=== PATIENT | female | born 1960 | race Caucasian/White ===

== ENCOUNTER 2018-05-17 07:56 | Emergency (ER) | payer BC, OTHER ==
[2018-05-17] MEDS ORDERED: Sodium Chloride 0.9% 10 ML Syringe FLUSH PRN (08:15)
[2018-05-17] MEDS ORDERED: Labetalol 100 MG/20 ML MDV IVPUSH ONE (08:16)
--- NOTE | 2018-05-17 08:21 | EDM.PDOC ---
ED HPI GENERAL MEDICAL PROBLEM - General Chief Complaint: Cardiovascular Problem Stated Complaint: LEFT ARM PAIN Time Seen by Provider: 05/17/18 08:03 Source of Information: Reports: Patient History Limitations: Reports: No Limitations - History of Present Illness INITIAL COMMENTS - FREE TEXT/NARRATIVE: The patient presents with elevated blood pressure and left arm pain. She woke up this morning and she was taking her blood pressure and it was very high over 200 systolic. She took her blood pressure many times and she says her left arm hurts now. She describes it more like tingling. She denies a headache, vision changes, fever, chills, cough, chest pain, shortness of breath, abdominal pain, nausea or vomiting. She has no numbness or weakness. She says her provider Nidia Alaniz took her off her atenolol and hydrochlorothiazide meds. Onset: Gradual Duration: Hour(s): Location: Reports: Upper Extremity, Left Quality: Reports: Other (Tingling) Severity: Mild Improves with: Reports: None Worsens with: Reports: None Associated Symptoms: Reports: No Other Symptoms Left Arm Pain Score (Numeric/FACES): 4 - Related Data Allergies Allergy/AdvReac Type Severity Reaction Status Date / Time adhesive tape Allergy Rash Verified 05/17/18 08:06 simvastatin [From Zocor] Allergy Muscle Verified 05/17/18 08:06 Aches Home Meds: Home Meds Cyanocobalamin/Folic AC/Vit B6 [Folbee] 1 tab PO DAILY 11/01/16 [History] Insulin Glarg,Human.Rec.Analog [Lantus] 33 units INJECT BEDTIME 11/01/16 [ History] Novalog Flexpen 0 units INJECT DAILY 11/01/16 [History] metFORMIN [Glucophage XR] 1,000 mg PO BID 11/01/16 [History] Cholecalciferol (Vitamin D3) [Vitamin D3] 6,000 unit PO DAILY 05/17/18 [History] Lutein/Minerals/Vit A,C & E [Ocuvite] 1 tab PO DAILY 05/17/18 [History] Medium Chain Triglycerides [Mct Oil] 1 ml PO DAILY 05/17/18 [History] Non-Formulary Medication [NF Drug] 1 ml PO DAILY 05/17/18 [History] Non-Formulary Medication [NF Drug] 1 tab PO DAILY 05/17/18 [History] Non-Formulary Medication [NF Drug] 1 tab PO TID 05/17/18 [History] Non-Formulary Medication [NF Drug] 2 ml PO DAILY 05/17/18 [History] Past Medical History HEENT History: Reports: Cataract, Impaired Vision Cardiovascular History: Reports: High Cholesterol, Hypertension Gastrointestinal History: Reports: Chronic Diarrhea, GERD Genitourinary History: Reports: Other (See Below) Other Genitourinary History: states kidneys are failing Endocrine/Metabolic History: Reports: Diabetes, Type II - Past Surgical History GI Surgical History: Reports: Cholecystectomy Social & Family History - Tobacco Use Smoking Status *Q: Former Smoker Used Tobacco, but Quit: Yes Month/Year Tobacco Last Used: 20 years Second Hand Smoke Exposure: No - Caffeine Use Caffeine Use: Reports: Coffee - Recreational Drug Use Recreational Drug Use: No - Living Situation & Occupation Living situation: Reports: Occupation: Employed ED ROS GENERAL - Review of Systems Review Of Systems: See Below Constitutional: Reports: No Symptoms HEENT: Reports: No Symptoms Respiratory: Reports: No Symptoms Cardiovascular: Reports: No Symptoms Endocrine: Reports: No Symptoms GI/Abdominal: Reports: No Symptoms : Reports: No Symptoms Musculoskeletal: Reports: Other (Left arm tingling) Neurological: Reports: No Symptoms ED EXAM, GENERAL - Physical Exam Exam: See Below Exam Limited By: No Limitations General Appearance: Alert, No Apparent Distress Ears: Normal External Exam Nose: Normal Inspection Head: Atraumatic, Normocephalic Neck: Normal Inspection Respiratory/Chest: No Respiratory Distress, Lungs Clear, Normal Breath Sounds Cardiovascular: Regular Rate, Rhythm, No Edema, No Murmur GI/Abdominal: Soft, Non-Tender, No Organomegaly, No Mass Back Exam: Normal Inspection Extremities: Normal Inspection Neurological: Alert, Oriented, No Motor/Sensory Deficits EKG INTERPRETATION EKG Date: 05/17/18 Time: 08:19 Rhythm: Other (Sinus tachycardia) Rate (Beats/Min): 103 [place]: Normal P-Wave: Present QRS: Normal ST-T: Normal QT: Normal Course - Vital Signs Last Recorded V/S: Last Vital Signs Temp 97 F 05/17/18 07:59 Pulse 85 05/17/18 09:21 Resp 18 05/17/18 07:59 BP 176/66 H 05/17/18 09:21 Pulse Ox 98 05/17/18 07:59 - Orders/Labs/Meds Orders: Active Orders 24 hr Category Date Time Status Cardiac Monitoring [RC] . DIRECTED Care 05/17/18 08:15 Active EKG Documentation Completion [RC] STAT Care 05/17/18 08:15 Active Peripheral IV Care [RC] . DIRECTED Care 05/17/18 08:16 Active CBC W/O DIFF,HEMOGRAM [HEME] MOTH@0700 Lab 05/18/18 07:00 Ordered CBC W/O DIFF,HEMOGRAM [HEME] MOTH@0700 Lab 05/21/18 07:00 Ordered CBC W/O DIFF,HEMOGRAM [HEME] MOTH@0700 Lab 05/25/18 07:00 Ordered CBC W/O DIFF,HEMOGRAM [HEME] MOTH@0700 Lab 05/28/18 07:00 Ordered CBC W/O DIFF,HEMOGRAM [HEME] MOTH@0700 Lab 06/01/18 07:00 Ordered CBC W/O DIFF,HEMOGRAM [HEME] MOTH@0700 Lab 06/04/18 07:00 Ordered Heparin Sodium/D5W [Heparin 25,000 Units in D5W 500 ML] Med 05/17/18 09:30 Active 25,000 units in 500 ml IV TITRATE Nitroglycerin/D5W [Nitroglycerin 25 MG/D5W 250 ML] Med 05/17/18 09:30 Active 25 mg in 250 ml IV TITRATE Sodium Chloride 0.9% [Saline Flush] Med 05/17/18 08:15 Active 10 ml FLUSH ASDIRECTED PRN Peripheral IV Insertion Adult [OM.PC] Stat Oth 05/17/18 08:15 Ordered Medication Orders Heparin Sodium/Dextrose (Heparin 25,000 Units In D5w 500 Ml) 25,000 units in 500 mls @ 20.257 mls/hr IV TITRATE CUATE; Protocol Nitroglycerin/Dextrose (Nitroglycerin 25 Mg/D5w 250 Ml) 25 mg in 250 mls @ 3 mls/hr IV TITRATE CUATE; Protocol Sodium Chloride (Saline Flush) 10 ml FLUSH ASDIRECTED PRN PRN Reason: Keep Vein Open Last Admin: 05/17/18 08:28 Dose: 10 ml Labs: Laboratory Tests 05/17/18 05/17/18 Range/Units 08:25 08:25 WBC 9.57 (3.98-10.04) K/mm3 RBC 4.58 (3.98-5.22) M/mm3 Hgb 10.8 L (11.2-15.7) gm/L Hct 35.9 (34.1-44.9) % MCV 78.4 L (79.4-94.8) fl MCH 23.6 L (25.6-32.2) pg MCHC 30.1 L (32.2-35.5) g/dl RDW Std Deviation 47.7 H (36.4-46.3) fL Plt Count 417 H (182-369) K/mm3 MPV 9.9 (9.4-12.3) fl Neut % (Auto) 74.7 H (34.0-71.1) % Lymph % (Auto) 16.6 L (19.3-51.7) % [place] % (Auto) 6.8 (4.7-12.5) % Eos % (Auto) 1.5 (0.7-5.8) Baso % (Auto) 0.2 (0.1-1.2) % Neut # (Auto) 7.15 H (1.56-6.13) K/mm3 Lymph # (Auto) 1.59 (1.18-3.74) K/mm3 [place] # (Auto) 0.65 H (0.24-0.36) K/mm3 Eos # (Auto) 0.14 (0.04-0.36) K/mm3 Baso # (Auto) 0.02 (0.01-0.08) K/mm3 Sodium 142 (136-145) mEq/L Potassium 3.3 L (3.5-5.1) mEq/L Chloride 105 (98-107) mEq/L Carbon Dioxide 24 (21-32) mEq/L Anion Gap 16.3 H (5-15) BUN 15 (7-18) mg/dL Creatinine 1.1 H (0.55-1.02) mg/dL Est Cr Clr Drug Dosing 39.07 mL/min Estimated GFR (MDRD) 51 (>60) mL/min BUN/Creatinine Ratio 13.6 L (14-18) Glucose 232 H (74-106) mg/dL Calcium 8.6 (8.5-10.1) mg/dL Total Bilirubin 0.3 (0.2-1.0) mg/dL AST 40 H (15-37) U/L ALT 23 (14-59) U/L Alkaline Phosphatase 133 H (46-116) U/L Troponin I 3.749 H* (0.00-0.056) ng/mL Total Protein 7.4 (6.4-8.2) g/dl Albumin 3.2 L (3.4-5.0) g/dl Globulin 4.2 gm/dL Albumin/Globulin Ratio 0.8 L (1-2) Meds: Medications Generic Name Dose Route Start Last Admin Trade Name Freq PRN Reason Stop Dose Admin Heparin Sodium/Dextrose 25,000 units in 500 mls @ 20.257 mls/hr 05/17/18 09: 30 Heparin 25,000 Units In D5w 500 Ml IV TITRATE CUATE Protocol 11 UNITS/KG/HR Nitroglycerin/Dextrose 25 mg in 250 mls @ 3 mls/hr 05/17/18 09:30 Nitroglycerin 25 Mg/D5w 250 Ml IV TITRATE CUATE Protocol Sodium Chloride 10 ml 05/17/18 08:15 05/17/18 08:28 Saline Flush FLUSH 10 ml ASDIRECTED PRN Administration Keep Vein Open Discontinued Medications Generic Name Dose Route Start Last Admin Trade Name Freq PRN Reason Stop Dose Admin Aspirin 324 mg 05/17/18 09:24 05/17/18 09:32 Aspirin PO 05/17/18 09:25 324 mg ONETIME ONE Administration Heparin Sodium (Porcine) 5,000 units 05/17/18 09:25 Heparin Sodium IVPUSH 05/17/18 09:26 ONETIME ONE Labetalol HCl 20 mg 05/17/18 08:16 05/17/18 08:27 Normodyne IVPUSH 05/17/18 08:17 20 mg ONETIME ONE Administration Protocol - Re-Assessments/Exams Free Text/Narrative Re-Assessment/Exam: 05/17/18 08:24 I ordered an IV saline lock, EKG, labs and labetalol 20mg IV. Her EKG shows a sinus tachycardia with no acute changes. The patient told my nurse later that she is on a bunch of homeopathic meds from a provider in [place]. 05/17/18 09:34 Her Hgb was a little low at 10.8. Her platelets were elevated at 417. Her K was low at 3.3. Her anion gap is elevated at 16.3. Her creatinine is elevated at 1.1. Her glucose is elevated at 232. Her AST was elevated at 40. Her Alk Phos was elevated at 133. Her Troponin was very elevated at 3.749. She has no more tingling or pain in her left arm. She is having a nonSTEMI. I ordered aspirin 324mg PO, heparin bolus of 5,000units IV, heparin drip at 1000units per hour, and nitro 3mls/hr. She tells me now that she did have some right arm pain on Friday when she was working. It went away and she did not think anything of it. She did not have chest pain or shortness of breath. This morning she had some left arm pain/tingling. She had no shortness of breath or chest pain. She has never had an NV or trouble with her heart before. 05/17/18 09:47 I called [facility] in [place] and talked with the worm packer Dr Garrett and she wanted metoprolol 25mg PO and lipitor. We do not have lipitor so I ordered simvistatin 40mg. I also talked with the hospitalist Dr Hernandez and he accepted the patient. Departure - Departure Time of Disposition: 09:50 Disposition: DC/Tfer to Acute Hospital 02 Reason for Transfer *Q: Primary PCI Indicated Condition: Serious Clinical Impression: Non-STEMI (non-ST elevated myocardial infarction), Hypertensive emergency Referrals: PCP,None [Primary Care Provider] - Forms: ED Department Discharge - My Orders Last 24 Hours: My Active Orders 05/17/18 08:15 Cardiac Monitoring [RC] . DIRECTED EKG Documentation Completion [RC] STAT Sodium Chloride 0.9% [Saline Flush] 10 ml FLUSH ASDIRECTED PRN Peripheral IV Insertion Adult [OM.PC] Stat 05/17/18 08:16 Peripheral IV Care [RC] . DIRECTED 05/17/18 09:30 Heparin Sodium/D5W [Heparin 25,000 Units in D5W 500 ML] 25,000 units in 500 ml IV TITRATE Nitroglycerin/D5W [Nitroglycerin 25 MG/D5W 250 ML] 25 mg in 250 ml IV TITRATE 05/18/18 07:00 CBC W/O DIFF,HEMOGRAM [HEME] MOTH@0700 05/21/18 07:00 CBC W/O DIFF,HEMOGRAM [HEME] MOTH@69905/25/18 07:00 CBC W/O DIFF,HEMOGRAM [HEME] MOTH@69905/28/18 07:00 CBC W/O DIFF,HEMOGRAM [HEME] MOTH@69906/01/18 07:00 CBC W/O DIFF,HEMOGRAM [HEME] MOTH@69906/04/18 07:00 CBC W/O DIFF,HEMOGRAM [HEME] MOTH@699 - Assessment/Plan Last 24 Hours: My Active Orders 05/17/18 08:15 Cardiac Monitoring [RC] . DIRECTED EKG Documentation Completion [RC] STAT Sodium Chloride 0.9% [Saline Flush] 10 ml FLUSH ASDIRECTED PRN Peripheral IV Insertion Adult [OM.PC] Stat 05/17/18 08:16 Peripheral IV Care [RC] . DIRECTED 05/17/18 09:30 Heparin Sodium/D5W [Heparin 25,000 Units in D5W 500 ML] 25,000 units in 500 ml IV TITRATE Nitroglycerin/D5W [Nitroglycerin 25 MG/D5W 250 ML] 25 mg in 250 ml IV TITRATE 05/18/18 07:00 CBC W/O DIFF,HEMOGRAM [HEME] MOTH@69905/21/18 07:00 CBC W/O DIFF,HEMOGRAM [HEME] MOTH@69905/25/18 07:00 CBC W/O DIFF,HEMOGRAM [HEME] MOTH@69905/28/18 07:00 CBC W/O DIFF,HEMOGRAM [HEME] MOTH@69906/01/18 07:00 CBC W/O DIFF,HEMOGRAM [HEME] MOTH@69906/04/18 07:00 CBC W/O DIFF,HEMOGRAM [HEME] MOTH@699
[2018-05-17] MEDS ORDERED: Aspirin 81 MG Tab.Chew PO ONE (09:24)
[2018-05-17] MEDS ORDERED: Heparin Sodium 5,000 Units/ML Vial IVPUSH ONE (09:25)
[2018-05-17] MEDS ORDERED: Nitroglycerin/D5W 25 MG/250 ML BOTTLE IV SCH (09:30)
[2018-05-17] MEDS ORDERED: Heparin Sodium/D5W 25,000 UNITS/500 ML BAG IV SCH (09:30)
[2018-05-17] MEDS ORDERED: Nitroglycerin/D5W 25 MG/250 ML BOTTLE IV ONE (09:39)
[2018-05-17] MEDS ORDERED: Metoprolol Tartrate 25 MG Tab PO ONE (09:42)
[2018-05-17] MEDS ORDERED: Simvastatin 40 MG Tab PO ONE (09:46)
[2018-05-17 10:34] VITALS: BP 177/66
--- NOTE | 2018-05-18 08:35 | CR ---
Chest: Portable view of the chest was obtained. Comparison: No prior chest x-ray. Heart size is accentuated from portable technique. Upper mediastinum is within normal limits. Lungs are clear without acute parenchymal change. Bony structures are grossly intact. Impression: 1. Nothing acute is seen on portable chest x-ray. Diagnostic code #1
== END 2018-05-17 10:25 ==
LOC: JD.ED 07:56
DX: I21.4 Non-ST elevation (NSTEMI) myocardial infarction (principal); I16.0 Hypertensive urgency; E11.9 Type 2 diabetes mellitus without complications; I10 Essential (primary) hypertension; E78.00 Pure hypercholesterolemia, unspecified; Z79.4 Long term (current) use of insulin; Z79.899 Other long term (current) drug therapy; Z91.09 Other allergy status, other than to drugs and biological substances; Z88.8 Allergy status to other drugs, medicaments and biological substances
CPT/HCPCS: 36415; 71045; 80053; 84484; 85025; 93005; 96365; 96368; 96375; 96376; 99285; A9270; J1644; J3490; J7050

== ENCOUNTER 2018-12-10 16:34 | Emergency (ER) | payer BC, MEDICAID ==
[2018-12-10 16:46] VITALS: BP 153/70
[2018-12-10] MEDS ORDERED: Acetaminophen 325 MG Tab PO ONE (16:46)
--- NOTE | 2018-12-10 17:19 | CT ---
Head CT Technique: Multiple axial sections were obtained to the brain. Intravenous contrast was not utilized. Comparison: Prior head CT study of 07/24/18. Findings: Ventricles along with basal cisterns and sulci over the convexities are mildly prominent. Old infarct is noted within the right frontal region. Mild diminished density is noted within portions of the periventricular white matter compatible with small vessel ischemic demyelination change. Old lacunar infarct is noted within the left basal ganglia. No other abnormal parenchymal densities are seen. No evidence of intracranial hemorrhage. No midline shift or mass effect is seen. Bone window settings were reviewed which shows soft tissue swelling within the left frontal scalp. No acute calvarial abnormality is seen. Visualized sinuses are clear. Impression: 1. Senescent change as noted above. 2. No acute intracranial abnormality is seen. Soft tissue swelling is seen within the left frontal scalp. No acute calvarial fracture is seen. Diagnostic code #2
--- NOTE | 2018-12-10 18:21 | EDM.PDOC ---
ED HPI GENERAL MEDICAL PROBLEM - General Chief Complaint: Head Injury Stated Complaint: [facility] Time Seen by Provider: 12/10/18 16:40 Source of Information: Reports: Patient, RN Notes Reviewed - History of Present Illness INITIAL COMMENTS - FREE TEXT/NARRATIVE: 58-year-old female tripped injuring her right knee and also hitting her forehead and nose on pavement. She was in the process of getting into a vehicle , states her pain got caught up in her feet. There was no LOC. She has very minimal headache. However she is on eliquis blood thinner. She did scrape up her nose pretty good. However there is no bleeding from either nares. No nausea or vomiting. Her right knee is what hurts the most at this time. No chest pain or difficulty breathing. Face/Facial Pain Score (Numeric/FACES): 0 Right Knee Pain Score (Numeric/FACES): 5 - Related Data Allergies Allergy/AdvReac Type Severity Reaction Status Date / Time adhesive tape Allergy Rash Verified 12/10/18 19:51 simvastatin [From Zocor] AdvReac Muscle Verified 12/10/18 19:51 Aches Aaxfugg-Vil-Dtp Reductase AdvReac Muscle Verified 12/10/18 19:51 Inhibitor Aches Home Meds: Home Meds metFORMIN [Glucophage XR] 1,000 mg PO BID 11/01/16 [History] Lutein/Minerals/Vit A,C & E [Ocuvite] 1 tab PO DAILY 05/17/18 [History] ALPRAZolam [Xanax] 1 tab PO TID PRN 07/21/18 [History] Apixaban [Eliquis] 5 mg PO BID 07/21/18 [History] Carvedilol 25 mg PO BID 07/21/18 [History] Clopidogrel [Plavix] 75 mg PO DAILY 07/21/18 [History] Furosemide [Lasix] 20 mg PO DAILY 07/21/18 [History] Insulin Aspart [NovoLOG] 4 - 15 unit SUBCUT QID 07/21/18 [History] Insulin Glarg,Human.Rec.Analog [Lantus] 35 units SUBCUT BID 07/21/18 [History] Nitroglycerin [Nitrostat] 0.4 mg PO ASDIRECTED PRN 07/21/18 [History] Polyethylene Glycol [Polyox Wsr-301] 1 pack PO DAILY 07/21/18 [History] Pravastatin [Pravachol] 20 mg PO DAILY 07/21/18 [History] amLODIPine Besylate [Amlodipine Besylate] 5 mg PO DAILY 07/21/18 [History] Lisinopril [Prinivil] 10 mg PO DAILY #30 tablet 07/24/18 [Rx] Acetaminophen/HYDROcodone [Alma 325-5 MG] 1 tab PO Q6H PRN #10 tablet 12/10/18 [Rx] Cyanocobalamin/Folic AC/Vit B6 [Folbee] 1 tab PO DAILY 12/10/18 [History] Past Medical History HEENT History: Reports: Cataract, Impaired Vision Cardiovascular History: Reports: High Cholesterol, Hypertension Gastrointestinal History: Reports: Chronic Diarrhea, GERD Genitourinary History: Reports: Other (See Below) Other Genitourinary History: states kidneys are failing Neurological History: Reports: CVA Endocrine/Metabolic History: Reports: Diabetes, Type II - Infectious Disease History Infectious Disease History: Reports: Chicken Pox, Measles, Mumps - Past Surgical History GI Surgical History: Reports: Cholecystectomy Social & Family History - Family History Family Medical History: Noncontributory - Tobacco Use Smoking Status *Q: Never Smoker Second Hand Smoke Exposure: No - Caffeine Use Caffeine Use: Reports: Coffee - Recreational Drug Use Recreational Drug Use: No - Living Situation & Occupation Living situation: Reports: Occupation: Employed ED ROS GENERAL - Review of Systems Review Of Systems: See Below Constitutional: Denies: Diaphoresis HEENT: Reports: Nose Pain. Denies: Ear Discharge, Ear Pain, Nosebleed Respiratory: Denies: Shortness of Breath, Wheezing Cardiovascular: Denies: Chest Pain GI/Abdominal: Denies: Abdominal Pain, Nausea, Vomiting Musculoskeletal: Reports: Joint Pain (Right knee), Joint Swelling (Right knee) Neurological: Reports: Dizziness (Mild mild), Headache. Denies: Numbness, Tingling ED EXAM, HEAD INJURY - Physical Exam Exam: See Below General Appearance: Alert, Mild Distress Head: Facial Abrasions (There is some significant abrasion injury of the nose but no major swelling tenderness or deformity of the nose and no active bleeding ), Facial Swelling (There is swelling of the upper forehead). No: Green's Sign , Raccoon Eyes Eyes: Bilateral Eye: PERRL Ears: Normal External Exam, Normal Canal Throat/Mouth: Normal Inspection, Normal Oropharynx Neck: Non-Tender, Full Range of Motion Respiratory: No Respiratory Distress, Lungs Clear Cardiovascular: Regular Rate, Rhythm Extremities: Normal Inspection, Normal Range of Motion, Joint Swelling (There is mild swelling of the right knee and moderate tenderness anteriorly and laterally, pain with motion, joint is stable,mild superficial abrasion anteriorly) Neurologic: No Motor/Sensory Deficits Skin: Warm/Dry Course - Vital Signs Last Recorded V/S: Last Vital Signs Temp 97.3 F 12/10/18 16:37 Pulse 71 12/10/18 16:37 Resp 18 12/10/18 16:37 BP 153/70 H 12/10/18 16:37 Pulse Ox 99 12/10/18 16:37 - Orders/Labs/Meds Meds: Medications Discontinued Medications Generic Name Dose Route Start Last Admin Trade Name Corrina PRN Reason Stop Dose Admin Acetaminophen 975 mg 12/10/18 16:46 12/10/18 16:55 Tylenol PO 12/10/18 16:47 975 mg NOW ONE Administration Ketorolac Tromethamine 30 mg 12/10/18 18:28 12/10/18 18:39 Toradol IM 12/10/18 18:29 30 mg ONETIME ONE Administration - Re-Assessments/Exams Free Text/Narrative Re-Assessment/Exam: 12/11/18 08:42. Radiology report this morning that indicates there is a nondisplaced lateral tibial plateau fracture, possible medial tibial plateau. See radiology report for details. I did not appreciate those findings at time of her visit yesterday. Now when I go back and look I do see the lateral hairline nondisplaced fracture. I have called, talked to patient, she is going to return for knee immobilizer and crutches. She had a walker at home but is having a lot of discomfort with any type of weightbearing. She will need to follow up with one of our Orthopedists next week. 12/11/18 14:30. Patient did return to the ED for knee immobilizer and consideration was given for having her use crutches at home. However her mobility is not adequate to allow for that. We have asked Faith our nursing home social worker to come visit with her and she has arranged for [facility] to [facility]. She does have insurance that will cover and she has obtained authorization. I have written preliminary fdc admission orders. I will discuss this with Dr. Winters her regular physician so he is made aware of her injury and being admitted to the fdc. Have written preliminary admit orders for the fdc and also have recomended she see one of our Orthpedists early next week. We do not have any Ortho service station helper today. Departure - Departure Time of Disposition: 18:19 Disposition: DC[facility] to [facility] Condition: Fair Clinical Impression: Fall Qualifiers: Encounter type: initial encounter Qualified Code(s): W19.XXXA - Unspecified fall, initial encounter Forehead contusion Qualifiers: Encounter type: initial encounter Qualified Code(s): S00.83XA - Contusion of other part of head, initial encounter Nose abrasion Qualifiers: Encounter type: initial encounter Qualified Code(s): S00.31XA - Abrasion of nose, initial encounter Tibial plateau fracture, right Qualifiers: Encounter type: initial encounter Fracture type: closed Qualified Code(s): S82.141A - Displaced bicondylar fracture of right tibia, initial encounter for closed fracture - Discharge Information Prescriptions: Acetaminophen/HYDROcodone [Alma 325-5 MG] 1 tab PO Q6H PRN #10 tablet PRN Reason: Pain Instructions: Facial or Scalp Contusion, [id number], Contusion, [id number] Referrals: Lily Dickey MD [Primary Care Provider] - Forms: ED Department Discharge Additional Instructions: Kiet wrap right knee, knee immobilize, crutches, nonweightbearing as much as possible. ice packs and elevation as needed for swelling, Tylenol for mild to moderate pain or hydrocodone if needed for more severe pain, do not take Tylenol and hydrocodone at the same time. You will need to see an Orthopedist next week. See Dr Matos, Bone and [facility] at our [facility] clinic here in [place], [phone]za at [facility], [phone]. Call for appointment. Return to ED as needed if symptoms worsening in any way.
[2018-12-10] MEDS ORDERED: Ketorolac 30 MG/ML SDV IM ONE (18:28)
--- NOTE | 2018-12-11 07:16 | CR ---
Right knee: Four views of the right knee were obtained. Comparison: No previous knee study. Fracture is identified within the lateral tibial plateau. Possible fracture within the medial tibial plateau is also noted. No significant displacement is seen on this study. Fat fluid level is seen within the suprapatellar pouch secondary to the fracture. No additional abnormality is seen. Impression: 1. Lateral tibial plateau fracture and possible medial tibial plateau fracture. No significant displacement is seen. 2. Fat/fluid level within the suprapatellar pouch. Diagnostic code #3
== END 2018-12-10 19:24 ==
LOC: JD.ED 16:34
DX: S82.141A Displaced bicondylar fracture of right tibia, initial encounter for closed fracture (principal); S00.83XA Contusion of other part of head, initial encounter; S00.31XA Abrasion of nose, initial encounter; W01.10XA Fall on same level from slipping, tripping and stumbling with subsequent striking against unspecified object, initial encounter; Z88.8 Allergy status to other drugs, medicaments and biological substances; Z79.899 Other long term (current) drug therapy; E78.00 Pure hypercholesterolemia, unspecified; I10 Essential (primary) hypertension; E11.9 Type 2 diabetes mellitus without complications; Z86.73 Personal history of transient ischemic attack (TIA), and cerebral infarction without residual deficits
CPT/HCPCS: 70450; 73564; 96372; 99283; A9270; J1885

== ENCOUNTER 2019-05-13 06:50 | Day surgery (SDC) | payer MEDICAID ==
[2019-05-13] MEDS ORDERED: Lidocaine 1% PF 2 ML SDV INJECT SCH (07:00)
[2019-05-13] MEDS ORDERED: Pilocarpine 4% Ophth Soln 15 ML Bot EYELF SCH (07:00)
[2019-05-13] MEDS ORDERED: Cefuroxime 10 MG/ML SYRINGE EYELF SCH (07:00)
[2019-05-13] MEDS: Polymyxin B/Trimethoprim 10 ML Bottle EYELF SCH ×3 (07:10→08:38)
[2019-05-13] MEDS: Brimonidine 0.2% Ophth Soln 15 ML Bottle EYELF SCH ×3 (07:15→08:38)
[2019-05-13] MEDS: Phenylephrine 2.5% Ophth Soln 2 ML Bot EYELF SCH ×5 (07:20→08:20)
[2019-05-13] MEDS: Tropicamide 1% Ophth Soln 15 ML Bottle EYELF SCH ×4 (07:25→08:09)
--- NOTE | 2019-05-13 07:25 | PCM.PREANE ---
Preanesthetic Assessment - Anesthesia/Transfusion/Family Hx Anesthesia History: Prior Anesthesia Without Reaction Family History of Anesthesia Reaction: No Transfusion History: Prior Transfusion Without Reaction Intubation History: Unknown - Review of Systems General: No Symptoms Pulmonary: No Symptoms Cardiovascular: No Symptoms Gastrointestinal: No Symptoms Neurological: No Symptoms Other: Reports: Diabetes (BS 53 @ 0712 pt given few sips of juice, asymptomatic) - Physical Assessment NPO Status Date: 05/13/19 NPO Status Time: 07:12 ASA Class: 2 Mental Status: Alert & Oriented x3 Airway Class: Mallampati = 2 Dentition: Reports: Normal Dentition Thyro-Mental Finger Breadths: 3 Mouth Opening Finger Breadths: 3 ROM/Head Extension: Full Lungs: Clear to Auscultation, Normal Respiratory Effort Cardiovascular: Regular Rate, Regular Rhythm - Lab Values: Laboratory Last Values POC Glucose 53 mg/dL (80-115) L 05/13/19 07:12 - Allergies Allergies/Adverse Reactions: Allergies Allergy/AdvReac Type Severity Reaction Status Date / Time adhesive tape Allergy Rash Verified 05/12/19 14:17 simvastatin [From Zocor] AdvReac Muscle Verified 05/12/19 14:17 Aches Gseqfwy-[id number]-[id number] Reductase AdvReac Muscle Verified 05/12/19 14:17 Inhibitor Aches - Acknowledgements Anesthesia Type Planned: MAC Pt an Appropriate Candidate for the Planned Anesthesia: Yes Alternatives and Risks of Anesthesia Discussed w Pt/Guardian: Yes Pt/Guardian Understands and Agrees with Anesthesia Plan: Yes PreAnesthesia Questionnaire HEENT History: Reports: Cataract, Impaired Vision Cardiovascular History: Reports: High Cholesterol, Hypertension, Other (See Below) (ASCVD) Respiratory History: Reports: None Gastrointestinal History: Reports: Chronic Diarrhea, GERD Genitourinary History: Reports: Other (See Below) (renal disease stage 3) Other Genitourinary History: states kidneys are failing Musculoskeletal History: Reports: Arthritis, Other (See Below) (pt states has a stiff neck today, full ROM noted) Neurological History: Reports: CVA (2018, no residual noted) Endocrine/Metabolic History: Reports: Diabetes, Type I, Diabetes, Type II - Infectious Disease History Infectious Disease History: Reports: Chicken Pox, Measles, Mumps - Past Surgical History HEENT Surgical History: Reports: Cataract Surgery GI Surgical History: Reports: Bariatric Procedure, Cholecystectomy, Other (See Below) Dermatological Surgical History: Reports: Plastic Surgical Reconstruction/ Repair (pt states surgeries to remove skin after gastric bypass, arms, abdomen, knees) - SUBSTANCE USE Smoking Status *Q: Former Smoker - HOME MEDS Home Medications: Home Meds metFORMIN [Glucophage XR] 1,000 mg PO BID 11/01/16 [History] Lutein/Minerals/Vit A,C & E [Ocuvite] 1 tab PO DAILY 05/17/18 [History] ALPRAZolam [Xanax] 1 tab PO TID PRN 07/21/18 [History] Apixaban [Eliquis] 5 mg PO BID 07/21/18 [History] Carvedilol 25 mg PO BID 07/21/18 [History] Clopidogrel [Plavix] 75 mg PO DAILY 07/21/18 [History] Furosemide [Lasix] 20 mg PO DAILY 07/21/18 [History] Insulin Aspart [NovoLOG] 4 - 15 unit SUBCUT QID 07/21/18 [History] Insulin Glarg,Human.Rec.Analog [Lantus] 35 units SUBCUT BID 07/21/18 [History] Nitroglycerin [Nitrostat] 0.4 mg PO ASDIRECTED PRN 07/21/18 [History] Polyethylene Glycol [Polyox Wsr-301] 1 pack PO DAILY 07/21/18 [History] Pravastatin [Pravachol] 20 mg PO DAILY 07/21/18 [History] amLODIPine Besylate [Amlodipine Besylate] 5 mg PO DAILY 07/21/18 [History] Lisinopril [Prinivil] 10 mg PO DAILY #30 tablet 07/24/18 [Rx] Acetaminophen/HYDROcodone [[place] 325-5 MG] 1 tab PO Q6H PRN #10 tablet 12/10/18 [Rx] Cyanocobalamin/Folic AC/Vit B6 [Folbee] 1 tab PO DAILY 12/10/18 [History] - CURRENT (IN HOUSE) MEDS Current Meds: Current Medications Brimonidine Tartrate (Brimonidine Tartrate 0.2% Ophth Soln) 0 ml EYELF ASDIRECTED CUATE Stop: 05/13/19 18:00 Last Admin: 05/13/19 07:15 Dose: 1 drop Cefuroxime Sodium (Zinacef) 0 mg EYELF ASDIRECTED CAUTE Stop: 05/13/19 18:00 Lidocaine HCl (Xylocaine-Mpf 1%) 0 ml INJECT ASDIRECTED CUATE Stop: 05/13/19 18:00 Phenylephrine HCl (Giovany-Synephrine 2.5% Ophth Soln) 0 ml EYELF ASDIRECTED CUATE Stop: 05/13/19 18:00 Pilocarpine HCl (Pilocar 4% Ophth Soln) 0 ml EYELF ASDIRECTED CUATE Stop: 05/13/19 18:00 Polymyxin/Trimethoprim Sulfate (Polytrim Ophth Soln) 0 ml EYELF ASDIRECTED CUATE Stop: 05/13/19 18:00 Last Admin: 05/13/19 07:10 Dose: 1 drop Tetracaine HCl (Tetracaine 0.5% Steri-Unit Jennifer) 0 ml EYELF ASDIRECTED CUATE Stop: 05/13/19 18:00 Tropicamide (Mydriacyl 1% Ophth Soln) 0 ml EYELF ASDIRECTED CUATE Stop: 05/13/19 18:00
[2019-05-13] MEDS: Tetracaine HCl/PF 0.5% 4 ML Bottle EYELF SCH ×4 (08:12→08:27)
--- NOTE | 2019-05-13 08:42 | PCM48HPAN ---
Post Anesthesia Note - EVALUATION WITHIN 48HRS OF ANESTHETIC Vital Signs in Normal Range: Yes Patient Participated in Evaluation: Yes Respiratory Function Stable: Yes Airway Patent: Yes Cardiovascular Function Stable: Yes Hydration Status Stable: Yes Pain Control Satisfactory: Yes Nausea and Vomiting Control Satisfactory: Yes Mental Status Recovered: Yes Vital Signs: Last Vital Signs Temp 36.5 C 05/13/19 07:00 Pulse 66 05/13/19 07:00 Resp 16 05/13/19 07:00 BP 181/65 H 05/13/19 07:00 Pulse Ox 100 05/13/19 07:00
[2019-05-13 09:01] VITALS: BP 159/64
== END 2019-05-13 08:54 | disposition home or self-care (01) ==
LOC: JD.SDS 06:50
PROVIDERS: ATTEND Ophthalmology
DX: E11.36 Type 2 diabetes mellitus with diabetic cataract (principal); H25.812 Combined forms of age-related cataract, left eye; H21.81 Floppy iris syndrome; H21.42 Pupillary membranes, left eye; I12.9 Hypertensive chronic kidney disease with stage 1 through stage 4 chronic kidney disease, or unspecified chronic kidney disease; E11.22 Type 2 diabetes mellitus with diabetic chronic kidney disease; N18.3 Chronic kidney disease, stage 3 (moderate); E78.00 Pure hypercholesterolemia, unspecified; Z88.8 Allergy status to other drugs, medicaments and biological substances; Z91.048 Other nonmedicinal substance allergy status; Z98.41 Cataract extraction status, right eye; Z96.1 Presence of intraocular lens; Z87.891 Personal history of nicotine dependence; Z83.518 Family history of other specified eye disorder; Z79.01 Long term (current) use of anticoagulants; Z79.02 Long term (current) use of antithrombotics/antiplatelets; Z79.4 Long term (current) use of insulin; Z79.899 Other long term (current) drug therapy
CPT/HCPCS: 66982; 82962; J0697; J2001; C1780

== ENCOUNTER 2020-05-02 17:08 | Inpatient (IN) | payer MEDICAID ==
--- NOTE | 2020-05-02 17:15 | EDM.PDOC ---
ED HPI GENERAL MEDICAL PROBLEM - General Chief Complaint: Neuro Symptoms/Deficits Stated Complaint: [facility] Time Seen by Provider: 05/02/20 17:14 Source of Information: Reports: Patient, EMS, [facility] Records History Limitations: Reports: No Limitations - History of Present Illness INITIAL COMMENTS - FREE TEXT/NARRATIVE: 60-year-old female presents to the ED per [facility] from local long term--[facility]. Apparently she was getting ready for supper and at about 1624 hrs. started to have garbled speech which was hard for other people to understand. Patient recognizes that her speech is not coming out correctly. She has dysarthric speech and some troubles finding the right words to say i.e. expressive aphasia. She denies a headache or nausea or vomiting. She denies any visual acuity changes. She could walk okay. She denies any recent falls or closed head injuries. Stroke alert was called and she was brought immediately to the hospital for evaluation. 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 She has had a previous cerebrovascular accident and has known coronary artery disease. She is not known to be in atrial fibrillation. She is an insulin-dependent diabetic. Blood sugar at the bedside was 146. Onset: Today, Sudden Onset Date: 05/02/20 Onset Time: 16:24 Duration: Minutes:, Constant Location: Reports: Other (Dysarthric speech with some expressive aphasia. She is still understandable and symptoms are quite mild at this time.) Quality: Reports: Other (Change in speech with dysarthria and mild expressive aphasia.) Severity: Mild Improves with: Reports: None Worsens with: Reports: None Context: Reports: Other. Denies: Activity, Exercise, Lifting, Sick Contact, Trauma Associated Symptoms: Reports: No Other Symptoms (Spontaneous occurrence about 1624 hrs. today.). Denies: Confusion, Chest Pain, Cough, cough w sputum, Diaphoresis, Fever/Chills, Headaches, Loss of Appetite, Malaise, Nausea/Vomiting, Rash, Shortness of Breath, Syncope Treatments [place]HALT LAYER: Reports: Other (see below) (None.) - Related Data Allergies Allergy/AdvReac Type Severity Reaction Status Date / Time adhesive tape Allergy Rash Verified 05/02/20 17:21 simvastatin [From Zocor] AdvReac Muscle Verified 08/11/20 17:21 Aches Qrkfzas-Usx-Itd Reductase AdvReac Muscle Verified 05/02/20 17:21 Inhibitor Aches Home Meds: Home Meds Apixaban [Eliquis] 5 mg PO BID 07/21/18 [History] Nitroglycerin [Nitrostat] 0.4 mg PO ASDIRECTED PRN 07/21/18 [History] Pravastatin [Pravachol] 20 mg PO QPM 07/21/18 [History] amLODIPine Besylate [Amlodipine Besylate] 5 mg PO DAILY 07/21/18 [History] carvediloL [Carvedilol] 25 mg PO BID 07/21/18 [History] Acetaminophen [Tylenol] 650 mg PO BID 05/02/20 [History] Escitalopram Oxalate [Lexapro] 20 mg PO DAILY 05/02/20 [History] Insulin Aspart [NovoLOG] 6 unit SUBCUT TID 05/02/20 [History] Insulin Glargine,Hum.Rec.Anlog [Lantus Solostar] 4 units SUBCUT QPM 05/02/20 [History] Insulin Glargine,Hum.Rec.Anlog [Lantus Solostar] 10 unit SUBCUT QAM 05/02/20 [History] Solifenacin Succinate 10 mg PO QPM 05/02/20 [History] lisinopriL [Prinivil] 20 mg PO DAILY 05/02/20 [History] traMADol [Ultram] 50 mg PO TID 05/02/20 [History] Past Medical History HEENT History: Reports: Cataract, Impaired Vision Cardiovascular History: Reports: High Cholesterol, Hypertension, Other (See Below) (ASCVD) Respiratory History: Reports: None Gastrointestinal History: Reports: Chronic Diarrhea, GERD Genitourinary History: Reports: Other (See Below) (renal disease stage 3) Other Genitourinary History: states kidneys are failing Musculoskeletal History: Reports: Arthritis, Other (See Below) (pt states has a stiff neck today, full ROM noted) Neurological History: Reports: CVA (2018, no residual noted identified to have a complete occlusion of her left carotid artery. She has had surgery in this area as well.) Endocrine/Metabolic History: Reports: Diabetes, Type I, Diabetes, Type II - Infectious Disease History Infectious Disease History: Reports: Chicken Pox, Measles, Mumps - Past Surgical History HEENT Surgical History: Reports: Cataract Surgery GI Surgical History: Reports: Bariatric Procedure, Cholecystectomy, Other (See Below) Dermatological Surgical History: Reports: Plastic Surgical Reconstruction/Repair (pt states surgeries to remove skin after gastric bypass, arms, abdomen, knees) Social & Family History - Family History Family Medical History: Noncontributory - Tobacco Use Smoking Status *Q: Never Smoker - Caffeine Use Caffeine Use: Reports: None - Recreational Drug Use Recreational Drug Use: No - Living Situation & Occupation Living situation: Reports: Single, Extended Care Facility (Currently residing at [facility]) ED ROS GENERAL - Review of Systems Review Of Systems: See Below Constitutional: Denies: Fever, Chills, Malaise, Weakness, Fatigue, Decreased Appetite, Weight Loss HEENT: Reports: Glasses. Denies: Vision Change Respiratory: Reports: No Symptoms Cardiovascular: Reports: Blood Pressure Problem. Denies: Chest Pain, Claudication, Dyspnea on Exertion, Edema, Lightheadedness, Orthopnea, Palpitations Endocrine: Reports: Fatigue GI/Abdominal: Reports: Constipation, Melena (On firm questioning the patient reports that for the last 2 days she is appreciated dark black stools.) : Reports: Frequency, Incontinence (Both urge and stress components.) Musculoskeletal: Reports: Joint Pain Skin: Reports: No Symptoms (Knees hips low back shoulders and neck at times.) Neurological: Reports: Trouble Speaking (Trouble speaking developed today with dysarthric and somewhat garbled speech making it hard for care workers to under stand her. Symptoms started acutely at approximately 1624 hrs. today while she was getting ready for). Denies: Confusion, Dizziness, Headache, Numbness, Seizure, Syncope, Tingling Psychiatric: Reports: No Symptoms Hematologic/Lymphatic: Reports: No Symptoms Immunologic: Reports: No Symptoms ED EXAM, NEURO - Physical Exam Exam: See Below Exam Limited By: No Limitations General Appearance: Alert, WD/WN, No Apparent Distress, Other (Speech is dysarthric but is still understandable. She speaks slowly to make sure that she can get the words out. She has a few troubles with finding the right word to say i.e. mild expressive aphasia. Vital signs show temperature of 36.6 with a heart rate of 78 and sinus respiratory to 16. O2 sats were 94% on room air BP was 149/45. Patient is quite pallid in color.) Eye Exam: Bilateral Eye: Normal Inspection (No scleral icterus but bilateral blepharal pallor.), PERRL (No gaze palsy elicited.), Other (Both blepharal margins are very pallid.) Throat/Mouth: Normal Inspection, Normal Lips, Normal Teeth, Normal Gums, Normal Oropharynx, Other (Uvula is in the midline.) Head Exam: Atraumatic, Normocephalic, Other (There are no outward signs of head or facial trauma.) Neck: Supple, Non-Tender, Full Range of Motion, Other (She has a well-healed left carotid endarterectomy incision. There is a loud bruit in this area.). No: Lymphadenopathy (L), Lymphadenopathy (R) Respiratory/Chest: No Respiratory Distress, Lungs Clear, Normal Breath Sounds, No Accessory Muscle Use, Chest Non-Tender, Decreased Breath Sounds (Rest sounds are mildly diminished to both lung bases posteriorly.) Cardiovascular: Regular Rate, Rhythm, No Edema, No Gallop, No Murmur, No Rub, Other. No: Normal Peripheral Pulses GI/Abdominal: Normal Bowel Sounds (She has a well-healed midline sternotomy incision compared with previous open heart surgery.), Soft, Non-Tender, No Organomegaly, No Mass, Pelvis Stable Rectal (Female) Exam: Heme + Stool, Other (She denies ovidio melena stool dark t arry at the anus and perianal tissues. It was strongly guaiac positive.) Neurological: Alert, Normal Mood/Affect, Normal Dorsiflexion, CN II-XII Intact, Normal Plantar Flexion, Normal Reflexes, No Motor/Sensory Deficits, Oriented x 3, Other (Only neurological deficit is that of dysarthric speech.). No: Normal Gait, Abnormal Finger to Nose, Abnormal Sensation, Babinski DTR: 0: Achilles (R), Achilles (L), 1+: Bicep (R), Bicep (L), Patella (R), Patella (L) Extremities: Normal Inspection, Normal Range of Motion, Non-Tender, No Pedal Edema Psychiatric: Normal Affect, Normal Mood, Other (Not anxious or upset about her current symptoms.) Skin Exam: Warm, Dry, Intact, Normal Color, No Rash EKG INTERPRETATION EKG Date: 05/02/20 Time: 17:15 Rhythm: NSR Rate (Beats/Min): 76 [place]: Normal P-Wave: Present QRS: Other (Decreased voltage precordial leads. There is a Q wave in V1 and yair r Q wave in V2 suggestive of an old anteroseptal myocardial infarction.) ST-T: Normal QT: Normal EKG Interpretation Comments: Abnormal ECG Course - Vital Signs Last Recorded V/S: Last Vital Signs Temp 36.6 C 05/02/20 17:15 Pulse 78 05/02/20 17:15 Resp 16 05/02/20 17:15 BP 149/45 H 05/02/20 17:15 Pulse Ox - Orders/Labs/Meds Orders: Active Orders 24 hr Category Date Time Status EKG 12 Lead [EKG Documentation Completion] [RC] ROUTINE Care 05/02/20 17:14 Active CORONAVIRUS COVID-19 PCR PHL Stat Lab 05/02/20 18:42 Ordered PACKED CELLS [RED BLOOD CELLS LP] [BBK] Stat Lab 05/02/20 18:32 Ordered TYPE AND SCREEN [BBK] Stat Lab 05/02/20 18:32 Ordered Sodium Chloride 0.9% [Normal Saline] 1,000 ml Med 05/02/20 17:30 Active IV ASDIRECTED Transfuse PRBC [Transfuse Red Blood Cells] [COMM] Oth 05/02/20 18:36 Ordered Routine Medication Orders Sodium Chloride (Normal Saline) 1,000 mls @ 100 mls/hr IV ASDIRECTED CUATE Last Admin: 05/02/20 17:36 Dose: 100 mls/hr Documented by: BOLA Labs: Laboratory Tests 05/02/20 05/02/20 05/02/20 Range/Units 17:20 17:25 17:25 WBC 8.96 (3.98-10.04) K/mm3 RBC 2.63 L (3.98-5.22) M/mm3 Hgb 6.9 L* D (11.2-15.7) gm/dl Hct 23.6 L (34.1-44.9) % MCV 89.7 D (79.4-94.8) fl MCH 26.2 (25.6-32.2) pg MCHC 29.2 L (32.2-35.5) g/dl RDW Std Deviation 49.1 H (36.4-46.3) fL Plt Count 347 D (182-369) K/mm3 MPV 10.1 (9.4-12.3) fl Neut % (Auto) 71.1 (34.0-71.1) % Lymph % (Auto) 15.7 L (19.3-51.7) % [place] % (Auto) 10.8 (4.7-12.5) % Eos % (Auto) 2.0 (0.7-5.8) Baso % (Auto) 0.3 (0.1-1.2) % Neut # (Auto) 6.36 H (1.56-6.13) K/mm3 Lymph # (Auto) 1.41 (1.18-3.74) K/mm3 [place] # (Auto) 0.97 H (0.24-0.36) K/mm3 Eos # (Auto) 0.18 (0.04-0.36) K/mm3 Baso # (Auto) 0.03 (0.01-0.08) K/mm3 Manual Slide Review Abnormal smear PT (9.7-12.0) SECONDS INR APTT (22-31) SECONDS Sodium 138 (136-145) mEq/L Potassium 5.0 (3.5-5.1) mEq/L Chloride 104 (98-107) mEq/L Carbon Dioxide 23 (21-32) mEq/L Anion Gap 16.0 H (5-15) BUN 50 H (7-18) mg/dL Creatinine 1.7 H (0.55-1.02) mg/dL Est Cr Clr Drug Dosing 24.65 mL/min Estimated GFR (MDRD) 30 (>60) mL/min BUN/Creatinine Ratio 29.4 H (14-18) Glucose 153 H (80-115) mg/dL POC Glucose 146 H (80-115) mg/dL Calcium 8.8 (8.5-10.1) mg/dL Magnesium 2.4 (1.8-2.4) mg/dl Total Bilirubin 0.2 (0.2-1.0) mg/dL AST 20 (15-37) U/L ALT 24 (14-59) U/L Alkaline Phosphatase 80 (46-116) U/L Troponin I < 0.017 (0.00-0.056) ng/mL C-Reactive Protein 0.7 (<1.0) mg/dL NT-Pro-B Natriuret Pep (0-125) pg/mL Total Protein 6.6 (6.4-8.2) g/dl Albumin 3.3 L (3.4-5.0) g/dl Globulin 3.3 gm/dL Albumin/Globulin Ratio 1.0 (1-2) 05/02/20 05/02/20 Range/Units 17:25 17:25 WBC (3.98-10.04) K/mm3 RBC (3.98-5.22) M/mm3 Hgb (11.2-15.7) gm/dl Hct (34.1-44.9) % MCV (79.4-94.8) fl MCH (25.6-32.2) pg MCHC (32.2-35.5) g/dl RDW Std Deviation (36.4-46.3) fL Plt Count (182-369) K/mm3 MPV (9.4-12.3) fl Neut % (Auto) (34.0-71.1) % Lymph % (Auto) (19.3-51.7) % [place] % (Auto) (4.7-12.5) % Eos % (Auto) (0.7-5.8) Baso % (Auto) (0.1-1.2) % Neut # (Auto) (1.56-6.13) K/mm3 Lymph # (Auto) (1.18-3.74) K/mm3 [place] # (Auto) (0.24-0.36) K/mm3 Eos # (Auto) (0.04-0.36) K/mm3 Baso # (Auto) (0.01-0.08) K/mm3 Manual Slide Review PT 11.4 (9.7-12.0) SECONDS INR 1.07 APTT 25 (22-31) SECONDS Sodium (136-145) mEq/L Potassium (3.5-5.1) mEq/L Chloride (98-107) mEq/L Carbon Dioxide (21-32) mEq/L Anion Gap (5-15) BUN (7-18) mg/dL Creatinine (0.55-1.02) mg/dL Est Cr Clr Drug Dosing mL/min Estimated GFR (MDRD) (>60) mL/min BUN/Creatinine Ratio (14-18) Glucose (80-115) mg/dL POC Glucose (80-115) mg/dL Calcium (8.5-10.1) mg/dL Magnesium (1.8-2.4) mg/dl Total Bilirubin (0.2-1.0) mg/dL AST (15-37) U/L ALT (14-59) U/L Alkaline Phosphatase (46-116) U/L Troponin I (0.00-0.056) ng/mL C-Reactive Protein (<1.0) mg/dL NT-Pro-B Natriuret Pep 972 H (0-125) pg/mL Total Protein (6.4-8.2) g/dl Albumin (3.4-5.0) g/dl Globulin gm/dL Albumin/Globulin Ratio (1-2) Meds: Medications Generic Name Dose Route Start Last Admin Trade Name Freq PRN Reason Stop Dose Admin Sodium Chloride 1,000 mls @ 100 mls/hr 05/02/20 17:30 05/02/20 17:36 Normal Saline IV 100 mls/hr ASDIRECTED CUATE Administration - Radiology Interpretation Free Text/Narrative:: 60-year-old female presents to the ED from local long term [facility]. She was apparently getting ready for her supper meal when she developed this are 3 and garbled speech and some degree of expressive a aphasia. This appeared to be her only neurological deficit. Time of 8 of recurrence was rated at 1624 hrs. No recent closed head injuries. Patient is on Eliquis 5 mg twice daily due to occluded left carotid artery. She has had a previous CVA and has known coronary disease. Her speech was still dysarthric when she entered the ED but still understandable and deficit was felt to be fairly mild. Stroke alert was called and she was taken immediately to the CT suite for noncontrast head CT. CT of the brain reveals moderate atrophy with prominence of the sulci. Diffuse small vessel ischemic changes appreciated both basal ganglia. There was no intracranial bleeding or mass-effect. Patient is on Eliquis 5 mg twice daily and therefore is not a candidate for thrombolytic therapy. She is a insulin- dependent diabetic type II. Her last renal function recorded in the chart was in 2018 with a GFR of only 37. CTA may be performed but it is likely that no intervention can be done. Her renal function may preclude the use of angiogram dye. She is quite pallid in color. She has blepharal pallor. I am not sure if she has chronic anemia from renal insufficiency or not. - Re-Assessments/Exams Free Text/Narrative Re-Assessment/Exam: 05/02/20 18:29 White count is 8.96. Differential is 71% neutrophils. Hemoglobin is low at 6.9. Hematocrit is 23.6. MCV is 89.7. Platelet count 347,000. The smear reveals 2+ hypochromasia. 1+ ovalocytes 1+ poikilocytes. Platelets are normal and adequate. White blood cell review reveals no bands seen. PT is 11.4 with an INR of 1.07. PTT is 25. Sodium is 138 with a potassium high normal at 5.0. Chloride 104 with a bicarb of 23. Anion gap is mildly elevated at 16.0. BUN is elevated at 50 with a creatinine of 1.7 suggesting that she is volume depleted. GFR is only 30.. Glucose is 153 and it was 146 at the bedside. Calcium is 8.8 with a magnesium of 2.4. Liver function is normal. Troponin I is less than 0.017. C-reactive protein is 0.7 total protein is 6.6 albumin fraction 3.3 05/02/20 18:37 I was able to speak with her primary care physician Dr. Mayo and indicates that all patients that enter that facility are listed as palliative care but it does not mean that they do not receive usual care such as blood transfusions. He recommended that we give her blood transfusion and then investigate where she may be suffering blood loss from. The fact that her BUN is 50 is strongly suspect to be an upper GI bleed. She will be placed on tonics 40 mg IV fluids. Then will be placed on drip at 10 mg/h for 10 hours. She has been crossmatched for 3 units of packed red blood cells and the plan would be to transfuse each unit over 3 to 4 hours. She may require Lasix in between units. Her BNP is pending. I did speak with Dr. Marquez on-call hospitalist and he agreed to admission to the [facility] surgery floor for observation status. I have discussed the options with the patient and his [facility]. She appears to be compos mentis. It needs to be determined whether or not the patient is a candidate for upper GI endoscopy to discern possible source of upper GI bleed. Also needs to be discerned whether or not she needs to continue with the Eliquis. 05/02/20 19:00 . BNP is elevated at 972. She will therefore require Lasix in between units of packed red cells to prevent exacerbation of congestive heart failure. Departure - Departure Time of Disposition: 19:01 Disposition: Refer to Observation Condition: Fair Clinical Impression: Cerebrovascular accident, Expressive aphasia, Upper gastrointestinal bleeding Anemia Qualifiers: Anemia type: unspecified type Qualified Code(s): D64.9 - Anemia, unspecified - Discharge Information *PRESCRIPTION DRUG MONITORING PROGRAM REVIEWED*: Not Applicable *COPY OF PRESCRIPTION DRUG MONITORING REPORT IN PATIENT AXEL: Not Applicable Instructions: Anemia, Upper Gastrointestinal Bleeding Referrals: Estrada Marinelli MD [Primary Care Provider] - Forms: ED Department Discharge Sepsis Event Note (ED) - Focused Exam Vital Signs: Vital Signs Temp Pulse Resp BP 05/02/20 17:15 36.6 C 78 16 149/45 H - My Orders Last 24 Hours: My Active Orders 05/02/20 17:14 EKG 12 Lead [EKG Documentation Completion] [RC] ROUTINE 05/02/20 17:30 Sodium Chloride 0.9% [Normal Saline] 1,000 ml IV ASDIRECTED 05/02/20 18:32 PACKED CELLS [RED BLOOD CELLS LP] [BBK] Stat TYPE AND SCREEN [BBK] Stat 05/02/20 18:36 Transfuse PRBC [Transfuse Red Blood Cells] [COMM] Routine 05/02/20 18:42 CORONAVIRUS COVID-19 PCR PHL Stat - Assessment/Plan Last 24 Hours: My Active Orders 05/02/20 17:14 EKG 12 Lead [EKG Documentation Completion] [RC] ROUTINE 05/02/20 17:30 Sodium Chloride 0.9% [Normal Saline] 1,000 ml IV ASDIRECTED 05/02/20 18:32 PACKED CELLS [RED BLOOD CELLS LP] [BBK] Stat TYPE AND SCREEN [BBK] Stat 05/02/20 18:36 Transfuse PRBC [Transfuse Red Blood Cells] [COMM] Routine 05/02/20 18:42 CORONAVIRUS COVID-19 PCR PHL Stat
[2020-05-02] MEDS ORDERED: Sodium Chloride 0.9% 1,000 ML IV SCH ×2 (17:30→22:00)
--- NOTE | 2020-05-02 17:46 | CT ---
Head CT Technique: Multiple axial sections through the brain were obtained. Intravenous contrast was not utilized. Comparison: Prior head CT study of 12/10/18. Findings: Ventricles along with basal cisterns and sulci over the convexities are mildly prominent. Old infarct is noted within the right frontal region. Mild diminished density is noted within portions of the periventricular white matter compatible with small vessel ischemic demyelination change. Old lacunar infarcts are noted within the basal ganglia. No evidence of intracranial hemorrhage. Nothing acute is appreciated. Bone window settings were reviewed. Visualized mastoid sinuses and paranasal sinuses show nothing acute. No acute calvarial abnormality is appreciated. Atherosclerotic calcification is seen within the carotid siphon and within the vertebral vessels. Impression: 1. Senescent change as noted above. 2. No significant change from previous study is seen. 3. No acute intracranial abnormality is appreciated. Note: Given the patient's symptoms, consider MRI to further evaluate.
[2020-05-02] MEDS ORDERED: Furosemide 40 MG/4 ML VIAL IVPUSH ONE (19:00)
[2020-05-02] MEDS ORDERED: Pantoprazole 40 MG Vial IVPUSH ONE (19:02)
[2020-05-02] MEDS: Pantoprazole 80 MG in Sodium Chloride 0.9% 100 ML IV SCH (20:01)
[2020-05-02] MEDS ORDERED: 50% Dextrose in Water 50 ML Syringe IVPUSH PRN (21:23)
--- NOTE | 2020-05-02 21:25 | PCM.HP.2 ---
H&P History of Present Illness - General Date of Service: 05/02/20 Admit Problem/Dx: Admission Diagnosis/Problem Admission Diagnosis/Problem CVA, Cerebrovascular accident - History of Present Illness Initial Comments - Free Text/Narative: 60-year-old female who resides at [facility] secondary to a history of stroke presented to the emergency department via EMS after having incoherent speech. Apparently around suppertime at 1624 hrs. she started having "garbled speech" and people had a difficulty understanding her. Per emergency department notes patient recognizes her speech was not coming out correctly. When I asked her she said she was sent to the emergency department because they thought she was having a heart attack. Patient has some dysarthria and expressive aphasia from a previous CVA occurring after her carotid endarterectomy in 2018. She had a stenotic left carotid artery with a carotid endarterectomy. According to records patient denied any visual changes and was able to ambulate. Stroke alert was called in the emergency department and CT of the head showed no new bleed. Bedside blood sugar was 146 and she is a known diabetic on insulin. Patient was found to be severely anemic with a hemoglobin of 6.9 and when questioning her further she states that she has had melanotic stools for the last 2 days, last one being around 1400 hrs. today. Patient is on Eliquis 5 mg twice a day secondary to left carotid artery occlusion. Patient's EKG in the emergency department showed normal sinus rhythm with a ventricular rate of 76 bpm. Q waves in lead V1 and V2 suggesting previous anteroseptal infarct. - Related Data Allergies/Adverse Reactions: Allergies Allergy/AdvReac Type Severity Reaction Status Date / Time adhesive tape Allergy Rash Verified 05/02/20 23:13 simvastatin [From Zocor] AdvReac Muscle Verified 05/02/20 23:13 Aches Konmjev-Hou-Koc Reductase AdvReac Muscle Verified 05/02/20 23:13 Inhibitor Aches Home Medications: Home Meds Apixaban [Eliquis] 5 mg PO BID 07/21/18 [History] Nitroglycerin [Nitrostat] 0.4 mg PO ASDIRECTED PRN 07/21/18 [History] Pravastatin [Pravachol] 20 mg PO QPM 07/21/18 [History] amLODIPine Besylate [Amlodipine Besylate] 5 mg PO DAILY 07/21/18 [History] carvediloL [Carvedilol] 25 mg PO BID 07/21/18 [History] Acetaminophen [Tylenol Arthritis] 650 mg PO QID 05/02/20 [History] Acetaminophen [Tylenol] 650 mg PO BID PRN 05/02/20 [History] Escitalopram Oxalate [Lexapro] 20 mg PO DAILY 05/02/20 [History] Insulin Aspart [NovoLOG] 6 unit SUBCUT TID 05/02/20 [History] Insulin Glargine,Hum.Rec.Anlog [Lantus Solostar] 4 units SUBCUT BEDTIME 05/02/20 [History] Insulin Glargine,Hum.Rec.Anlog [Lantus Solostar] 10 unit SUBCUT QAM 05/02/20 [History] Solifenacin Succinate 10 mg PO QPM 05/02/20 [History] lisinopriL [Prinivil] 20 mg PO DAILY 05/02/20 [History] traMADol [Ultram] 50 mg PO TID 05/02/20 [History] Past Medical History HEENT History: Reports: Cataract, Impaired Vision Cardiovascular History: Reports: High Cholesterol, Hypertension, Other (See Below) (ASCVD) Other Cardiovascular History: Left Carotid Artery is occluded. Respiratory History: Reports: None Gastrointestinal History: Reports: Chronic Diarrhea, GERD Genitourinary History: Reports: Other (See Below) (renal disease stage 3) Other Genitourinary History: states kidneys are failing STATISTICIAN MATHEMATICAL History: Reports: None Musculoskeletal History: Reports: Arthritis, Other (See Below) (pt states has a stiff neck today, full ROM noted) Neurological History: Reports: CVA (2018, no residual noted identified to have a complete occlusion of her left carotid artery. She has had surgery in this are a as well.) Psychiatric History: Reports: Anxiety, Depression, Mood Swings, Other (See Below) Other Psychiatric History: "amnesia, memory deficit." Endocrine/Metabolic History: Reports: Diabetes, Type I, Diabetes, Type II Hematologic History: Reports: Iron Deficiency Immunologic History: Reports: None Oncologic (Cancer) History: Reports: None - Infectious Disease History Infectious Disease History: Reports: Chicken Pox, Measles, Mumps - Past Surgical History HEENT Surgical History: Reports: Cataract Surgery GI Surgical History: Reports: Bariatric Procedure, Cholecystectomy, Other (See Below) Dermatological Surgical History: Reports: Plastic Surgical Reconstruction/Repair (pt states surgeries to remove skin after gastric bypass, arms, abdomen, knees) Social & Family History - Family History Family Medical History: Noncontributory - Tobacco Use Smoking Status *Q: Former Smoker Used Tobacco, but Quit: Yes Month/Year Tobacco Last Used: 1996 - Caffeine Use Caffeine Use: Reports: Coffee - Recreational Drug Use Recreational Drug Use: No - Living Situation & Occupation Living situation: Reports: Single, Extended Care Facility (Currently residing at [facility]) Occupation: Employed H&P Review of Systems - Review of Systems: Review Of Systems: Comprehensive ROS is negative, except as noted in HPI. Exam - Exam Exam: See Below - Vital Signs Vital Signs: Last Vital Signs Temp 98.0 F 05/02/20 20:20 Pulse 76 05/02/20 20:49 Resp 14 05/02/20 20:49 BP 157/54 H 05/02/20 20:49 Pulse Ox 99 05/02/20 20:49 Weight: 80.513 kg - Exam General: Alert, Oriented, 4 HEENT: Conjunctiva Clear, Hearing Intact, Mucosa Moist & [place] Neck: Supple, Trachea Midline, 2 Lungs: Clear to Auscultation, Normal Respiratory Effort Cardiovascular: Regular Rate, Regular Rhythm GI/Abdominal Exam: Normal Bowel Sounds, Soft, Non-Tender, No Organomegaly, No Distention, No Abnormal Bruit, No Mass Back Exam: Normal Inspection, Full Range of Motion, NT Extremities: Normal Inspection, Normal Range of Motion, Non-Tender, No Pedal Edema, Normal Capillary Refill Neuro Extensive - Mental Status: Alert, Normal Mood/Affect Psychiatric: Alert, Normal Affect, Normal Mood - Patient Data Lab Results Last 24 hrs: Laboratory Results - last 24 hr 05/02/20 05/02/20 05/02/20 Range/Units 17:20 17:25 17:25 WBC 8.96 (3.98-10.04) K/mm3 RBC 2.63 L (3.98-5.22) M/mm3 Hgb 6.9 L* D (11.2-15.7) gm/dl Hct 23.6 L (34.1-44.9) % MCV 89.7 D (79.4-94.8) fl MCH 26.2 (25.6-32.2) pg MCHC 29.2 L (32.2-35.5) g/dl RDW Std Deviation 49.1 H (36.4-46.3) fL Plt Count 347 D (182-369) K/mm3 MPV 10.1 (9.4-12.3) fl Neut % (Auto) 71.1 (34.0-71.1) % Lymph % (Auto) 15.7 L (19.3-51.7) % [place] % (Auto) 10.8 (4.7-12.5) % Eos % (Auto) 2.0 (0.7-5.8) Baso % (Auto) 0.3 (0.1-1.2) % Neut # (Auto) 6.36 H (1.56-6.13) K/mm3 Lymph # (Auto) 1.41 (1.18-3.74) K/mm3 [place] # (Auto) 0.97 H (0.24-0.36) K/mm3 Eos # (Auto) 0.18 (0.04-0.36) K/mm3 Baso # (Auto) 0.03 (0.01-0.08) K/mm3 Manual Slide Review Abnormal smear PT (9.7-12.0) SECONDS INR APTT (22-31) SECONDS Sodium 138 (136-145) mEq/L Potassium 5.0 (3.5-5.1) mEq/L Chloride 104 (98-107) mEq/L Carbon Dioxide 23 (21-32) mEq/L Anion Gap 16.0 H (5-15) BUN 50 H (7-18) mg/dL Creatinine 1.7 H (0.55-1.02) mg/dL Est Cr Clr Drug Dosing 24.65 mL/min Estimated GFR (MDRD) 30 (>60) mL/min BUN/Creatinine Ratio 29.4 H (14-18) Glucose 153 H (80-115) mg/dL POC Glucose 146 H (80-115) mg/dL Calcium 8.8 (8.5-10.1) mg/dL Magnesium 2.4 (1.8-2.4) mg/dl Total Bilirubin 0.2 (0.2-1.0) mg/dL AST 20 (15-37) U/L ALT 24 (14-59) U/L Alkaline Phosphatase 80 (46-116) U/L Troponin I < 0.017 (0.00-0.056) ng/mL C-Reactive Protein 0.7 (<1.0) mg/dL NT-Pro-B Natriuret Pep (0-125) pg/mL Total Protein 6.6 (6.4-8.2) g/dl Albumin 3.3 L (3.4-5.0) g/dl Globulin 3.3 gm/dL Albumin/Globulin Ratio 1.0 (1-2) COVID-19 (SARAH) (NEGATIVE) Blood Type Gel Antibody Screen Crossmatch 05/02/20 05/02/20 05/02/20 Range/Units 17:25 17:25 17:25 WBC (3.98-10.04) K/mm3 RBC (3.98-5.22) M/mm3 Hgb (11.2-15.7) gm/dl Hct (34.1-44.9) % MCV (79.4-94.8) fl MCH (25.6-32.2) pg MCHC (32.2-35.5) g/dl RDW Std Deviation (36.4-46.3) fL Plt Count (182-369) K/mm3 MPV (9.4-12.3) fl Neut % (Auto) (34.0-71.1) % Lymph % (Auto) (19.3-51.7) % [place] % (Auto) (4.7-12.5) % Eos % (Auto) (0.7-5.8) Baso % (Auto) (0.1-1.2) % Neut # (Auto) (1.56-6.13) K/mm3 Lymph # (Auto) (1.18-3.74) K/mm3 [place] # (Auto) (0.24-0.36) K/mm3 Eos # (Auto) (0.04-0.36) K/mm3 Baso # (Auto) (0.01-0.08) K/mm3 Manual Slide Review PT 11.4 (9.7-12.0) SECONDS INR 1.07 APTT 25 (22-31) SECONDS Sodium (136-145) mEq/L Potassium (3.5-5.1) mEq/L Chloride (98-107) mEq/L Carbon Dioxide (21-32) mEq/L Anion Gap (5-15) BUN (7-18) mg/dL Creatinine (0.55-1.02) mg/dL Est Cr Clr Drug Dosing mL/min Estimated GFR (MDRD) (>60) mL/min BUN/Creatinine Ratio (14-18) Glucose (80-115) mg/dL POC Glucose (80-115) mg/dL Calcium (8.5-10.1) mg/dL Magnesium (1.8-2.4) mg/dl Total Bilirubin (0.2-1.0) mg/dL AST (15-37) U/L ALT (14-59) U/L Alkaline Phosphatase (46-116) U/L Troponin I (0.00-0.056) ng/mL C-Reactive Protein (<1.0) mg/dL NT-Pro-B Natriuret Pep 972 H (0-125) pg/mL Total Protein (6.4-8.2) g/dl Albumin (3.4-5.0) g/dl Globulin gm/dL Albumin/Globulin Ratio (1-2) COVID-19 (SARAH) (NEGATIVE) Blood Type O POSITIVE Gel Antibody Screen Negative Crossmatch See Detail 05/02/20 Range/Units 18:50 WBC (3.98-10.04) K/mm3 RBC (3.98-5.22) M/mm3 Hgb (11.2-15.7) gm/dl Hct (34.1-44.9) % MCV (79.4-94.8) fl MCH (25.6-32.2) pg MCHC (32.2-35.5) g/dl RDW Std Deviation (36.4-46.3) fL Plt Count (182-369) K/mm3 MPV (9.4-12.3) fl Neut % (Auto) (34.0-71.1) % Lymph % (Auto) (19.3-51.7) % [place] % (Auto) (4.7-12.5) % Eos % (Auto) (0.7-5.8) Baso % (Auto) (0.1-1.2) % Neut # (Auto) (1.56-6.13) K/mm3 Lymph # (Auto) (1.18-3.74) K/mm3 [place] # (Auto) (0.24-0.36) K/mm3 Eos # (Auto) (0.04-0.36) K/mm3 Baso # (Auto) (0.01-0.08) K/mm3 Manual Slide Review PT (9.7-12.0) SECONDS INR APTT (22-31) SECONDS Sodium (136-145) mEq/L Potassium (3.5-5.1) mEq/L Chloride (98-107) mEq/L Carbon Dioxide (21-32) mEq/L Anion Gap (5-15) BUN (7-18) mg/dL Creatinine (0.55-1.02) mg/dL Est Cr Clr Drug Dosing mL/min Estimated GFR (MDRD) (>60) mL/min BUN/Creatinine Ratio (14-18) Glucose (80-115) mg/dL POC Glucose (80-115) mg/dL Calcium (8.5-10.1) mg/dL Magnesium (1.8-2.4) mg/dl Total Bilirubin (0.2-1.0) mg/dL AST (15-37) U/L ALT (14-59) U/L Alkaline Phosphatase (46-116) U/L Troponin I (0.00-0.056) ng/mL C-Reactive Protein (<1.0) mg/dL NT-Pro-B Natriuret Pep (0-125) pg/mL Total Protein (6.4-8.2) g/dl Albumin (3.4-5.0) g/dl Globulin gm/dL Albumin/Globulin Ratio (1-2) COVID-19 (SARAH) Negative (NEGATIVE) Blood Type Gel Antibody Screen Crossmatch Result Diagrams: 05/03/20 05:30 05/03/20 05:30 Sepsis Event Note - Evaluation Sepsis Screening Result: No Definite Risk - Focused Exam Vital Signs: Vital Signs Temp Temp Pulse Pulse Resp BP BP 05/02/20 20:49 76 14 157/54 H 05/02/20 20:20 98.0 F 77 17 147/53 H 05/02/20 20:05 98.0 F 75 17 161/67 H 05/02/20 17:15 97.9 F 78 16 149/45 H Pulse Ox 08/11/20 20:49 99 05/02/20 20:20 05/02/20 20:05 05/02/20 17:15 - Problem List (1) Anemia SNOMED Code(s): 410607066 ICD Code: D64.9 - ANEMIA, UNSPECIFIED Status: Acute Priority: High Current Visit: Yes Qualifiers: Anemia type: unspecified type Qualified Code(s): D64.9 - Anemia, unspecified (2) Cerebrovascular accident SNOMED Code(s): 635782686 ICD Code: I63.9 - CEREBRAL INFARCTION, UNSPECIFIED Status: Acute Current Visit: Yes (3) Upper gastrointestinal bleeding SNOMED Code(s): 59945572 ICD Code: K92.2 - GASTROINTESTINAL HEMORRHAGE, UNSPECIFIED Status: Acute Current Visit: Yes Problem List Initiated/Reviewed/Updated: Yes Orders Last 24hrs: Active Orders 24 hr Category Date Time Status Admission Status [Patient Status] [ADT] Routine ADT 05/02/20 19:04 Active Antiembolic Devices [RC] PER UNIT ROUTINE Care 05/02/20 21:23 Ordered Blood Glucose Check, Bedside [RC] QIDACANDBED Care 05/02/20 21:23 Ordered EKG 12 Lead [EKG Documentation Completion] [RC] ROUTINE Care 05/02/20 17:14 Active Oxygen Therapy [RC] PRN Care 05/02/20 21:20 Ordered Up With Assistance [RC] ASDIRECTED Care 05/02/20 21:19 Ordered VTE/DVT Education [RC] PER UNIT ROUTINE Care 05/02/20 21:20 Ordered Vital Signs [RC] ASDIRECTED Care 05/02/20 21:19 Ordered Clear Liquid Diet [DIET] Diet 05/03/20 Breakfast Ordered CBC WITH AUTO DIFF [HEME] AM Lab 05/03/20 05:11 Ordered COMPREHENSIVE METABOLIC PN,CMP [CHEM] AM Lab 05/03/20 05:11 Ordered Guaiac [OCCULT BLOOD DIAGNOSTIC] [OP] Stat Lab 05/02/20 19:03 Ordered MAGNESIUM [CHEM] AM Lab 05/03/20 05:11 Ordered PACKED CELLS [RED BLOOD CELLS LP] [BBK] Stat Lab 05/02/20 17:25 Results TYPE AND SCREEN [BBK] Stat Lab 05/02/20 17:25 Results Dextrose 50% in Water Med 08/11/20 21:23 Ordered 50 ml IVPUSH ASDIRECTED PRN Insulin Lispro [HumaLOG] Med 05/02/20 22:00 Ordered See Protocol SUBCUT QIDACANDBED Pantoprazole [ProTONIX IV] Med 05/03/20 09:00 Ordered 40 mg IV Q12HR Pantoprazole [ProTONIX IV] 80 mg Med 05/02/20 19:15 Active Sodium Chloride 0.9% [Normal Saline] 100 ml IV Q10H Sodium Chloride 0.9% [Normal Saline] 1,000 ml Med 05/02/20 17:30 Active IV ASDIRECTED Sequential Compression Device [OM.PC] Per Unit Routine Ot 05/02/20 21:20 Ordered Transfuse PRBC [Transfuse Red Blood Cells] [COMM] Ot 05/02/20 18:36 Ordered Routine Resuscitation Status Routine Resus Stat 05/02/20 21:19 Ordered Medication Orders Sodium Chloride (Normal Saline) 1,000 mls @ 100 mls/hr IV ASDIRECTED [facility] Last Admin: 05/02/20 17:36 Dose: 100 mls/hr Documented by: BOLA Pantoprazole Sodium 80 mg/ (Sodium Chloride) 100 mls @ 10 mls/hr IV Q10H [facility] Last Admin: 05/02/20 20:01 Dose: 10 mls/hr Documented by: [place] Pantoprazole Sodium (Protonix Iv) 40 mg IV Q12HR [facility] Assessment/Plan Comment:: Assessment * Likely upper GI bleed * Hemoglobin on presentation of 6.9 * 2 days of melanotic stools * On Eliquis 5 mg twice daily for stroke prevention * CT of the brain showed moderate atrophy with prominence of the sulci. Diffuse small vessel ischemic changes. No intracranial bleeding or mass- effect. * Started on 1 unit packed red blood cell in the emergency department * Possible CVA * Patient has had significant improvement in her dysarthria with starting of packed red blood cells and volume expansion * History of CVA in the past increasing her risk for recurrence. * Dysarthria likely secondary to severe blood loss * Acute on chronic renal insufficiency * Initial creatinine 1.7 * GFR 30 BUN * Elevated at 50, but likely higher secondary to GI bleeding * Insulin-dependent diabetic * Home medications include: Lantus 4 units in the evening and 10 units in the morning, NovoLog 6 units 3 times daily * Unknown hemoglobin A1c * Hypertension * Home meds include carvedilol 25 mg twice daily, amlodipine 5 mg daily, and lisinopril 20 mg daily * Hyperlipidemia * Home meds include Pravachol 20 mg daily * Carotid artery stenosis with history of CEA on left * Patient is on Eliquis 5 mg twice daily Plan * Admit to medical floor on telemetry * Give 2 units packed red blood cells * Continue IV fluids at 50 mL an hour * Stop Eliquis * Clear liquid diet * Recheck CBC, CMP, and magnesium in the morning * Check hemoglobin A1c * Sliding scale insulin and decrease long-acting insulin by just over third * Consider consult of surgery in the morning for possible EGD * Protonix drip * Continue to follow H&H * CODE STATUS: DNR/DNIdiscussed with patient * VTE prophylaxis with SCDs. Patient has active GI bleed, therefore chemoprophylaxis is contraindicated * Length of stay likely 2 to 3 days. - Mortality Measure Prognosis:: Good
[2020-05-02] MEDS ORDERED: Nitroglycerin 0.4 MG Tab.SL SL PRN (22:21)
[2020-05-02] MEDS: Insulin Lispro 100 Units/ML 3 ML Vial SUBCUT SCH (22:26)
[2020-05-02] MEDS ORDERED: Sodium Chloride 0.9% 250 ML ONE (23:25)
[2020-05-03] MEDS: Carvedilol 12.5 MG Tab PO SCH ×2 (06:31→16:57)
[2020-05-03] MEDS: Acetaminophen 325 MG Tab PO PRN ×3 (06:33→20:30)
[2020-05-03] MEDS: Insulin Lispro 100 Units/ML 3 ML Vial SUBCUT SCH ×4 (06:38→22:54)
[2020-05-03] MEDS: Pantoprazole 80 MG in Sodium Chloride 0.9% 100 ML IV SCH ×2 (07:54→16:54)
[2020-05-03] MEDS: Insulin Glarg,Human.Rec.Analog 100 Unit/ML SUBCUT SCH (08:49)
[2020-05-03] MEDS: amLODIPine 10 MG Tab PO SCH (08:50)
[2020-05-03] MEDS: Citalopram 20 MG Tab PO SCH (08:51)
[2020-05-03] MEDS ORDERED: Pantoprazole 40 MG Vial IV SCH (09:00)
[2020-05-03] MEDS ORDERED: ESCITALOPRAM OXALATE 20 MG PO SCH (09:00)
--- NOTE | 2020-05-03 12:01 | PCM.PN ---
- General Info Date of Service: 05/03/20 Admission Dx/Problem (Free Text): Admission Diagnosis/Problem Admission Diagnosis/Problem CVA, Cerebrovascular accident Subjective Update: Patient states she is feeling much better this morning. She has more energy, less fatigue, and she states her cheeks are pink. She received 2 units packed red blood cells overnight. Appetite is good, she is on a clear liquid diet. No further melanotic stools since admission. Functional Status: Reports: Pain Controlled - Review of Systems General: Reports: No Symptoms HEENT: Reports: No Symptoms Pulmonary: Reports: No Symptoms Cardiovascular: Reports: No Symptoms Gastrointestinal: Reports: No Symptoms - Patient Data Vitals - Most Recent: Last Vital Signs Temp 98.1 F 05/03/20 07:19 Pulse 77 05/03/20 07:19 Resp 20 05/03/20 07:19 BP 128/66 05/03/20 08:50 Pulse Ox 100 05/03/20 07:19 Weight - Most Recent: 80.513 kg I&O - Last 24 Hours: Intake & Output 05/02/20 05/03/20 05/03/20 22:59 06:59 14:59 Intake Total 0 1274 320 Balance 0 1274 320 Lab Results Last 24 Hours: Laboratory Results - last 24 hr 05/02/20 05/02/20 05/02/20 Range/Units 17:20 17:25 17:25 WBC 8.96 (3.98-10.04) K/mm3 RBC 2.63 L (3.98-5.22) M/mm3 Hgb 6.9 L* D (11.2-15.7) gm/dl Hct 23.6 L (34.1-44.9) % MCV 89.7 D (79.4-94.8) fl MCH 26.2 (25.6-32.2) pg MCHC 29.2 L (32.2-35.5) g/dl RDW Std Deviation 49.1 H (36.4-46.3) fL Plt Count 347 D (182-369) K/mm3 MPV 10.1 (9.4-12.3) fl Neut % (Auto) 71.1 (34.0-71.1) % Lymph % (Auto) 15.7 L (19.3-51.7) % Dundy % (Auto) 10.8 (4.7-12.5) % Eos % (Auto) 2.0 (0.7-5.8) Baso % (Auto) 0.3 (0.1-1.2) % Neut # (Auto) 6.36 H (1.56-6.13) K/mm3 Lymph # (Auto) 1.41 (1.18-3.74) K/mm3 Dundy # (Auto) 0.97 H (0.24-0.36) K/mm3 Eos # (Auto) 0.18 (0.04-0.36) K/mm3 Baso # (Auto) 0.03 (0.01-0.08) K/mm3 Manual Slide Review Abnormal smear PT (9.7-12.0) SECONDS INR APTT (22-31) SECONDS Sodium 138 (136-145) mEq/L Potassium 5.0 (3.5-5.1) mEq/L Chloride 104 (98-107) mEq/L Carbon Dioxide 23 (21-32) mEq/L Anion Gap 16.0 H (5-15) BUN 50 H (7-18) mg/dL Creatinine 1.7 H (0.55-1.02) mg/dL Est Cr Clr Drug Dosing 24.65 mL/min Estimated GFR (MDRD) 30 (>60) mL/min BUN/Creatinine Ratio 29.4 H (14-18) Glucose 153 H (80-115) mg/dL POC Glucose 146 H (80-115) mg/dL Hemoglobin A1c (4.50-6.20) % Calcium 8.8 (8.5-10.1) mg/dL Magnesium 2.4 (1.8-2.4) mg/dl Total Bilirubin 0.2 (0.2-1.0) mg/dL AST 20 (15-37) U/L ALT 24 (14-59) U/L Alkaline Phosphatase 80 (46-116) U/L Troponin I < 0.017 (0.00-0.056) ng/mL C-Reactive Protein 0.7 (<1.0) mg/dL NT-Pro-B Natriuret Pep (0-125) pg/mL Total Protein 6.6 (6.4-8.2) g/dl Albumin 3.3 L (3.4-5.0) g/dl Globulin 3.3 gm/dL Albumin/Globulin Ratio 1.0 (1-2) Triglycerides (<150) mg/dL Cholesterol (<200) mg/dL LDL Cholesterol Direct (<100) mg/dL HDL Cholesterol (40-59) mg/dL TSH 3rd Generation (0.358-3.74) uIU/mL COVID-19 (SARAH) (NEGATIVE) MRSA (PCR) Blood Type Gel Antibody Screen Crossmatch 05/02/20 05/02/20 05/02/20 Range/Units 17:25 17:25 17:25 WBC (3.98-10.04) K/mm3 RBC (3.98-5.22) M/mm3 Hgb (11.2-15.7) gm/dl Hct (34.1-44.9) % MCV (79.4-94.8) fl MCH (25.6-32.2) pg MCHC (32.2-35.5) g/dl RDW Std Deviation (36.4-46.3) fL Plt Count (182-369) K/mm3 MPV (9.4-12.3) fl Neut % (Auto) (34.0-71.1) % Lymph % (Auto) (19.3-51.7) % Dundy % (Auto) (4.7-12.5) % Eos % (Auto) (0.7-5.8) Baso % (Auto) (0.1-1.2) % Neut # (Auto) (1.56-6.13) K/mm3 Lymph # (Auto) (1.18-3.74) K/mm3 Dundy # (Auto) (0.24-0.36) K/mm3 Eos # (Auto) (0.04-0.36) K/mm3 Baso # (Auto) (0.01-0.08) K/mm3 Manual Slide Review PT 11.4 (9.7-12.0) SECONDS INR 1.07 APTT 25 (22-31) SECONDS Sodium (136-145) mEq/L Potassium (3.5-5.1) mEq/L Chloride (98-107) mEq/L Carbon Dioxide (21-32) mEq/L Anion Gap (5-15) BUN (7-18) mg/dL Creatinine (0.55-1.02) mg/dL Est Cr Clr Drug Dosing mL/min Estimated GFR (MDRD) (>60) mL/min BUN/Creatinine Ratio (14-18) Glucose (80-115) mg/dL POC Glucose (80-115) mg/dL Hemoglobin A1c (4.50-6.20) % Calcium (8.5-10.1) mg/dL Magnesium (1.8-2.4) mg/dl Total Bilirubin (0.2-1.0) mg/dL AST (15-37) U/L ALT (14-59) U/L Alkaline Phosphatase (46-116) U/L Troponin I (0.00-0.056) ng/mL C-Reactive Protein (<1.0) mg/dL NT-Pro-B Natriuret Pep 972 H (0-125) pg/mL Total Protein (6.4-8.2) g/dl Albumin (3.4-5.0) g/dl Globulin gm/dL Albumin/Globulin Ratio (1-2) Triglycerides (<150) mg/dL Cholesterol (<200) mg/dL LDL Cholesterol Direct (<100) mg/dL HDL Cholesterol (40-59) mg/dL TSH 3rd Generation (0.358-3.74) uIU/mL COVID-19 (SARAH) (NEGATIVE) MRSA (PCR) Blood Type O POSITIVE Gel Antibody Screen Negative Crossmatch See Detail 05/02/20 05/02/20 05/02/20 Range/Units 18:50 22:15 22:23 WBC (3.98-10.04) K/mm3 RBC (3.98-5.22) M/mm3 Hgb (11.2-15.7) gm/dl Hct (34.1-44.9) % MCV (79.4-94.8) fl MCH (25.6-32.2) pg MCHC (32.2-35.5) g/dl RDW Std Deviation (36.4-46.3) fL Plt Count (182-369) K/mm3 MPV (9.4-12.3) fl Neut % (Auto) (34.0-71.1) % Lymph % (Auto) (19.3-51.7) % Dundy % (Auto) (4.7-12.5) % Eos % (Auto) (0.7-5.8) Baso % (Auto) (0.1-1.2) % Neut # (Auto) (1.56-6.13) K/mm3 Lymph # (Auto) (1.18-3.74) K/mm3 Dundy # (Auto) (0.24-0.36) K/mm3 Eos # (Auto) (0.04-0.36) K/mm3 Baso # (Auto) (0.01-0.08) K/mm3 Manual Slide Review PT (9.7-12.0) SECONDS INR APTT (22-31) SECONDS Sodium (136-145) mEq/L Potassium (3.5-5.1) mEq/L Chloride (98-107) mEq/L Carbon Dioxide (21-32) mEq/L Anion Gap (5-15) BUN (7-18) mg/dL Creatinine (0.55-1.02) mg/dL Est Cr Clr Drug Dosing mL/min Estimated GFR (MDRD) (>60) mL/min BUN/Creatinine Ratio (14-18) Glucose (80-115) mg/dL POC Glucose 140 H (80-115) mg/dL Hemoglobin A1c (4.50-6.20) % Calcium (8.5-10.1) mg/dL Magnesium (1.8-2.4) mg/dl Total Bilirubin (0.2-1.0) mg/dL AST (15-37) U/L ALT (14-59) U/L Alkaline Phosphatase (46-116) U/L Troponin I (0.00-0.056) ng/mL C-Reactive Protein (<1.0) mg/dL NT-Pro-B Natriuret Pep (0-125) pg/mL Total Protein (6.4-8.2) g/dl Albumin (3.4-5.0) g/dl Globulin gm/dL Albumin/Globulin Ratio (1-2) Triglycerides (<150) mg/dL Cholesterol (<200) mg/dL LDL Cholesterol Direct (<100) mg/dL HDL Cholesterol (40-59) mg/dL TSH 3rd Generation (0.358-3.74) uIU/mL COVID-19 (SARAH) Negative (NEGATIVE) MRSA (PCR) Negative Blood Type Gel Antibody Screen Crossmatch 05/03/20 05/03/20 05/03/20 Range/Units 05:30 05:30 05:30 WBC 9.18 (3.98-10.04) K/mm3 RBC 3.81 L (3.98-5.22) M/mm3 Hgb 10.4 L D (11.2-15.7) gm/dl Hct 33.3 L (34.1-44.9) % MCV 87.4 (79.4-94.8) fl MCH 27.3 (25.6-32.2) pg MCHC 31.2 L (32.2-35.5) g/dl RDW Std Deviation 47.9 H (36.4-46.3) fL Plt Count 326 (182-369) K/mm3 MPV 10.4 (9.4-12.3) fl Neut % (Auto) 72.9 H (34.0-71.1) % Lymph % (Auto) 14.8 L (19.3-51.7) % Dundy % (Auto) 10.5 (4.7-12.5) % Eos % (Auto) 1.5 (0.7-5.8) Baso % (Auto) 0.1 (0.1-1.2) % Neut # (Auto) 6.69 H (1.56-6.13) K/mm3 Lymph # (Auto) 1.36 (1.18-3.74) K/mm3 Dundy # (Auto) 0.96 H (0.24-0.36) K/mm3 Eos # (Auto) 0.14 (0.04-0.36) K/mm3 Baso # (Auto) 0.01 (0.01-0.08) K/mm3 Manual Slide Review PT (9.7-12.0) SECONDS INR APTT (22-31) SECONDS Sodium 141 (136-145) mEq/L Potassium 4.4 (3.5-5.1) mEq/L Chloride 105 (98-107) mEq/L Carbon Dioxide 28 (21-32) mEq/L Anion Gap 12.4 (5-15) BUN 37 H (7-18) mg/dL Creatinine 1.3 H (0.55-1.02) mg/dL Est Cr Clr Drug Dosing 32.23 mL/min Estimated GFR (MDRD) 42 (>60) mL/min BUN/Creatinine Ratio 28.5 H (14-18) Glucose 131 H (80-115) mg/dL POC Glucose (80-115) mg/dL Hemoglobin A1c (4.50-6.20) % Calcium 8.9 (8.5-10.1) mg/dL Magnesium 2.1 (1.8-2.4) mg/dl Total Bilirubin 0.9 (0.2-1.0) mg/dL AST 20 (15-37) U/L ALT 22 (14-59) U/L Alkaline Phosphatase 84 (46-116) U/L Troponin I (0.00-0.056) ng/mL C-Reactive Protein (<1.0) mg/dL NT-Pro-B Natriuret Pep (0-125) pg/mL Total Protein 7.1 (6.4-8.2) g/dl Albumin 3.5 (3.4-5.0) g/dl Globulin 3.6 gm/dL Albumin/Globulin Ratio 1.0 (1-2) Triglycerides 125 (<150) mg/dL Cholesterol 158 (<200) mg/dL LDL Cholesterol Direct 81 (<100) mg/dL HDL Cholesterol 49.0 (40-59) mg/dL TSH 3rd Generation 4.329 H (0.358-3.74) uIU/mL COVID-19 (SARAH) (NEGATIVE) MRSA (PCR) Blood Type Gel Antibody Screen Crossmatch 05/03/20 05/03/20 05/03/20 Range/Units 05:30 06:37 10:56 WBC (3.98-10.04) K/mm3 RBC (3.98-5.22) M/mm3 Hgb (11.2-15.7) gm/dl Hct (34.1-44.9) % MCV (79.4-94.8) fl MCH (25.6-32.2) pg MCHC (32.2-35.5) g/dl RDW Std Deviation (36.4-46.3) fL Plt Count (182-369) K/mm3 MPV (9.4-12.3) fl Neut % (Auto) (34.0-71.1) % Lymph % (Auto) (19.3-51.7) % Dundy % (Auto) (4.7-12.5) % Eos % (Auto) (0.7-5.8) Baso % (Auto) (0.1-1.2) % Neut # (Auto) (1.56-6.13) K/mm3 Lymph # (Auto) (1.18-3.74) K/mm3 Dundy # (Auto) (0.24-0.36) K/mm3 Eos # (Auto) (0.04-0.36) K/mm3 Baso # (Auto) (0.01-0.08) K/mm3 Manual Slide Review PT (9.7-12.0) SECONDS INR APTT (22-31) SECONDS Sodium (136-145) mEq/L Potassium (3.5-5.1) mEq/L Chloride (98-107) mEq/L Carbon Dioxide (21-32) mEq/L Anion Gap (5-15) BUN (7-18) mg/dL Creatinine (0.55-1.02) mg/dL Est Cr Clr Drug Dosing mL/min Estimated GFR (MDRD) (>60) mL/min BUN/Creatinine Ratio (14-18) Glucose (80-115) mg/dL POC Glucose 135 H 190 H (80-115) mg/dL Hemoglobin A1c 7.00 H (4.50-6.20) % Calcium (8.5-10.1) mg/dL Magnesium (1.8-2.4) mg/dl Total Bilirubin (0.2-1.0) mg/dL AST (15-37) U/L ALT (14-59) U/L Alkaline Phosphatase (46-116) U/L Troponin I (0.00-0.056) ng/mL C-Reactive Protein (<1.0) mg/dL NT-Pro-B Natriuret Pep (0-125) pg/mL Total Protein (6.4-8.2) g/dl Albumin (3.4-5.0) g/dl Globulin gm/dL Albumin/Globulin Ratio (1-2) Triglycerides (<150) mg/dL Cholesterol (<200) mg/dL LDL Cholesterol Direct (<100) mg/dL HDL Cholesterol (40-59) mg/dL TSH 3rd Generation (0.358-3.74) uIU/mL COVID-19 (SARAH) (NEGATIVE) MRSA (PCR) Blood Type Gel Antibody Screen Crossmatch Med Orders - Current: Current Medications Acetaminophen (Tylenol) 650 mg PO Q4H PRN PRN Reason: Pain/Fever Last Admin: 05/03/20 06:33 Dose: 650 mg Documented by: Amlodipine Besylate (Norvasc) 5 mg PO DAILY [facility] Last Admin: 05/03/20 08:50 Dose: 5 mg Documented by: Carvedilol (Coreg) 25 mg PO BIDMEALS [facility] Last Admin: 05/03/20 06:31 Dose: 25 mg Documented by: Citalopram Hydrobromide (Celexa) 40 mg PO DAILY [facility] Last Admin: 05/03/20 08:51 Dose: 40 mg Documented by: Dextrose/Water (Dextrose 50% In Water) 50 ml IVPUSH ASDIRECTED PRN PRN Reason: Hypoglycemia Pantoprazole Sodium 80 mg/ (Sodium Chloride) 100 mls @ 10 mls/hr IV Q10H [facility] Last Admin: 05/03/20 07:54 Dose: 10 mls/hr Documented by: Sodium Chloride (Normal Saline) 1,000 mls @ 50 mls/hr IV ASDIRECTED [facility] Last Admin: 05/03/20 11:48 Dose: 50 mls/hr Documented by: Insulin Glargine (Lantus) 10 unit SUBCUT QAM [facility] Last Admin: 05/03/20 08:49 Dose: 10 units Documented by: Insulin Human Lispro (Humalog) 0 unit SUBCUT QIDACANDBED [facility]; Protocol Last Admin: 05/03/20 11:47 Dose: 1 unit Documented by: Nitroglycerin (Nitrostat) 0.4 mg SL ASDIRECTED PRN PRN Reason: Chest Pain Discontinued Medications Furosemide (Lasix) 40 mg IVPUSH NOW ONE Stop: 05/02/20 19:01 Last Admin: 05/02/20 20:00 Dose: 40 mg Documented by: Sodium Chloride (Normal Saline) 1,000 mls @ 100 mls/hr IV ASDIRECTED [facility] Last Admin: 05/02/20 17:36 Dose: 100 mls/hr Documented by: Sodium Chloride (Normal Saline) Confirm Administered Dose 250 mls @ as directed .ROUTE .STK-MED ONE Stop: 05/02/20 23:26 Last Admin: 05/02/20 23:56 Dose: 125 mls/hr Documented by: Pantoprazole Sodium (Protonix Iv) 40 mg IVPUSH ONETIME ONE Stop: 05/02/20 19:03 Last Admin: 05/02/20 20:01 Dose: 40 mg Documented by: Pantoprazole Sodium (Protonix Iv) 40 mg IV Q12HR CUATE - Exam General: Alert, Oriented HEENT: Pupils Equal, Mucous Membr. Moist/[place] Neck: Supple Lungs: Clear to Auscultation, Normal Respiratory Effort Cardiovascular: Regular Rate, Regular Rhythm GI/Abdominal Exam: Normal Bowel Sounds, Soft, Non-Tender, No Organomegaly, No Distention, No Abnormal Bruit Extremities: Normal Inspection, Normal Range of Motion, Non-Tender, No Pedal Edema, Normal Capillary Refill Skin: Warm, Dry, Intact Neurological: No New Focal Deficit Psy/Mental Status: Alert, Normal Affect, Normal Mood Sepsis Event Note - Evaluation Sepsis Screening Result: No Definite Risk - Focused Exam Vital Signs: Vital Signs Temp Pulse Pulse Resp BP BP Pulse Ox 05/03/20 08:50 128/66 05/03/20 07:19 98.1 F 77 20 128/66 100 05/03/20 06:33 77 158/59 H 97 05/03/20 06:31 79 158/59 H 05/03/20 02:59 97.9 F 77 18 150/62 H 96 05/03/20 00:22 97.8 F 79 18 150/62 H 98 05/03/20 00:08 97.9 F 77 18 110/76 95 05/03/20 00:07 97.9 F 79 18 110/76 97 05/02/20 23:53 97.9 F 85 18 139/85 96 - Problem List & Annotations (1) Anemia SNOMED Code(s): 036280508 Code(s): D64.9 - ANEMIA, UNSPECIFIED Status: Acute Priority: High Current Visit: Yes Qualifiers: Anemia type: unspecified type Qualified Code(s): D64.9 - Anemia, unspecified (2) Cerebrovascular accident SNOMED Code(s): 400743608 Code(s): I63.9 - CEREBRAL INFARCTION, UNSPECIFIED Status: Acute Current Visit: Yes (3) Upper gastrointestinal bleeding SNOMED Code(s): 90758362 Code(s): K92.2 - GASTROINTESTINAL HEMORRHAGE, UNSPECIFIED Status: Acute Current Visit: Yes - Problem List Review Problem List Initiated/Reviewed/Updated: Yes - My Orders Last 24 Hours: My Active Orders 05/02/20 21:19 Up With Assistance [RC] ASDIRECTED Vital Signs [RC] Q4HR Resuscitation Status Routine 05/02/20 21:20 Oxygen Therapy [RC] PRN VTE/DVT Education [RC] DAILY Sequential Compression Device [OM.PC] Per Unit Routine 05/02/20 21:23 Antiembolic Devices [RC] BID Blood Glucose Check, Bedside [RC] QIDACANDBED Dextrose 50% in Water 50 ml IVPUSH ASDIRECTED PRN 05/02/20 22:00 Insulin Lispro [HumaLOG] See Protocol SUBCUT QIDACANDBED Sodium Chloride 0.9% [Normal Saline] 1,000 ml IV ASDIRECTED 05/02/20 22:07 Transfuse PRBC [Transfuse Red Blood Cells] [COMM] Routine 05/02/20 22:17 Consult to Case Management/Rn Triage [CONS] Routine OT Evaluation and Treatment [CONS] Routine PT Evaluation and Treatment [CONS] Routine 05/02/20 22:21 Nitroglycerin [Nitrostat] 0.4 mg SL ASDIRECTED PRN 05/03/20 01:10 Acetaminophen [Tylenol] 650 mg PO Q4H PRN 05/03/20 Breakfast Clear Liquid Diet [DIET] carvediloL [Coreg] 25 mg PO BIDMEALS 05/03/20 08:00 Insulin Glarg,Human.Rec.Analog [LantUS] 10 unit SUBCUT QAM 05/03/20 09:00 Citalopram [Celexa] 40 mg PO DAILY amLODIPine [Norvasc] 5 mg PO DAILY 05/03/20 10:09 [employer] Evaluation and Treatment [CONS] Routine 05/03/20 12:00 HEMOGLOBIN/HEMATOCRIT,HH [HEME] Routine 05/04/20 05:11 GLYCOSYLATED HEMOGLOBIN,HGBA1C [CHEM] AM LIPID PANEL [CHEM] AM TSH [CHEM] AM - Assessment Assessment:: Assessment of admission * Likely upper GI bleed * Hemoglobin on presentation of 6.9 * 2 days of melanotic stools * On Eliquis 5 mg twice daily for stroke prevention * CT of the brain showed moderate atrophy with prominence of the sulci. Diffuse small vessel ischemic changes. No intracranial bleeding or mass- effect. * Started on 1 unit packed red blood cell in the emergency department * Possible CVA * Patient has had significant improvement in her dysarthria with starting of packed red blood cells and volume expansion * History of CVA in the past increasing her risk for recurrence. * Dysarthria likely secondary to severe blood loss * Acute on chronic renal insufficiency * Initial creatinine 1.7 * GFR 30 * BUN elevated at 50, but likely higher secondary to GI bleeding * Insulin-dependent diabetic * Home medications include: Lantus 4 units in the evening and 10 units in the morning, NovoLog 6 units 3 times daily * Unknown hemoglobin A1c * Hypertension * Home meds include carvedilol 25 mg twice daily, amlodipine 5 mg daily, and lisinopril 20 mg daily * Hyperlipidemia * Home meds include Pravachol 20 mg daily * Carotid artery stenosis with history of CEA on left * Patient is on Eliquis 5 mg twice daily 05/03/2020 * GI bleed * Post 2 unit packed red blood cells * Hemoglobin up to 10.4 * No more melanotic stools * Eliquis stopped * Dysarthria unlikely to be secondary to CVA * Patient has had full recovery with improvement of anemia * Acute on chronic renal insufficiencyimproved * BUN 37, creatinine 1.3, estimated GFR 42 * Lisinopril held * Insulin-dependent type 2 diabetes * Hemoglobin A1c 7 * Blood sugars in the low to mid 100s * Currently on Lantus 10 units in the morning and low-dose sliding scale insu arsalan * Hypertension/hyperlipidemia * Blood pressures ranging from 120s to 150 systolic and 50s to 80s diastolic * No signs of hypotension * Restarted Carvedilol and amlodipine * Lisinopril held * Lipid panel pending * History of CVA secondary to postop complication of left CEA * Eliquis held secondary to GI bleed - Plan Plan:: Plan * Recheck hemoglobin at noon * Consult Dr. Couch * Continue IV fluids at 50 mL an hour * Stop Eliquis * Clear liquid diet * Recheck CBC, CMP, and magnesium in the morning * Continue sliding scale insulin and Lantus 10 units daily * Continue Protonix drip * Continue to follow H&H * CODE STATUS: DNR/DNIdiscussed with patient * VTE prophylaxis with SCDs. Patient has active GI bleed, therefore chemoprophylaxis is contraindicated * Length of stay likely 2 to 3 days.
[2020-05-03] MEDS ORDERED: Pantoprazole 40 MG Vial ONE (15:44)
[2020-05-04] MEDS: Carvedilol 12.5 MG Tab PO SCH (06:42)
[2020-05-04 07:23] LABS: HEMOGLOBIN A1C 6.6 % (4.50-6.20)
[2020-05-04] MEDS: amLODIPine 10 MG Tab PO SCH (09:39)
[2020-05-04] MEDS: Citalopram 20 MG Tab PO SCH (09:39)
[2020-05-04] MEDS: Insulin Lispro 100 Units/ML 3 ML Vial SUBCUT SCH ×2 (09:41→12:02)
[2020-05-04] MEDS: Insulin Glarg,Human.Rec.Analog 100 Unit/ML SUBCUT SCH (09:41)
--- NOTE | 2020-05-04 10:26 | PCM.DCSUM1 ---
Discharge Summary - Hospital Course HPI Initial Comments: 60-year-old female who resides at [facility] secondary to a history of stroke presented to the emergency department via EMS after having incoherent speech. Apparently around suppertime at 1624 hrs. she started having "garbled speech" and people had a difficulty understanding her. Per emergency department notes patient recognizes her speech was not coming out correctly. When I asked her she said she was sent to the emergency department because they thought she was having a heart attack. Patient has some dysarthria and expressive aphasia from a previous CVA occurring after her carotid endarterectomy in 2018. She had a stenotic left carotid artery with a carotid endarterectomy. According to records patient denied any visual changes and was able to ambulate. Stroke alert was called in the emergency department and CT of the head showed no new bleed. Bedside blood sugar was 146 and she is a known diabetic on insulin. Patient was found to be severely anemic with a hemoglobin of 6.9 and when questioning her further she states that she has had melanotic stools for the last 2 days, last one being around 1400 hrs. today. Patient is on Eliquis 5 mg twice a day secondary to left carotid artery occlusion. Patient's EKG in the emergency department showed normal sinus rhythm with a ventricular rate of 76 bpm. Q waves in lead V1 and V2 suggesting previous anteroseptal infarct. Assessment * Likely upper GI bleed * Hemoglobin on presentation of 6.9 * 2 days of melanotic stools * On Eliquis 5 mg twice daily for stroke prevention * CT of the brain showed moderate atrophy with prominence of the sulci. Diffuse small vessel ischemic changes. No intracranial bleeding or mass- effect. * Started on 1 unit packed red blood cell in the emergency department * Possible CVA * Patient has had significant improvement in her dysarthria with starting of packed red blood cells and volume expansion * History of CVA in the past increasing her risk for recurrence. * Dysarthria likely secondary to severe blood loss * Acute on chronic renal insufficiency * Initial creatinine 1.7 * GFR 30 BUN * Elevated at 50, but likely higher secondary to GI bleeding * Insulin-dependent diabetic * Home medications include: Lantus 4 units in the evening and 10 units in the morning, NovoLog 6 units 3 times daily * Unknown hemoglobin A1c * Hypertension * Home meds include carvedilol 25 mg twice daily, amlodipine 5 mg daily, and lisinopril 20 mg daily * Hyperlipidemia * Home meds include Pravachol 20 mg daily * Carotid artery stenosis with history of CEA on left * Patient is on Eliquis 5 mg twice daily Plan * Admit to medical floor on telemetry * Give 2 units packed red blood cells * Continue IV fluids at 50 mL an hour * Stop Eliquis * Clear liquid diet * Recheck CBC, CMP, and magnesium in the morning * Check hemoglobin A1c * Sliding scale insulin and decrease long-acting insulin by just over third * Consider consult of surgery in the morning for possible EGD * Protonix drip * Continue to follow H&H * CODE STATUS: DNR/DNIdiscussed with patient * VTE prophylaxis with SCDs. Patient has active GI bleed, therefore chemoprophylaxis is contraindicated * Length of stay likely 2 to 3 days. Diagnosis: Stroke: No - Discharge Data Discharge Date: 05/04/20 Discharge Disposition: DC/[facility]fer to [facility] Condition: Good - Referral to Home Health Primary Care Physician: Estrada Marinelli MD - Discharge Diagnosis/Problem(s) (1) Anemia SNOMED Code(s): 157064815 ICD Code: D64.9 - ANEMIA, UNSPECIFIED Status: Acute Priority: High Current Visit: Yes Qualifiers: Anemia type: unspecified type Qualified Code(s): D64.9 - Anemia, unspecified (2) Cerebrovascular accident SNOMED Code(s): 827223730 ICD Code: I63.9 - CEREBRAL INFARCTION, UNSPECIFIED Status: Acute Current Visit: Yes (3) Upper gastrointestinal bleeding SNOMED Code(s): 15226606 ICD Code: K92.2 - GASTROINTESTINAL HEMORRHAGE, UNSPECIFIED Status: Acute Current Visit: Yes - Patient Summary/Data Consults: Consultations 05/02/20 22:17 Consult to Case Management/Pulmonary Physician [CONS] Routine OT Evaluation and Treatment [CONS] Routine PT Evaluation and Treatment [CONS] Routine 05/03/20 10:09 CELL BIOLOGY SCIENTIST Evaluation and Treatment [CONS] Routine Hospital Course: Assessment 05/02/2020day of admission * Likely upper GI bleed * Hemoglobin on presentation of 6.9 * 2 days of melanotic stools * On Eliquis 5 mg twice daily for stroke prevention * CT of the brain showed moderate atrophy with prominence of the sulci. Diffuse small vessel ischemic changes. No intracranial bleeding or mass- effect. * Started on 1 unit packed red blood cell in the emergency department * Possible CVA * Patient has had significant improvement in her dysarthria with starting of packed red blood cells and volume expansion * History of CVA in the past increasing her risk for recurrence. * Dysarthria likely secondary to severe blood loss * Acute on chronic renal insufficiency * Initial creatinine 1.7 * GFR 30 * BUN elevated at 50, but likely higher secondary to GI bleeding * Insulin-dependent diabetic * Home medications include: Lantus 4 units in the evening and 10 units in the morning, NovoLog 6 units 3 times daily * Unknown hemoglobin A1c * Hypertension * Home meds include carvedilol 25 mg twice daily, amlodipine 5 mg daily, and lisinopril 20 mg daily * Hyperlipidemia * Home meds include Pravachol 20 mg daily * Carotid artery stenosis with history of CEA on left * Patient is on Eliquis 5 mg twice daily 05/03/2020 * GI bleed * Post 2 unit packed red blood cells * Hemoglobin up to 10.4 * No more melanotic stools * Eliquis stopped * Dysarthria unlikely to be secondary to CVA * Patient has had full recovery with improvement of anemia * Acute on chronic renal insufficiencyimproved * BUN 37, creatinine 1.3, estimated GFR 42 * Lisinopril held * Insulin-dependent type 2 diabetes * Hemoglobin A1c 7 * Blood sugars in the low to mid 100s * Currently on Lantus 10 units in the morning and low-dose sliding scale insulin * Hypertension/hyperlipidemia * Blood pressures ranging from 120s to 150 systolic and 50s to 80s diastolic * No signs of hypotension * Restarted Carvedilol and amlodipine * Lisinopril held * Lipid panel pending * History of CVA secondary to postop complication of left CEA * Eliquis held secondary to GI bleed 05/04/2020-day of discharge * GI bleed * Stable Hb - 11.4 * No further melanotic stools * She refused surgery consult * No anticoagulation * Dysarthria unlikely to be secondary to CVA - resolved * Acute on chronic renal insufficiency - resolved * BUN 22, creatinine 1.1, GFR 50 * Type 2 diabetes, hypertension, hyperlipidemia * Stable on day of discharge. * Restart home meds - Patient Instructions Diet: Diabetic Diet Activity: As Tolerated Driving: Do Not Drive Showering/Bathing: May Shower Notify Provider of: Fever, Nausea and/or Vomiting Other/Special Instructions: Recheck hemoglobin on Friday. If she has another melanotic stool get recheck at that time. Follow up with PCP next week. Stop Eliquis. - Discharge Plan *PRESCRIPTION DRUG MONITORING PROGRAM REVIEWED*: Not Applicable *COPY OF PRESCRIPTION DRUG MONITORING REPORT IN PATIENT AXEL: Not Applicable Prescriptions/Med Rec: Pantoprazole Sodium [Protonix] 40 mg PO BID #60 tablet. Home Medications: Home Meds Nitroglycerin [Nitrostat] 0.4 mg PO ASDIRECTED PRN 07/21/18 [History] Pravastatin [Pravachol] 20 mg PO QPM 07/21/18 [History] amLODIPine Besylate [Amlodipine Besylate] 5 mg PO DAILY 07/21/18 [History] carvediloL [Carvedilol] 25 mg PO BID 07/21/18 [History] Acetaminophen [Tylenol Arthritis] 650 mg PO QID 05/02/20 [History] Acetaminophen [Tylenol] 650 mg PO BID PRN 05/02/20 [History] Escitalopram Oxalate [Lexapro] 20 mg PO DAILY 05/02/20 [History] Insulin Aspart [NovoLOG] 6 unit SUBCUT TID 05/02/20 [History] Insulin Glargine,Hum.Rec.Anlog [Lantus Solostar] 4 units SUBCUT BEDTIME 05/02/20 [History] Insulin Glargine,Hum.Rec.Anlog [Lantus Solostar] 10 unit SUBCUT QAM 05/02/20 [History] Solifenacin Succinate 10 mg PO QPM 05/02/20 [History] lisinopriL [Prinivil] 20 mg PO DAILY 05/02/20 [History] traMADol [Ultram] 50 mg PO TID 05/02/20 [History] Pantoprazole Sodium [Protonix] 40 mg PO BID #60 tablet. 05/04/20 [Rx] Patient Handouts: Upper Gastrointestinal Bleeding, Anemia, Warning Signs of a Stroke, Ischemic Stroke Referrals: Estrada Marinelli MD [Primary Care Provider] - 05/10/20 11:30 am (Please follow up with Dr. Marinelli on May 10 at 11:30.) - Discharge Summary/Plan Comment DC Time >30 min.: Yes Discharge Summary/Plan Comment: Discharge home to long-term care facility Stop Eliquis. Continue Protonix 40 mg twice daily Follow-up with primary care provider next week. Get a recheck on hemoglobin on Friday, in 2 days. - General Info Date of Service: 05/04/20 Admission Dx/Problem (Free Text: Admission Diagnosis/Problem Admission Diagnosis/Problem CVA, Cerebrovascular accident Subjective Update: Patient is without any discomfort. No melanotic stools. Hemoglobin is stable. Functional Status: Reports: Pain Controlled - Review of Systems General: Reports: No Symptoms HEENT: Reports: No Symptoms Pulmonary: Reports: No Symptoms Cardiovascular: Reports: No Symptoms Gastrointestinal: Reports: No Symptoms - Patient Data Vitals - Most Recent: Last Vital Signs Temp 98.4 F 05/04/20 07:43 Pulse 72 05/04/20 07:43 Resp 20 05/04/20 07:43 BP 104/67 05/04/20 09:39 Pulse Ox 100 05/04/20 07:43 Weight - Most Recent: 80.014 kg I&O - Last 24 hours: Intake & Output 05/03/20 05/04/20 05/04/20 22:59 06:59 14:59 Intake Total 1950 280 Balance 195 280 Lab Results - Last 24 hrs: Laboratory Results - last 24 hr 05/03/20 05/03/20 05/03/20 Range/Units 05:30 05:30 10:56 WBC (3.98-10.04) K/mm3 RBC (3.98-5.22) M/mm3 Hgb (11.2-15.7) gm/dl Hct (34.1-44.9) % MCV (79.4-94.8) fl MCH (25.6-32.2) pg MCHC (32.2-35.5) g/dl RDW Std Deviation (36.4-46.3) fL Plt Count (182-369) K/mm3 MPV (9.4-12.3) fl Neut % (Auto) (34.0-71.1) % Lymph % (Auto) (19.3-51.7) % [place] % (Auto) (4.7-12.5) % Eos % (Auto) (0.7-5.8) Baso % (Auto) (0.1-1.2) % Neut # (Auto) (1.56-6.13) K/mm3 Lymph # (Auto) (1.18-3.74) K/mm3 [place] # (Auto) (0.24-0.36) K/mm3 Eos # (Auto) (0.04-0.36) K/mm3 Baso # (Auto) (0.01-0.08) K/mm3 Sodium (136-145) mEq/L Potassium (3.5-5.1) mEq/L Chloride (98-107) mEq/L Carbon Dioxide (21-32) mEq/L Anion Gap (5-15) BUN (7-18) mg/dL Creatinine (0.55-1.02) mg/dL Est Cr Clr Drug Dosing mL/min Estimated GFR (MDRD) (>60) mL/min BUN/Creatinine Ratio (14-18) Glucose (80-115) mg/dL POC Glucose 190 H (80-115) mg/dL Hemoglobin A1c 7.00 H (4.50-6.20) % Calcium (8.5-10.1) mg/dL Triglycerides 125 (<150) mg/dL Cholesterol 158 (<200) mg/dL LDL Cholesterol Direct 81 (<100) mg/dL HDL Cholesterol 49.0 (40-59) mg/dL TSH 3rd Generation 4.329 H (0.358-3.74) uIU/mL 05/03/20 05/03/20 05/03/20 Range/Units 13:40 16:41 19:59 WBC (3.98-10.04) K/mm3 RBC (3.98-5.22) M/mm3 Hgb 10.2 L (11.2-15.7) gm/dl Hct 32.8 L (34.1-44.9) % MCV (79.4-94.8) fl MCH (25.6-32.2) pg MCHC (32.2-35.5) g/dl RDW Std Deviation (36.4-46.3) fL Plt Count (182-369) K/mm3 MPV (9.4-12.3) fl Neut % (Auto) (34.0-71.1) % Lymph % (Auto) (19.3-51.7) % [place] % (Auto) (4.7-12.5) % Eos % (Auto) (0.7-5.8) Baso % (Auto) (0.1-1.2) % Neut # (Auto) (1.56-6.13) K/mm3 Lymph # (Auto) (1.18-3.74) K/mm3 [place] # (Auto) (0.24-0.36) K/mm3 Eos # (Auto) (0.04-0.36) K/mm3 Baso # (Auto) (0.01-0.08) K/mm3 Sodium (136-145) mEq/L Potassium (3.5-5.1) mEq/L Chloride (98-107) mEq/L Carbon Dioxide (21-32) mEq/L Anion Gap (5-15) BUN (7-18) mg/dL Creatinine (0.55-1.02) mg/dL Est Cr Clr Drug Dosing mL/min Estimated GFR (MDRD) (>60) mL/min BUN/Creatinine Ratio (14-18) Glucose (80-115) mg/dL POC Glucose 177 H 222 H (80-115) mg/dL Hemoglobin A1c (4.50-6.20) % Calcium (8.5-10.1) mg/dL Triglycerides (<150) mg/dL Cholesterol (<200) mg/dL LDL Cholesterol Direct (<100) mg/dL HDL Cholesterol (40-59) mg/dL TSH 3rd Generation (0.358-3.74) uIU/mL 05/03/20 05/04/20 05/04/20 Range/Units 20:40 06:13 06:13 WBC 9.21 (3.98-10.04) K/mm3 RBC 4.25 (3.98-5.22) M/mm3 Hgb 10.0 L 11.4 (11.2-15.7) gm/dl Hct 36.9 (34.1-44.9) % MCV 86.8 (79.4-94.8) fl MCH 26.8 (25.6-32.2) pg MCHC 30.9 L (32.2-35.5) g/dl RDW Std Deviation 48.4 H (36.4-46.3) fL Plt Count 352 (182-369) K/mm3 MPV 10.5 (9.4-12.3) fl Neut % (Auto) 73.7 H (34.0-71.1) % Lymph % (Auto) 15.0 L (19.3-51.7) % [place] % (Auto) 9.4 (4.7-12.5) % Eos % (Auto) 1.5 (0.7-5.8) Baso % (Auto) 0.2 (0.1-1.2) % Neut # (Auto) 6.78 H (1.56-6.13) K/mm3 Lymph # (Auto) 1.38 (1.18-3.74) K/mm3 [place] # (Auto) 0.87 H (0.24-0.36) K/mm3 Eos # (Auto) 0.14 (0.04-0.36) K/mm3 Baso # (Auto) 0.02 (0.01-0.08) K/mm3 Sodium 141 (136-145) mEq/L Potassium 4.8 (3.5-5.1) mEq/L Chloride 104 (98-107) mEq/L Carbon Dioxide 26 (21-32) mEq/L Anion Gap 15.8 H (5-15) BUN 22 H (7-18) mg/dL Creatinine 1.1 H (0.55-1.02) mg/dL Est Cr Clr Drug Dosing 38.09 mL/min Estimated GFR (MDRD) 50 (>60) mL/min BUN/Creatinine Ratio 20.0 H (14-18) Glucose 135 H (80-115) mg/dL POC Glucose (80-115) mg/dL Hemoglobin A1c (4.50-6.20) % Calcium 9.3 (8.5-10.1) mg/dL Triglycerides (<150) mg/dL Cholesterol (<200) mg/dL LDL Cholesterol Direct (<100) mg/dL HDL Cholesterol (40-59) mg/dL TSH 3rd Generation (0.358-3.74) uIU/mL 05/04/20 05/04/20 05/04/20 Range/Units 06:42 06:43 06:43 WBC (3.98-10.04) K/mm3 RBC (3.98-5.22) M/mm3 Hgb (11.2-15.7) gm/dl Hct (34.1-44.9) % MCV (79.4-94.8) fl MCH (25.6-32.2) pg MCHC (32.2-35.5) g/dl RDW Std Deviation (36.4-46.3) fL Plt Count (182-369) K/mm3 MPV (9.4-12.3) fl Neut % (Auto) (34.0-71.1) % Lymph % (Auto) (19.3-51.7) % [place] % (Auto) (4.7-12.5) % Eos % (Auto) (0.7-5.8) Baso % (Auto) (0.1-1.2) % Neut # (Auto) (1.56-6.13) K/mm3 Lymph # (Auto) (1.18-3.74) K/mm3 [place] # (Auto) (0.24-0.36) K/mm3 Eos # (Auto) (0.04-0.36) K/mm3 Baso # (Auto) (0.01-0.08) K/mm3 Sodium (136-145) mEq/L Potassium (3.5-5.1) mEq/L Chloride (98-107) mEq/L Carbon Dioxide (21-32) mEq/L Anion Gap (5-15) BUN (7-18) mg/dL Creatinine (0.55-1.02) mg/dL Est Cr Clr Drug Dosing mL/min Estimated GFR (MDRD) (>60) mL/min BUN/Creatinine Ratio (14-18) Glucose (80-115) mg/dL POC Glucose 142 H (80-115) mg/dL Hemoglobin A1c 6.60 H (4.50-6.20) % Calcium (8.5-10.1) mg/dL Triglycerides 105 (<150) mg/dL Cholesterol 175 (<200) mg/dL LDL Cholesterol Direct 92 (<100) mg/dL HDL Cholesterol 58.0 (40-59) mg/dL TSH 3rd Generation 3.394 (0.358-3.74) uIU/mL Med Orders - Current: Current Medications Acetaminophen (Tylenol) 650 mg PO Q4H PRN PRN Reason: Pain/Fever Last Admin: 05/03/20 20:30 Dose: 650 mg Documented by: Amlodipine Besylate (Norvasc) 5 mg PO DAILY [facility] Last Admin: 05/04/20 09:39 Dose: 5 mg Documented by: Carvedilol (Coreg) 25 mg PO BIDMEALS [facility] Last Admin: 05/04/20 06:42 Dose: 25 mg Documented by: Citalopram Hydrobromide (Celexa) 40 mg PO DAILY [facility] Last Admin: 05/04/20 09:39 Dose: 40 mg Documented by: Dextrose/Water (Dextrose 50% In Water) 50 ml IVPUSH ASDIRECTED PRN PRN Reason: Hypoglycemia Insulin Glargine (Lantus) 10 unit SUBCUT QAM [facility] Last Admin: 05/04/20 09:41 Dose: 10 units Documented by: Insulin Human Lispro (Humalog) 0 unit SUBCUT QIDACANDBED [facility]; Protocol Last Admin: 05/04/20 09:41 Dose: Not Given Documented by: Nitroglycerin (Nitrostat) 0.4 mg SL ASDIRECTED PRN PRN Reason: Chest Pain Discontinued Medications Furosemide (Lasix) 40 mg IVPUSH NOW ONE Stop: 05/02/20 19:01 Last Admin: 05/02/20 20:00 Dose: 40 mg Documented by: Sodium Chloride (Normal Saline) 1,000 mls @ 100 mls/hr IV ASDIRECTED [facility] Last Admin: 05/02/20 17:36 Dose: 100 mls/hr Documented by: Pantoprazole Sodium 80 mg/ (Sodium Chloride) 100 mls @ 10 mls/hr IV Q10H [facility] Last Admin: 05/03/20 16:54 Dose: 10 mls/hr Documented by: Sodium Chloride (Normal Saline) 1,000 mls @ 50 mls/hr IV ASDIRECTED [facility] Last Admin: 05/03/20 11:48 Dose: 50 mls/hr Documented by: Sodium Chloride (Normal Saline) Confirm Administered Dose 250 mls @ as directed .ROUTE .STK-MED ONE Stop: 05/02/20 23:26 Last Admin: 05/02/20 23:56 Dose: 125 mls/hr Documented by: Pantoprazole Sodium (Protonix Iv) 40 mg IVPUSH ONETIME ONE Stop: 05/02/20 19:03 Last Admin: 05/02/20 20:01 Dose: 40 mg Documented by: Pantoprazole Sodium (Protonix Iv) 40 mg IV Q12HR CUATE Pantoprazole Sodium (Protonix Iv) Confirm Administered Dose 80 mg .ROUTE .STK-MED ONE Stop: 05/03/20 15:45 Last Admin: 05/03/20 16:58 Dose: Not Given Documented by: - Exam Quality Assessment: Denies: Supplemental Oxygen General: Reports: Alert, Oriented HEENT: Reports: Pupils Equal, Mucous Membr. Moist/[place] Neck: Reports: Supple Lungs: Reports: Clear to Auscultation, Normal Respiratory Effort Cardiovascular: Reports: Regular Rate, Regular Rhythm GI/Abdominal Exam: Normal Bowel Sounds, Soft, Non-Tender, No Organomegaly, No Distention, No Abnormal Bruit Extremities: Normal Inspection, Normal Range of Motion, Non-Tender, No Pedal Edema, Normal Capillary Refill Skin: Reports: Warm, Dry, Intact Neurological: Reports: No New Focal Deficit Psy/Mental Status: Reports: Alert, Normal Affect, Normal Mood
[2020-05-04 12:33] VITALS: BP 122/70; PULSE 67
== END 2020-05-04 12:40 | DRG 377 ==
LOC: JD.ED 17:08 → JD.MS 19:22 → OBSVTOIN 19:23
PROVIDERS: ADMIT Family Medicine; ATTEND Family Medicine
PROC: 30233N1 Transfusion of Nonautologous Red Blood Cells into Peripheral Vein, Percutaneous Approach (ICD-10-PCS; principal; 2020-05-02)
DX: K92.2 Gastrointestinal hemorrhage, unspecified (principal); R47.01 Aphasia; I63.9 Cerebral infarction, unspecified; N17.9 Acute kidney failure, unspecified; H54.7 Unspecified visual loss; E78.5 Hyperlipidemia, unspecified; I25.10 Atherosclerotic heart disease of native coronary artery without angina pectoris; Z20.828 Contact with and (suspected) exposure to other viral communicable diseases; Z66 Do not resuscitate; E78.00 Pure hypercholesterolemia, unspecified; I12.9 Hypertensive chronic kidney disease with stage 1 through stage 4 chronic kidney disease, or unspecified chronic kidney disease; Z86.73 Personal history of transient ischemic attack (TIA), and cerebral infarction without residual deficits; E11.22 Type 2 diabetes mellitus with diabetic chronic kidney disease; Z98.49 Cataract extraction status, unspecified eye; Z90.49 Acquired absence of other specified parts of digestive tract; Z98.84 Bariatric surgery status; F41.9 Anxiety disorder, unspecified; D63.1 Anemia in chronic kidney disease; F32.9 Major depressive disorder, single episode, unspecified; K21.9 Gastro-esophageal reflux disease without esophagitis; N18.3 Chronic kidney disease, stage 3 (moderate); M19.90 Unspecified osteoarthritis, unspecified site; R47.1 Dysarthria and anarthria; Z91.09 Other allergy status, other than to drugs and biological substances; Z88.8 Allergy status to other drugs, medicaments and biological substances; Z79.4 Long term (current) use of insulin; Z79.899 Other long term (current) drug therapy; Z87.891 Personal history of nicotine dependence; Z79.01 Long term (current) use of anticoagulants; Z91.048 Other nonmedicinal substance allergy status
CPT/HCPCS: 36415; 70450; 80053; 82962; 83735; 83880; 84484; 85025; 85610; 85730; 86140; 87635; 93005; 99285; J7030; 36430; 80048; 80061; 83036; 84443; 85014; 85018; 86850; 86900; 86901; 86922; 87641; 92610-GN; 93010; 96365; 96375; 97110-GP; 97116-GP; 97162-GP; 97165-GO; 97530-GO; 97535-GO; 99222; 99232; 99239; A9270-GY; C9113; J1815-GY; J1940; J7050; P9016; U0002

== ENCOUNTER 2020-05-09 15:13 | Observation (INO) | payer MEDICAID ==
[2020-05-09] MEDS ORDERED: Sodium Chloride 0.9% 10 ML Syringe FLUSH PRN (16:08)
--- NOTE | 2020-05-09 16:24 | EDM.PDOC ---
ED HPI GENERAL MEDICAL PROBLEM - General Chief Complaint: Neuro Symptoms/Deficits Stated Complaint: TIREDNESS/SLURRED SPEECH Time Seen by Provider: 05/09/20 16:09 Source of Information: Reports: Patient, Old Records (recent ER visit and hospital stay), RN Notes Reviewed History Limitations: Reports: Language Barrier (Patient is having expressive aphasia, this seems to be a chronic thing for her.) - History of Present Illness INITIAL COMMENTS - FREE TEXT/NARRATIVE: Patient is a 60-year-old female who presents to the ER today for increasing weakness and slurred speech. Patient is alert and oriented x4 on initial exam. I did try talking with her, and I asked her what brings her here, she states I do not know. She states she feels generally weak, she is not had any falls, not having any pain anywhere. She most recently spent time in his hospital for a hemoglobin that was found to be 6.9, she received some blood products, and was sent home to [facility]. Patient is an insulin-dependent diabetic. There is no staff present in the room to discuss her case with at this time. Again it seems as if the expressive aphasia has been happening with her. She further denies any fevers or chills, nausea vomiting or diarrhea, NIH scale showed only a deficit of her speech. - Related Data Allergies Allergy/AdvReac Type Severity Reaction Status Date / Time adhesive tape Allergy Rash Verified 05/02/20 23:13 simvastatin [From Zocor] AdvReac Muscle Verified 05/02/20 23:13 Aches [id number] Reductase AdvReac Muscle Verified 05/02/20 23:13 Inhibitor Aches Home Meds: Home Meds Nitroglycerin [Nitrostat] 0.4 mg PO ASDIRECTED PRN 07/21/18 [History] Pravastatin [Pravachol] 20 mg PO QPM 07/21/18 [History] amLODIPine Besylate [Amlodipine Besylate] 5 mg PO DAILY 07/21/18 [History] carvediloL [Carvedilol] 25 mg PO BID 07/21/18 [History] Acetaminophen [Tylenol Arthritis] 650 mg PO QID 05/02/20 [History] Acetaminophen [Tylenol] 650 mg PO BID PRN 05/02/20 [History] Escitalopram Oxalate [Lexapro] 20 mg PO DAILY 05/02/20 [History] Insulin Aspart [NovoLOG] 6 unit SUBCUT TID 05/02/20 [History] Insulin Glargine,Hum.Rec.Anlog [Lantus Solostar] 4 units SUBCUT BEDTIME 05/02/20 [History] Insulin Glargine,Hum.Rec.Anlog [Lantus Solostar] 10 unit SUBCUT QAM 05/02/20 [History] Solifenacin Succinate 10 mg PO QPM 05/02/20 [History] lisinopriL [Prinivil] 20 mg PO DAILY 05/02/20 [History] traMADol [Ultram] 50 mg PO TID 05/02/20 [History] Pantoprazole Sodium [Protonix] 40 mg PO BID #60 tablet. 05/04/20 [Rx] Past Medical History HEENT History: Reports: Cataract, Impaired Vision Other HEENT History: patient states wears glasses but not here Cardiovascular History: Reports: High Cholesterol, Hypertension, Other (See Below) Other Cardiovascular History: Left Carotid Artery is occluded. Respiratory History: Reports: None Gastrointestinal History: Reports: Chronic Diarrhea, GERD Genitourinary History: Reports: Other (See Below) Other Genitourinary History: states kidneys are failing ASSISTED LIVING ASSOCIATE History: Reports: None Musculoskeletal History: Reports: Arthritis, Other (See Below) Other Musculoskeletal History: generalized muscle weakness, unsteadiness on feet, pain in R knee, pain in R shoulder, displaced bicondylar fracture of right tibia Neurological History: Reports: CVA Psychiatric History: Reports: Anxiety, Depression, Mood Swings, Other (See Below) Other Psychiatric History: "amnesia, memory deficit." Endocrine/Metabolic History: Reports: Diabetes, Type I, Diabetes, Type II Hematologic History: Reports: Iron Deficiency Immunologic History: Reports: None Oncologic (Cancer) History: Reports: None - Infectious Disease History Infectious Disease History: Reports: Chicken Pox, Measles, Mumps - Past Surgical History HEENT Surgical History: Reports: Cataract Surgery GI Surgical History: Reports: Bariatric Procedure, Cholecystectomy, Other (See Below) Dermatological Surgical History: Reports: Plastic Surgical Reconstruction/Repair Social & Family History - Family History Family Medical History: Noncontributory - Caffeine Use Caffeine Use: Reports: Coffee - Living Situation & Occupation Living situation: Reports: Single, Extended Care Facility (Currently residing at [facility]) Occupation: Employed ED ROS GENERAL - Review of Systems Review Of Systems: Comprehensive ROS is negative, except as noted in HPI. ED EXAM, GENERAL - Physical Exam Exam: See Below Exam Limited By: No Limitations General Appearance: Alert, WD/WN, No Apparent Distress Eye Exam: Bilateral Eye: EOMI, Normal Inspection, PERRL Head: Atraumatic, Normocephalic Neck: Normal Inspection Respiratory/Chest: No Respiratory Distress, Lungs Clear, Normal Breath Sounds, No Accessory Muscle Use, Chest Non-Tender Cardiovascular: Normal Peripheral Pulses, Regular Rate, Rhythm, No Murmur Peripheral Pulses: 2+: Radial (L), Radial (R) Neurological: Alert, Normal Cognition (answers questions appropriately) Psychiatric: Normal Affect, Normal Mood Skin Exam: Warm, Dry, Intact, No Rash, Pallor (generalized) Course - Vital Signs Last Recorded V/S: Last Vital Signs Temp 98.5 F 05/09/20 15:49 Pulse 73 05/09/20 15:49 Resp 20 05/09/20 15:49 BP 126/51 L 05/09/20 15:49 Pulse Ox 97 05/09/20 15:49 - Orders/Labs/Meds Orders: Active Orders 24 hr Category Date Time Status Peripheral IV Care [RC] . DIRECTED Care 05/09/20 16:08 Active Chest 1V Frontal [CR] Stat Exams 05/09/20 17:17 Ordered Head wo Cont [CT] Stat Exams 05/09/20 16:08 Taken CORONAVIRUS COVID-19 SARAH [MOLEC] Stat Lab 05/09/20 17:14 Ordered CULTURE BLOOD [BC] Stat Lab 05/09/20 17:13 Ordered CULTURE BLOOD [BC] Stat Lab 05/09/20 17:13 Ordered UA W/MICROSCOPIC [URIN] Stat Lab 05/09/20 17:13 Ordered Sodium Chloride 0.9% [Saline Flush] Med 05/09/20 16:08 Active 10 ml FLUSH ASDIRECTED PRN Blood Culture x2 Reflex Set [OM.PC] Stat Oth 05/09/20 17:13 Ordered Peripheral IV Insertion Adult [OM.PC] Routine Oth 05/09/20 16:08 Ordered Medication Orders Sodium Chloride (Saline Flush) 10 ml FLUSH ASDIRECTED PRN PRN Reason: Keep Vein Open Last Admin: 05/09/20 16:16 Dose: 10 ml Documented by: [facility] Labs: Laboratory Tests 05/09/20 05/09/20 05/09/20 Range/Units 16:15 16:15 17:39 WBC 22.16 H (3.98-10.04) K/mm3 RBC 3.62 L (3.98-5.22) M/mm3 Hgb 9.8 L D (11.2-15.7) gm/dl Hct 31.9 L (34.1-44.9) % MCV 88.1 (79.4-94.8) fl MCH 27.1 (25.6-32.2) pg MCHC 30.7 L (32.2-35.5) g/dl RDW Std Deviation 49.3 H (36.4-46.3) fL Plt Count 347 (182-369) K/mm3 MPV 10.5 (9.4-12.3) fl Neut % (Auto) 94.9 H (34.0-71.1) % Lymph % (Auto) 2.5 L (19.3-51.7) % Vigo % (Auto) 2.2 L (4.7-12.5) % Eos % (Auto) 0 L (0.7-5.8) Baso % (Auto) 0.1 (0.1-1.2) % Neut # (Auto) 21.02 H (1.56-6.13) K/mm3 Lymph # (Auto) 0.56 L (1.18-3.74) K/mm3 Vigo # (Auto) 0.48 H (0.24-0.36) K/mm3 Eos # (Auto) 0.01 L (0.04-0.36) K/mm3 Baso # (Auto) 0.02 (0.01-0.08) K/mm3 Manual Slide Review Abnormal smear Sodium 132 L (136-145) mEq/L Potassium 4.5 (3.5-5.1) mEq/L Chloride 98 (98-107) mEq/L Carbon Dioxide 24 (21-32) mEq/L Anion Gap 14.5 (5-15) BUN 54 H D (7-18) mg/dL Creatinine 1.9 H (0.55-1.02) mg/dL Est Cr Clr Drug Dosing 26.51 mL/min Estimated GFR (MDRD) 27 (>60) mL/min BUN/Creatinine Ratio 28.4 H (14-18) Glucose 218 H (80-115) mg/dL Lactic Acid 1.9 (0.4-2.0) mmol/L Calcium 8.9 (8.5-10.1) mg/dL Magnesium 2.1 (1.8-2.4) mg/dl Total Bilirubin 0.7 (0.2-1.0) mg/dL AST 13 L (15-37) U/L ALT 18 (14-59) U/L Alkaline Phosphatase 107 (46-116) U/L Total Protein 6.6 (6.4-8.2) g/dl Albumin 2.7 L (3.4-5.0) g/dl Globulin 3.9 gm/dL Albumin/Globulin Ratio 0.7 L (1-2) Meds: Medications Generic Name Dose Route Start Last Admin Trade Name Freq PRN Reason Stop Dose Admin Sodium Chloride 10 ml 05/09/20 16:08 05/09/20 16:16 Saline Flush FLUSH 10 ml ASDIRECTED PRN Administration Keep Vein Open - Re-Assessments/Exams Free Text/Narrative Re-Assessment/Exam: 05/09/20 16:32 Patient presents to the ED for evaluation of her weakness, and slurred speech. I did review her snf notes, however not exactly sure as to what has changed. She is got some generalized pallor. Basic labs will be obtained along with a head CT for evaluation. 05/09/20 17:15 The patient's white blood cell count is quite elevated at 22,000, with 94% neutrophils on auto differential patient's metabolic panel also demonstrates an elevated creatinine 1.9, GFR that is decreased at 27; labs done 5 days ago demonstrated a creatinine 1.1 and a GFR 50. Hemoglobin is 9.6. On hospital discharge it was 11.2. At this time have ordered chest x-ray, urinalysis, lactic acid, blood cultures. Head CT demonstrates no acute findings, everything looks similar to her CT done at her prior hospitalization. Departure - Departure Time of Disposition: 19:00 Disposition: Admitted As Inpatient 64 Condition: Fair Clinical Impression: Renal insufficiency - Discharge Information *PRESCRIPTION DRUG MONITORING PROGRAM REVIEWED*: No *COPY OF PRESCRIPTION DRUG MONITORING REPORT IN PATIENT AXEL: No Referrals: Estrada Marinelli MD [Primary Care Provider] - Forms: ED Department Discharge Sepsis Event Note (ED) - Evaluation Sepsis Screening Result: No Definite Risk - Focused Exam Vital Signs: Vital Signs Temp Pulse Resp BP Pulse Ox 05/09/20 15:49 98.5 F 73 20 126/51 L 97 - My Orders Last 24 Hours: My Active Orders 05/09/20 16:08 Peripheral IV Care [RC] . DIRECTED Head wo Cont [CT] Stat Sodium Chloride 0.9% [Saline Flush] 10 ml FLUSH ASDIRECTED PRN Peripheral IV Insertion Adult [OM.PC] Routine 05/09/20 17:13 CULTURE BLOOD [BC] Stat CULTURE BLOOD [BC] Stat UA W/MICROSCOPIC [URIN] Stat Blood Culture x2 Reflex Set [OM.PC] Stat 05/09/20 17:14 CORONAVIRUS COVID-19 SARAH [MOLEC] Stat 05/09/20 17:17 Chest 1V Frontal [CR] Stat - Assessment/Plan Last 24 Hours: My Active Orders 05/09/20 16:08 Peripheral IV Care [RC] . DIRECTED Head wo Cont [CT] Stat Sodium Chloride 0.9% [Saline Flush] 10 ml FLUSH ASDIRECTED PRN Peripheral IV Insertion Adult [OM.PC] Routine 05/09/20 17:13 CULTURE BLOOD [BC] Stat CULTURE BLOOD [BC] Stat UA W/MICROSCOPIC [URIN] Stat Blood Culture x2 Reflex Set [OM.PC] Stat 05/09/20 17:14 CORONAVIRUS COVID-19 SARAH [MOLEC] Stat 05/09/20 17:17 Chest 1V Frontal [CR] Stat
[2020-05-09] MEDS ORDERED: Acetaminophen 325 MG Tab PO PRN (21:57)
--- NOTE | 2020-05-09 22:02 | PCM.HP.2 ---
H&P History of Present Illness - General Date of Service: 05/09/20 Admit Problem/Dx: Admission Diagnosis/Problem Admission Diagnosis/Problem Worsening Expressive aphasia - History of Present Illness Initial Comments - Free Text/Narative: The patient is a 60 yo female who resides at [facility]. The patient had recent hospitalization on 05/02 where she was found with GI bleed, low hgb and given 2 units of PRBCs which improved symptoms and patient was discharged, home eliquis stopped. The patient was brought to the ED today after nursing staff noticed patient had increased slurred speech and increased weakness. residential reports the patient had UA performed which was negative but patient was found with elevated WBC of 23.1 at residential. The patient does have a history of stroke in 2018 after carotid endarterectomy. She states this does not feel like a stroke to her. She does not feel weakness on one side or the other. She denies dizziness or lightheadedness. She does not notice she is slurring her words more. She does feel increased tired. Denies shortness of breath, chest pain, abdominal pain. Denies recent diarrhea or blood in stools. - Related Data Allergies/Adverse Reactions: Allergies Allergy/AdvReac Type Severity Reaction Status Date / Time adhesive tape Allergy Rash Verified 05/02/20 23:13 simvastatin [From Zocor] AdvReac Muscle Verified 05/02/20 23:13 Aches Jytcplc-[id number] Reductase AdvReac Muscle Verified 05/02/20 23:13 Inhibitor Aches Home Medications: Home Meds Nitroglycerin [Nitrostat] 0.4 mg PO ASDIRECTED PRN 07/21/18 [History] Pravastatin [Pravachol] 20 mg PO QPM 07/21/18 [History] amLODIPine Besylate [Amlodipine Besylate] 5 mg PO DAILY 07/21/18 [History] carvediloL [Carvedilol] 25 mg PO BID 07/21/18 [History] Acetaminophen [Tylenol Arthritis] 650 mg PO QID 05/02/20 [History] Acetaminophen [Tylenol] 650 mg PO BID PRN 05/02/20 [History] Escitalopram Oxalate [Lexapro] 20 mg PO DAILY 05/02/20 [History] Insulin Aspart [NovoLOG] 6 unit SUBCUT TID 05/02/20 [History] Insulin Glargine,Hum.Rec.Anlog [Lantus Solostar] 4 units SUBCUT BEDTIME 05/02/20 [History] Solifenacin Succinate 10 mg PO QPM 05/02/20 [History] lisinopriL [Prinivil] 20 mg PO DAILY 05/02/20 [History] traMADol [Ultram] 50 mg PO TID 05/02/20 [History] Pantoprazole Sodium [Protonix] 40 mg PO BID #60 tablet. 05/04/20 [Rx] Aspirin [Halfprin] 81 mg PO DAILY 05/09/20 [History] Past Medical History HEENT History: Reports: Cataract, Impaired Vision Other HEENT History: patient states wears glasses but not here Cardiovascular History: Reports: High Cholesterol, Hypertension, Other (See Below) Other Cardiovascular History: Left Carotid Artery is occluded. Respiratory History: Reports: None Gastrointestinal History: Reports: Chronic Diarrhea, GERD Genitourinary History: Reports: Other (See Below) Other Genitourinary History: states kidneys are failing MENTAL HEALTH COUNSELOR History: Reports: None Musculoskeletal History: Reports: Arthritis, Other (See Below) Other Musculoskeletal History: generalized muscle weakness, unsteadiness on feet, pain in R knee, pain in R shoulder, displaced bicondylar fracture of right tibia Neurological History: Reports: CVA Psychiatric History: Reports: Anxiety, Depression, Mood Swings, Other (See Below) Other Psychiatric History: "amnesia, memory deficit." Endocrine/Metabolic History: Reports: Diabetes, Type I, Diabetes, Type II Hematologic History: Reports: Iron Deficiency Immunologic History: Reports: None Oncologic (Cancer) History: Reports: None - Infectious Disease History Infectious Disease History: Reports: Chicken Pox, Measles, Mumps - Past Surgical History HEENT Surgical History: Reports: Cataract Surgery GI Surgical History: Reports: Bariatric Procedure, Cholecystectomy, Other (See Below) Dermatological Surgical History: Reports: Plastic Surgical Reconstruction/Repair Social & Family History - Family History Family Medical History: Noncontributory - Tobacco Use Smoking Status *Q: Never Smoker Second Hand Smoke Exposure: No - Caffeine Use Caffeine Use: Reports: Coffee - Recreational Drug Use Recreational Drug Use: No - Living Situation & Occupation Living situation: Reports: Single, Extended Care Facility (Currently residing at [facility]) Occupation: Employed H&P Review of Systems - Review of Systems: Review Of Systems: See Below General: Reports: Weakness, Fatigue. Denies: Fever, Chills, Decreased Appetite HEENT: Denies: Headaches, Sore Throat Pulmonary: Denies: Shortness of Breath, Wheezing, Cough Cardiovascular: Denies: Chest Pain, Palpitations, Orthopnea, Lightheadedness Gastrointestinal: Reports: Constipation. Denies: Abdominal Pain, Black Stool, Bloody Stool, Diarrhea Genitourinary: Denies: Dysuria, Frequency, Burning Musculoskeletal: Reports: Joint Pain, Muscle Stiffness Neurological: Denies: Confusion, Dizziness, Headache Exam - Exam Exam: See Below - Vital Signs Vital Signs: Last Vital Signs Temp 98.5 F 05/09/20 15:49 Pulse 73 05/09/20 15:49 Resp 20 05/09/20 15:49 BP 126/51 L 05/09/20 15:49 Pulse Ox 97 05/09/20 15:49 Weight: 175 lb - Exam General: Alert, Oriented, Cooperative HEENT: EOMI, Pupils Reactive Neck: Supple Lungs: Clear to Auscultation, Normal Respiratory Effort. No: Rales, Rub, Wheezing Cardiovascular: Regular Rate, Regular Rhythm, Systolic Murmur (2/6) GI/Abdominal Exam: Soft, Non-Tender, Other (hypoactive bowel sounds) Extremities: Normal Inspection, Non-Tender, Normal Capillary Refill. No: Pedal Edema Peripheral Pulses: 2+: Posterior Tibial (L), Posterior Tibial (R) Skin: Warm, Dry, Intact Neurological: Other (Speech is slurred and patient does take a couple of seconds to think of word before answering. No facial droop. Pt able to raise eyebrows and puff out cheeks. ) Neuro Extensive - Mental Status: Alert, Oriented x3 - Patient Data Lab Results Last 24 hrs: Laboratory Results - last 24 hr 05/09/20 05/09/20 05/09/20 Range/Units 16:15 16:15 17:39 WBC 22.16 H (3.98-10.04) K/mm3 RBC 3.62 L (3.98-5.22) M/mm3 Hgb 9.8 L D (11.2-15.7) gm/dl Hct 31.9 L (34.1-44.9) % MCV 88.1 (79.4-94.8) fl MCH 27.1 (25.6-32.2) pg MCHC 30.7 L (32.2-35.5) g/dl RDW Std Deviation 49.3 H (36.4-46.3) fL Plt Count 347 (182-369) K/mm3 MPV 10.5 (9.4-12.3) fl Neut % (Auto) 94.9 H (34.0-71.1) % Lymph % (Auto) 2.5 L (19.3-51.7) % Stewart % (Auto) 2.2 L (4.7-12.5) % Eos % (Auto) 0 L (0.7-5.8) Baso % (Auto) 0.1 (0.1-1.2) % Neut # (Auto) 21.02 H (1.56-6.13) K/mm3 Lymph # (Auto) 0.56 L (1.18-3.74) K/mm3 Stewart # (Auto) 0.48 H (0.24-0.36) K/mm3 Eos # (Auto) 0.01 L (0.04-0.36) K/mm3 Baso # (Auto) 0.02 (0.01-0.08) K/mm3 Manual Slide Review Abnormal smear Sodium 132 L (136-145) mEq/L Potassium 4.5 (3.5-5.1) mEq/L Chloride 98 (98-107) mEq/L Carbon Dioxide 24 (21-32) mEq/L Anion Gap 14.5 (5-15) BUN 54 H D (7-18) mg/dL Creatinine 1.9 H (0.55-1.02) mg/dL Est Cr Clr Drug Dosing 26.51 mL/min Estimated GFR (MDRD) 27 (>60) mL/min BUN/Creatinine Ratio 28.4 H (14-18) Glucose 218 H (80-115) mg/dL Lactic Acid 1.9 (0.4-2.0) mmol/L Calcium 8.9 (8.5-10.1) mg/dL Magnesium 2.1 (1.8-2.4) mg/dl Total Bilirubin 0.7 (0.2-1.0) mg/dL AST 13 L (15-37) U/L ALT 18 (14-59) U/L Alkaline Phosphatase 107 (46-116) U/L Total Protein 6.6 (6.4-8.2) g/dl Albumin 2.7 L (3.4-5.0) g/dl Globulin 3.9 gm/dL Albumin/Globulin Ratio 0.7 L (1-2) Urine Color (Yellow) Urine Appearance (Clear) Urine pH (5.0-8.0) Ur Specific Johnston (1.005-1.030) Urine Protein (Negative) Urine Glucose (UA) (Negative) Urine Ketones (Negative) Urine Occult Blood (Negative) Urine Nitrite (Negative) Urine Bilirubin (Negative) Urine Urobilinogen (0.2-1.0) Ur Leukocyte Esterase (Negative) U Hyaline Cast (Auto) (0-5) /lpf Urine RBC (0-5) /hpf Urine WBC (0-5) /hpf Ur Squamous Epith Cells (0-5) /hpf Urine Bacteria (FEW) /hpf Urine Mucus (FEW) /hpf COVID-19 (SARAH) (NEGATIVE) 05/09/20 05/09/20 Range/Units 20:00 21:00 WBC (3.98-10.04) K/mm3 RBC (3.98-5.22) M/mm3 Hgb (11.2-15.7) gm/dl Hct (34.1-44.9) % MCV (79.4-94.8) fl MCH (25.6-32.2) pg MCHC (32.2-35.5) g/dl RDW Std Deviation (36.4-46.3) fL Plt Count (182-369) K/mm3 MPV (9.4-12.3) fl Neut % (Auto) (34.0-71.1) % Lymph % (Auto) (19.3-51.7) % Stewart % (Auto) (4.7-12.5) % Eos % (Auto) (0.7-5.8) Baso % (Auto) (0.1-1.2) % Neut # (Auto) (1.56-6.13) K/mm3 Lymph # (Auto) (1.18-3.74) K/mm3 Stewart # (Auto) (0.24-0.36) K/mm3 Eos # (Auto) (0.04-0.36) K/mm3 Baso # (Auto) (0.01-0.08) K/mm3 Manual Slide Review Sodium (136-145) mEq/L Potassium (3.5-5.1) mEq/L Chloride (98-107) mEq/L Carbon Dioxide (21-32) mEq/L Anion Gap (5-15) BUN (7-18) mg/dL Creatinine (0.55-1.02) mg/dL Est Cr Clr Drug Dosing mL/min Estimated GFR (MDRD) (>60) mL/min BUN/Creatinine Ratio (14-18) Glucose (80-115) mg/dL Lactic Acid (0.4-2.0) mmol/L Calcium (8.5-10.1) mg/dL Magnesium (1.8-2.4) mg/dl Total Bilirubin (0.2-1.0) mg/dL AST (15-37) U/L ALT (14-59) U/L Alkaline Phosphatase (46-116) U/L Total Protein (6.4-8.2) g/dl Albumin (3.4-5.0) g/dl Globulin gm/dL Albumin/Globulin Ratio (1-2) Urine Color Yellow (Yellow) Urine Appearance Clear (Clear) Urine pH 5.5 (5.0-8.0) Ur Specific Johnston 1.020 (1.005-1.030) Urine Protein 1+ H (Negative) Urine Glucose (UA) Negative (Negative) Urine Ketones Negative (Negative) Urine Occult Blood Negative (Negative) Urine Nitrite Negative (Negative) Urine Bilirubin Negative (Negative) Urine Urobilinogen 0.2 (0.2-1.0) Ur Leukocyte Esterase Negative (Negative) U Hyaline Cast (Auto) 5-10 H (0-5) /lpf Urine RBC Not seen (0-5) /hpf Urine WBC Not seen (0-5) /hpf Ur Squamous Epith Cells 0-5 (0-5) /hpf Urine Bacteria Moderate H (FEW) /hpf Urine Mucus Few (FEW) /hpf COVID-19 (SARAH) Negative (NEGATIVE) Result Diagrams: 05/10/20 12:30 05/10/20 05:38 Sepsis Event Note - Evaluation Sepsis Screening Result: No Definite Risk - Focused Exam Vital Signs: Vital Signs Temp Pulse Resp BP Pulse Ox 05/09/20 15:49 98.5 F 73 20 126/51 L 97 - Problem List (1) Leukocytosis SNOMED Code(s): 277418475, 197892517 ICD Code: D72.829 - ELEVATED WHITE BLOOD CELL COUNT, UNSPECIFIED Status: Acute Current Visit: Yes (2) Acute renal failure SNOMED Code(s): 25494224 ICD Code: N17.9 - ACUTE KIDNEY FAILURE, UNSPECIFIED Status: Acute Current Visit: Yes (3) Hyponatremia SNOMED Code(s): 94906199 ICD Code: E87.1 - HYPO-OSMOLALITY AND HYPONATREMIA Status: Acute Current Visit: Yes (4) Dehydration SNOMED Code(s): 86996273 ICD Code: E86.0 - DEHYDRATION Status: Acute Current Visit: Yes (5) Weakness SNOMED Code(s): 10652400 ICD Code: R53.1 - WEAKNESS Status: Acute Priority: High Current Visit: No (6) Anemia SNOMED Code(s): 943360595 ICD Code: D64.9 - ANEMIA, UNSPECIFIED Status: Acute Priority: High Current Visit: No Qualifiers: Anemia type: iron deficiency (7) CAD (coronary artery disease) SNOMED Code(s): 96005565 ICD Code: I25.10 - ATHSCL HEART DISEASE OF [place] CORONARY ARTERY W/O ANG PCTRS Status: Acute Current Visit: Yes (8) Expressive aphasia SNOMED Code(s): 429122826, 521334322 ICD Code: R47.01 - APHASIA Status: Acute Current Visit: No (9) Depression SNOMED Code(s): 70663415 ICD Code: F32.9 - MAJOR DEPRESSIVE DISORDER, SINGLE EPISODE, UNSPECIFIED Status: Acute Current Visit: Yes (10) Anxiety SNOMED Code(s): 81077951 ICD Code: F41.9 - ANXIETY DISORDER, UNSPECIFIED Status: Acute Current Visit: Yes (11) Hx of CABG SNOMED Code(s): 733307410, 089483061 ICD Code: Z95.1 - PRESENCE OF AORTOCORONARY BYPASS GRAFT Status: Acute Current Visit: Yes (12) Cerebrovascular accident SNOMED Code(s): 397499776 ICD Code: I63.9 - CEREBRAL INFARCTION, UNSPECIFIED Status: Chronic Cu rrent Visit: No (13) Hypertension SNOMED Code(s): 69862133 ICD Code: I10 - ESSENTIAL (PRIMARY) HYPERTENSION Status: Acute Current Visit: Yes (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, insulin dependent SNOMED Code(s): 008059140 ICD Code: E11.9 - TYPE 2 DIABETES MELLITUS WITHOUT COMPLICATIONS; 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 DIRECTED Care 05/09/20 16:08 Active Vital Signs [RC] Q4H Care 05/09/20 21:53 Ordered Weight Daily [Height and Weight] [RC] DAILY Care 05/09/20 21:55 Ordered Chest 1V Frontal [CR] Stat Exams 05/09/20 17:17 Taken Head wo Cont [CT] Stat Exams 05/09/20 16:08 Taken BASIC METABOLIC PANEL,BMP [CHEM] AM Lab 05/10/20 05:11 Ordered CBC WITH MANUAL DIFF [HEME] AM Lab 05/10/20 05:11 Ordered CULTURE BLOOD [BC] Stat Lab 05/09/20 17:39 Received CULTURE BLOOD [BC] Stat Lab 05/09/20 18:00 Received MAGNESIUM [CHEM] AM Lab 05/10/20 05:11 Ordered OCCULT BLOOD DIAGNOSTIC [OP] Routine Lab 05/09/20 21:46 Ordered PHOSPHORUS [CHEM] AM Lab 05/10/20 05:11 Ordered PROCALCITONIN [REF] Routine Lab 05/09/20 21:52 Ordered TROPONIN I [CHEM] Routine Lab 05/09/20 21:45 Ordered Sodium Chloride 0.9% [Normal Saline] 1,000 ml Med 05/09/20 21:45 Ordered IV ASDIRECTED Sodium Chloride 0.9% [Saline Flush] Med 05/09/20 16:08 Active 10 ml FLUSH ASDIRECTED PRN Blood Culture x2 Reflex Set [OM.PC] Stat Oth 05/09/20 17:13 Ordered Peripheral IV Insertion Adult [OM.PC] Routine Oth 05/09/20 16:08 Ordered Resuscitation Status Routine Resus Stat 05/09/20 21:47 Ordered Medication Orders Sodium Chloride (Normal Saline) 1,000 mls @ 100 mls/hr IV ASDIRECTED [facility] Sodium Chloride (Saline Flush) 10 ml FLUSH ASDIRECTED PRN PRN Reason: Keep Vein Open Last Admin: 05/09/20 16:16 Dose: 10 ml Documented by: ALHAJI Assessment/Plan Comment:: Acute on chronic renal failure Dehydration Weakness Hyponatremia Baseline Cr 1.1, Creatinine today is 1.9 BUN 54 Sodium 132 PLAN - Starting NS running at 100ml/hr - BMP in AM Leukocytosis WBC 22.16, with left shift, no bands on smear Patient afebrile, HR and BP normal UA negative for infection chest x-ray w/ poor expansion but no obvious infection WBC on 05/04 was normal PLAN - Full skin evaluation for decubitus ulcers - Fluid resuscitation and recheck CBC in AM Expressive aphasia Will continue to monitor Patient states she feels no difference Eliquis was stopped 6 days ago PLAN - CT head pending- will follow results - Neuro checks q2h Anemia Patient had recent GI bleed requiring 2 units PRBCs Hgb 9.6 PLAN -Will trend CBC in AM Hypertension Patient on amlodipine 5mg oral qam, carvedilol 25mg oral BID and lisinopril 10mg qam. BP 120/54 PLAN - Continue amlodipine 5mg oral qam and carvedilol 25mg oral BID - Hold lisinopril Depression No acute issues PLAN -Continue Lexapro 20mg oral daily. CAD, s/p CABG x3 and endarterectomy Pt on aspirin 81mg oral daily Patient denies chest pain PLAN - Continue aspirin 81mg oral daily. - Troponin pending. Hx CVA Eliquis was stopped 6 days ago due to GI bleed PLAN - Follow results of head CT - Continue Aspirin 81mg oral dialy Diabetes mellitus type II, insulin dependent- HgbA1c 6.6% on 05/04 Home insulins of glargine 4units at night and glargine 10units qam Aspart 6 units TID Blood sugar 218 on admission PLAN - Continue glargine as prescribed - Fingerstick blood glucose at meals and 2 hours postprandial - Will adjust aspart depending on postprandial blood sugars - Dextrose 25g for BS <60 Hyperlipidemia Pravastatin 20mg oral qpm at home Lipid profile on 05/04 shows Cholesterol 175, LDL 92, HDL 58, triglycerides 105 PLAN -Hold pravastatin for now PROPHYLAXIS GI- Protonix 40mg oral BID DVT- aspirin 81mg daily, stockings bilaterally SOCIAL Patient is a resident of [facility]. She uses wheel chair to get around. DPOA is Houston Sutherland, pt's son. CODE STATUS DNR/DNI DISPOSITION The patient is admitted to the hospital for acute on chronic renal failure, increased weakness, and leukocytosis for further workup and management. Expected length of stay is between 2-3 days. - Mortality Measure Prognosis:: Poor
[2020-05-09] MEDS ORDERED: 50% Dextrose in Water 50 ML Syringe IVPUSH PRN (22:08)
[2020-05-09] MEDS ORDERED: traMADol 50 MG Tab PO PRN (22:11)
[2020-05-10] MEDS: Insulin Glarg,Human.Rec.Analog 100 Unit/ML SUBCUT SCH ×5 (00:40→21:02)
[2020-05-10] MEDS: Sodium Chloride 0.9% 1,000 ML IV SCH ×2 (00:43→14:21)
[2020-05-10] MEDS: Carvedilol 12.5 MG Tab PO SCH ×3 (00:43→21:01)
[2020-05-10] MEDS: Pantoprazole 40 MG Tab.CR PO SCH ×2 (05:52→15:59)
[2020-05-10] MEDS ORDERED: Aspirin 81 MG Tab.EC PO SCH (09:00)
--- NOTE | 2020-05-10 09:26 | CT ---
Head CT Technique: Multiple axial sections through the brain were obtained. Intravenous contrast was not utilized. Comparison: Prior head CT study of 05/02/20. Findings: Ventricles along with basal cisterns and sulci over the convexities are mildly prominent. Old infarct is noted overlying the right frontal convexity. No other abnormal parenchymal densities are seen. No evidence of intracranial hemorrhage. No midline shift or mass-effect is seen. Bone window settings were reviewed. Visualized mastoid sinuses and visualized paranasal sinuses show nothing acute. No acute calvarial abnormality is appreciated. Impression: 1. Senescent change as described above. 2. Nothing acute is appreciated on noncontrast head CT study. Diagnostic code #2 This report was dictated in MDT I agree with preliminary report from Dana, finalized on 05/09/20, 5:43 PM Central Daylight Time
--- NOTE | 2020-05-10 09:26 | CR ---
Chest: Portable supine view of the chest was obtained. Comparison: Prior chest x-ray of 05/17/18. Previous sternotomy is noted. Prosthetic heart valve is seen. Surgical clips are also noted within the upper right abdomen. Heart is mildly enlarged. Lungs are clear with no acute parenchymal change. Bony structures are grossly intact. Surgical clips are noted within the left neck. Impression: 1. Findings as noted above. 2. Nothing acute is appreciated. Diagnostic code #2 This report was dictated in MDT
[2020-05-10] MEDS: Citalopram 20 MG Tab PO SCH (09:45)
--- NOTE | 2020-05-10 12:10 | PCM.PN ---
- General Info Date of Service: 05/10/20 Admission Dx/Problem (Free Text): Admission Diagnosis/Problem Admission Diagnosis/Problem Expressive aphasia Subjective Update: The patient is seen by me at bedside. Today she feels more tired and weaker than yesterday. Decreased appetite. She denies chest pain, palpitations, shortness of breath, changes in vision, dizziness or lightheadedness. No BM overnight. - Patient Data Vitals - Most Recent: Last Vital Signs Temp 98.3 F 05/10/20 01:53 Pulse 75 05/10/20 09:45 Resp 16 05/10/20 01:53 BP 121/48 L 05/10/20 09:45 Pulse Ox 94 L 05/10/20 09:03 Weight - Most Recent: 176 lb - Exam General: Cooperative, Other (in and out of sleep, face is pale) HEENT: Pupils Equal, Pupils Reactive Lungs: Clear to Auscultation, Normal Respiratory Effort Cardiovascular: Regular Rate, Regular Rhythm. No: No Murmurs GI/Abdominal Exam: Soft, Non-Tender, Other (hypoactive bowel sounds) Extremities: Normal Inspection, No Pedal Edema, Normal Capillary Refill Peripheral Pulses: 2+: Posterior Tibial (L), Posterior Tibial (R) Skin: Warm, Dry, Intact Neurological: No New Focal Deficit Psy/Mental Status: Alert, Normal Affect Sepsis Event Note - Evaluation Sepsis Screening Result: No Definite Risk - Problem List & Annotations (1) Leukocytosis SNOMED Code(s): 332526320, 096637409 Code(s): D72.829 - ELEVATED WHITE BLOOD CELL COUNT, UNSPECIFIED Status: Acute Current Visit: Yes (2) Acute renal failure SNOMED Code(s): 07628912 Code(s): N17.9 - ACUTE KIDNEY FAILURE, UNSPECIFIED Status: Acute Current Visit: Yes (3) Hyponatremia SNOMED Code(s): 68560659 Code(s): E87.1 - HYPO-OSMOLALITY AND HYPONATREMIA Status: Acute Current Visit: Yes (4) Dehydration SNOMED Code(s): 58556667 Code(s): E86.0 - DEHYDRATION Status: Acute Current Visit: Yes (5) Weakness SNOMED Code(s): 90586351 Code(s): R53.1 - WEAKNESS Status: Acute Priority: High Current Visit: No (6) Anemia SNOMED Code(s): 210671081 Code(s): D64.9 - ANEMIA, UNSPECIFIED Status: Acute Priority: High Current Visit: No Qualifiers: Anemia type: iron deficiency (7) CAD (coronary artery disease) SNOMED Code(s): 73888717 Code(s): I25.10 - ATHSCL HEART DISEASE OF [place] CORONARY ARTERY W/O ANG PCTRS Status: Acute Current Visit: Yes (8) Expressive aphasia SNOMED Code(s): 873559080, 026798644 Code(s): R47.01 - APHASIA Status: Acute Current Visit: No (9) Depression SNOMED Code(s): 03781416 Code(s): F32.9 - MAJOR DEPRESSIVE DISORDER, SINGLE EPISODE, UNSPECIFIED Status: Acute Current Visit: Yes (10) Anxiety SNOMED Code(s): 96581633 Code(s): F41.9 - ANXIETY DISORDER, UNSPECIFIED Status: Acute Current Visit: Yes (11) Hx of CABG SNOMED Code(s): 848977585, 184282520 Code(s): Z95.1 - PRESENCE OF AORTOCORONARY BYPASS GRAFT Status: Acute Current Visit: Yes (12) Cerebrovascular accident SNOMED Code(s): 022014793 Code(s): I63.9 - CEREBRAL INFARCTION, UNSPECIFIED Status: Chronic Current Visit: No (13) Hypertension SNOMED Code(s): 62554833 Code(s): I10 - ESSENTIAL (PRIMARY) HYPERTENSION Status: Acute Current Visit: Yes (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, insulin dependent SNOMED Code(s): 930006820 Code(s): E11.9 - TYPE 2 DIABETES MELLITUS WITHOUT COMPLICATIONS; 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 Status: Acute Current Visit: Yes - Problem List Review Problem List Initiated/Reviewed/Updated: Yes - Assessment Assessment:: 05/09/2020 Baseline Cr 1.1, Creatinine today is 1.9 BUN 54 Sodium 132 WBC 22.16, with left shift, no bands on smear Patient afebrile, HR and BP normal UA negative for infection chest x-ray w/ poor expansion but no obvious infection WBC on 05/04 was normal Eliquis was stopped 6 days ago Recent GI bleed requiring 2 units PRBCs Hgb 9.6 Patient on amlodipine 5mg oral qam, carvedilol 25mg oral BID and lisinopril 10mg qam at home BP 120/54 Pt on aspirin 81mg oral daily Denies chest pain Eliquis was stopped 6 days ago due to GI bleed Home insulins of glargine 4units at night and glargine 10units qam Aspart 6 units TID Blood sugar 218 on admission Pravastatin 20mg oral qpm at home Lipid profile on 05/04 shows Cholesterol 175, LDL 92, HDL 58, triglycerides 105 PLAN - Starting NS running at 100ml/hr - BMP in AM - Full skin evaluation for decubitus ulcers - Fluid resuscitation and recheck CBC in AM - CT head pending- will follow results - Will trend CBC in AM - Continue amlodipine 5mg oral qam and carvedilol 25mg oral BID - Hold lisinopril - Continue Lexapro 20mg oral daily. - Continue aspirin 81mg oral daily. - Troponin was <0.017 - Follow results of head CT - Continue Aspirin 81mg oral daily - Continue glargine 4units qpm, 10 units in AM - Fingerstick blood glucose at meals and 2 hours postprandial - Will adjust aspart depending on postprandial blood sugars - Dextrose 25g for BS <60 - Hold pravastatin for now - GI- Protonix 40mg oral BID 05/10/2020 Patient pale and more drowsy BP min 114/52, BP max 149/54, pulse 82 No BM since admit Hgb 8.9 down from 9.8 WBC 18.10 down from 22.10 Sodium 135 up from 132 BUN 46 down from 54, Creatinine 1.3 down from 1.9 Blood sugars 131 and [address] is with old infarct R frontal region, no acute abnormality CXR shows previous sternotomy, mild heart enlargement, no acute cardiopulmonary process - Plan Plan:: Acute on chronic renal failure Dehydration Weakness Hyponatremia - Decrease NS to rate 50ml/hr - BMP in AM Leukocytosis - Full skin evaluation for decubitus ulcers - Fluid resuscitation and recheck CBC in AM Anemia - Repeat H/H this afternoon. - Vital signs q4h. - Protonix 40mg oral BID - Stop aspirin - Stool occult ordered Hypertension - Continue carvedilol 25mg oral BID - Hold lisinopril and amlodipine Diabetes mellitus type II, insulin dependent- HgbA1c 6.6% on 08/13 - Continue glargine as prescribed - Fingerstick blood glucose at meals and 2 hours postprandial - Will adjust aspart depending on postprandial blood sugars - Dextrose 25g for BS <60 Depression -Continue Lexapro 20mg oral daily. CAD, s/p CABG x3 and endarterectomy Hx CVA Expressive aphasia Hyperlipidemia - Continue pravastatin - Stop Aspirin due to anemia, hx recent GI bleed PROPHYLAXIS GI- Protonix 40mg oral BID DVT- aspirin 81mg daily, stockings bilaterally CODE STATUS DNR/DNI DISPOSITION The patient is admitted to the hospital for acute on chronic renal failure, increased weakness, anemia, and leukocytosis for further workup and management. Expected length of stay is between 1-2 days.
[2020-05-10] MEDS ORDERED: Magnesium Hydroxide 400 MG/5 ML Susp 30 ML Cup PO PRN (23:32)
[2020-05-11] MEDS: Pantoprazole 40 MG Tab.CR PO SCH (05:41)
[2020-05-11] MEDS ORDERED: Phosphorus #1 250 MG Tab PO ONE ×2 (08:44→11:12)
[2020-05-11] MEDS ORDERED: Psyllium Husk Powder Sugar Free 3.4 GM Packet PO SCH (09:00)
[2020-05-11] MEDS: Citalopram 20 MG Tab PO SCH (09:08)
[2020-05-11] MEDS: Insulin Glarg,Human.Rec.Analog 100 Unit/ML SUBCUT SCH (09:08)
[2020-05-11] MEDS: Carvedilol 12.5 MG Tab PO SCH (09:08)
[2020-05-11] MEDS ORDERED: Psyllium Husk Powder Sugar Free 5.85 GM Packet PO SCH (09:15)
--- NOTE | 2020-05-11 10:59 | PCM.DCSUM1 ---
Discharge Summary - Hospital Course HPI Initial Comments: The patient is a 60 yo female who resides at [facility]. The patient had recent hospitalization on 05/02 where she was found with GI bleed, low hgb and given 2 units of PRBCs which improved symptoms and patient was discharged, home eliquis stopped. The patient was brought to the ED today after nursing staff noticed patient had increased slurred speech and increased weakness. detention reports the patient had UA performed which was negative but patient was found with elevated WBC of 23.1 at [facility]. The patient does have a history of stroke in 2018 after carotid endarterectomy. She states this does not feel like a stroke to her. She does not feel weakness on one side or the other. She denies dizziness or lightheadedness. She does not notice she is slurring her words more. She does feel increased tired. Denies shortness of breath, chest pain, abdominal pain. Denies recent diarrhea or blood in stools. Diagnosis: Stroke: No - Discharge Data Discharge Date: 05/11/20 Discharge Disposition: DC/Tfer to [facility] Condition: Good - Referral to Home Health Primary Care Physician: Estrada Marinelli MD - Discharge Diagnosis/Problem(s) (1) Leukocytosis SNOMED Code(s): 998337499, 702801743 ICD Code: D72.829 - ELEVATED WHITE BLOOD CELL COUNT, UNSPECIFIED Status: Acute Current Visit: Yes (2) Acute renal failure SNOMED Code(s): 53647222 ICD Code: N17.9 - ACUTE KIDNEY FAILURE, UNSPECIFIED Status: Acute Current Visit: Yes (3) Hyponatremia SNOMED Code(s): 36929427 ICD Code: E87.1 - HYPO-OSMOLALITY AND HYPONATREMIA Status: Acute Current Visit: Yes (4) Dehydration SNOMED Code(s): 88002798 ICD Code: E86.0 - DEHYDRATION Status: Acute Current Visit: Yes (5) Weakness SNOMED Code(s): 70984493 ICD Code: R53.1 - WEAKNESS Status: Acute Priority: High Current Visit: No (6) Anemia SNOMED Code(s): 224140974 ICD Code: D64.9 - ANEMIA, UNSPECIFIED Status: Acute Priority: High Current Visit: No Qualifiers: Anemia type: iron deficiency (7) CAD (coronary artery disease) SNOMED Code(s): 06248367 ICD Code: I25.10 - ATHSCL HEART DISEASE OF [place] CORONARY ARTERY W/O ANG PCTRS Status: Acute Current Visit: Yes (8) Expressive aphasia SNOMED Code(s): 301761618, 375360539 ICD Code: R47.01 - APHASIA Status: Acute Current Visit: No (9) Depression SNOMED Code(s): 21594700 ICD Code: F32.9 - MAJOR DEPRESSIVE DISORDER, SINGLE EPISODE, UNSPECIFIED Status: Acute Current Visit: Yes (10) Anxiety SNOMED Code(s): 08309577 ICD Code: F41.9 - ANXIETY DISORDER, UNSPECIFIED Status: Acute Current Visit: Yes (11) Hx of CABG SNOMED Code(s): 998062007, 537321872 ICD Code: Z95.1 - PRESENCE OF AORTOCORONARY BYPASS GRAFT Status: Acute Current Visit: Yes (12) Cerebrovascular accident SNOMED Code(s): 539497396 ICD Code: I63.9 - CEREBRAL INFARCTION, UNSPECIFIED Status: Chronic Current Visit: No (13) Hypertension SNOMED Code(s): 92698298 ICD Code: I10 - ESSENTIAL (PRIMARY) HYPERTENSION Status: Acute Current Visit: Yes (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, insulin dependent SNOMED Code(s): 825205700 ICD Code: E11.9 - TYPE 2 DIABETES MELLITUS WITHOUT COMPLICATIONS; Z79.4 - USP (CURRENT) USE OF INSULIN Status: Acute Current Visit: Yes (15) Hypophosphatemia SNOMED Code(s): 4391779 ICD Code: E83.39 - OTHER DISORDERS OF PHOSPHORUS METABOLISM Status: Acute Current Visit: Yes - Patient Summary/Data Hospital Course: 05/09/2020 Baseline Cr 1.1, Creatinine today is 1.9 BUN 54 Sodium 132 WBC 22.16, with left shift, no bands on smear Patient afebrile, HR and BP normal UA negative for infection chest x-ray w/ poor expansion but no obvious infection WBC on 05/04 was normal Eliquis was stopped 6 days ago Recent GI bleed requiring 2 units PRBCs Hgb 9.6 Patient on amlodipine 5mg oral qam, carvedilol 25mg oral BID and lisinopril 10mg qam at home BP 120/54 Pt on aspirin 81mg oral daily Denies chest pain Eliquis was stopped 6 days ago due to GI bleed Home insulins of glargine 4units at night and glargine 10units qam Aspart 6 units TID Blood sugar 218 on admission Pravastatin 20mg oral qpm at home Lipid profile on 05/04 shows Cholesterol 175, LDL 92, HDL 58, triglycerides 105 PLAN - Starting NS running at 100ml/hr - BMP in AM - Full skin evaluation for decubitus ulcers - Fluid resuscitation and recheck CBC in AM - CT head pending- will follow results - Will trend CBC in AM - Continue amlodipine 5mg oral qam and carvedilol 25mg oral BID - Hold lisinopril - Continue Lexapro 20mg oral daily. - Continue aspirin 81mg oral daily. - Troponin was <0.017 - Follow results of head CT - Continue Aspirin 81mg oral daily - Continue glargine 4units qpm, 10 units in AM - Fingerstick blood glucose at meals and 2 hours postprandial - Will adjust aspart depending on postprandial blood sugars - Dextrose 25g for BS <60 - Hold pravastatin for now - GI- Protonix 40mg oral BID 05/10/2020 Patient pale and more drowsy BP min 114/52, BP max 149/54, pulse 82 No BM since admit Hgb 8.9 down from 9.8 WBC 18.10 down from 22.10 Sodium 135 up from 132 BUN 46 down from 54, Creatinine 1.3 down from 1.9 Blood sugars 131 and [address] is with old infarct R frontal region, no acute abnormality CXR shows previous sternotomy, mild heart enlargement, no acute cardiopulmonary process PLAN - Decrease NS to rate 50ml/hr - BMP in AM - Full skin evaluation for decubitus ulcers - Fluid resuscitation and recheck CBC in AM - Repeat H/H this afternoon. - Vital signs q4h. - Protonix 40mg oral BID - Stop aspirin - Stool occult ordered - Continue carvedilol 25mg oral BID - Hold lisinopril and amlodipine - Continue glargine as prescribed - Fingerstick blood glucose at meals and 2 hours postprandial - Will adjust aspart depending on postprandial blood sugars - Dextrose 25g for BS <60 -Continue Lexapro 20mg oral daily. - Continue pravastatin - Stop Aspirin due to anemia, hx recent GI bleed - Patient Instructions Diet: Diabetic Diet Diet, Other: ENCOURAGE FLUID INTAKE Activity: As Tolerated Activity, Other: Use walker with ambulation, continue to work with PT Wound/Incision, Other: Dressing applied to small wound on abdomen. Keep in place until 05/13/2020 Notify Provider of: Fever, Nausea and/or Vomiting Other/Special Instructions: Patient needs to remain well hydrated. Enemas to be given every other day for no BM. Decreasing Lisinopril from 20mg oral daily to 10mg oral daily. - Discharge Plan *PRESCRIPTION DRUG MONITORING PROGRAM REVIEWED*: No *COPY OF PRESCRIPTION DRUG MONITORING REPORT IN PATIENT AXEL: No Prescriptions/Med Rec: Nystatin [Nystatin Crm] 1 gm TOP BID 7 Days #1 tube lisinopriL [Prinivil] 10 mg PO DAILY 30 Days #30 tab Home Medications: Home Meds Pravastatin [Pravachol] 20 mg PO QPM 07/21/18 [History] amLODIPine Besylate [Amlodipine Besylate] 5 mg PO DAILY 07/21/18 [History] carvediloL [Carvedilol] 25 mg PO BID 07/21/18 [History] Acetaminophen [Tylenol Arthritis] 650 mg PO QID 05/02/20 [History] Acetaminophen [Tylenol] 650 mg PO BID PRN 05/02/20 [History] Escitalopram Oxalate [Lexapro] 20 mg PO DAILY 05/02/20 [History] Insulin Aspart [NovoLOG] 6 unit SUBCUT TID 05/02/20 [History] Insulin Glargine,Hum.Rec.Anlog [Lantus Solostar] 4 units SUBCUT BEDTIME 05/02/20 [History] Solifenacin Succinate 10 mg PO QPM 05/02/20 [History] traMADol [Ultram] 50 mg PO TID 05/02/20 [History] Pantoprazole Sodium [Protonix] 40 mg PO BID #60 tablet.dr 05/04/20 [Rx] Aspirin [Halfprin] 81 mg PO DAILY 05/09/20 [History] Nystatin [Nystatin Crm] 1 gm TOP BID 7 Days #1 tube 05/11/20 [Rx] lisinopriL [Prinivil] 10 mg PO DAILY 30 Days #30 tab 05/11/20 [Rx] Forms: ED Department Discharge Referrals: Estrada Marinelli MD [Primary Care Provider] - - Discharge Summary/Plan Comment DC Time >30 min.: Yes Discharge Summary/Plan Comment: Pt is more alert. PT working with patient this morning. She is eating and drinking well. Vitals stable, WBC trending down. Cr now 1.1 - baseline. Phos is 2.5 Intertrigo is improving. PLAN - Replaced phosphorus - Encourage fluid intake at [facility] - Decrease lisinopril 20mg daily to 10mg daily - Nystatin cream for intertrigo- keep cool and dry - General Info Date of Service: 05/11/20 Admission Dx/Problem (Free Text: Admission Diagnosis/Problem Admission Diagnosis/Problem Expressive aphasia Subjective Update: Pt has had small/medium BM. She is more alert and consumed 100% of meals. She is drinking well. Denies nausea, vomiting. Denies chest pain, shortness of breath. States she is feeling much better. No dizziness or headache. Is in understanding about need to stay hydrated at [facility]. - Patient Data Vitals - Most Recent: Last Vital Signs Temp 98.1 F 05/11/20 04:11 Pulse 70 05/11/20 09:08 Resp 18 05/11/20 08:00 BP 115/63 05/11/20 09:08 Pulse Ox 94 L 05/11/20 08:00 Weight - Most Recent: 172 lb 3.2 oz I&O - Last 24 hours: Intake & Output 05/10/20 05/11/20 05/11/20 22:59 06:59 14:59 Intake Total 3012 720 120 Output Total 300 700 Balance 2712 20 120 Lab Results - Last 24 hrs: Laboratory Results - last 24 hr 05/10/20 05/10/20 05/10/20 Range/Units 05:38 10:53 12:30 WBC (3.98-10.04) K/mm3 RBC (3.98-5.22) M/mm3 Hgb 9.4 L (11.2-15.7) gm/dl Hct 30.9 L (34.1-44.9) % MCV (79.4-94.8) fl MCH (25.6-32.2) pg MCHC (32.2-35.5) g/dl RDW Std Deviation (36.4-46.3) fL Plt Count (182-369) K/mm3 MPV (9.4-12.3) fl Neut % (Auto) (34.0-71.1) % Lymph % (Auto) (19.3-51.7) % [place] % (Auto) (4.7-12.5) % Eos % (Auto) (0.7-5.8) Baso % (Auto) (0.1-1.2) % Neut # (Auto) (1.56-6.13) K/mm3 Lymph # (Auto) (1.18-3.74) K/mm3 [place] # (Auto) (0.24-0.36) K/mm3 Eos # (Auto) (0.04-0.36) K/mm3 Baso # (Auto) (0.01-0.08) K/mm3 Manual Slide Review Sodium (136-145) mEq/L Potassium (3.5-5.1) mEq/L Chloride (98-107) mEq/L Carbon Dioxide (21-32) mEq/L Anion Gap (5-15) BUN (7-18) mg/dL Creatinine (0.55-1.02) mg/dL Est Cr Clr Drug Dosing mL/min Estimated GFR (MDRD) (>60) mL/min BUN/Creatinine Ratio (14-18) Glucose (80-115) mg/dL POC Glucose 131 H (80-115) mg/dL Calcium (8.5-10.1) mg/dL Phosphorus (2.6-4.7) mg/dL Magnesium (1.8-2.4) mg/dl Procalcitonin 5.70 H (<0.10) ng/mL 05/10/20 05/11/20 05/11/20 Range/Units 20:27 05:15 05:15 WBC 14.37 H (3.98-10.04) K/mm3 RBC 3.32 L (3.98-5.22) M/mm3 Hgb 8.8 L (11.2-15.7) gm/dl Hct 29.1 L (34.1-44.9) % MCV 87.7 (79.4-94.8) fl MCH 26.5 (25.6-32.2) pg MCHC 30.2 L (32.2-35.5) g/dl RDW Std Deviation 48.9 H (36.4-46.3) fL Plt Count 345 (182-369) K/mm3 MPV 10.5 (9.4-12.3) fl Neut % (Auto) 88.8 H (34.0-71.1) % Lymph % (Auto) 3.8 L (19.3-51.7) % [place] % (Auto) 6.8 (4.7-12.5) % Eos % (Auto) 0.2 L (0.7-5.8) Baso % (Auto) 0.1 (0.1-1.2) % Neut # (Auto) 12.77 H (1.56-6.13) K/mm3 Lymph # (Auto) 0.54 L (1.18-3.74) K/mm3 [place] # (Auto) 0.98 H (0.24-0.36) K/mm3 Eos # (Auto) 0.03 L (0.04-0.36) K/mm3 Baso # (Auto) 0.01 (0.01-0.08) K/mm3 Manual Slide Review Abnormal smear Sodium 137 (136-145) mEq/L Potassium 3.5 (3.5-5.1) mEq/L Chloride 103 (98-107) mEq/L Carbon Dioxide 26 (21-32) mEq/L Anion Gap 11.5 (5-15) BUN 26 H (7-18) mg/dL Creatinine 1.1 H (0.55-1.02) mg/dL Est Cr Clr Drug Dosing 38.09 mL/min Estimated GFR (MDRD) 50 (>60) mL/min BUN/Creatinine Ratio 23.6 H (14-18) Glucose 139 H (80-115) mg/dL POC Glucose 281 H (80-115) mg/dL Calcium 8.3 L (8.5-10.1) mg/dL Phosphorus 1.8 L (2.6-4.7) mg/dL Magnesium 1.9 (1.8-2.4) mg/dl Procalcitonin (<0.10) ng/mL 05/11/20 Range/Units 06:58 WBC (3.98-10.04) K/mm3 RBC (3.98-5.22) M/mm3 Hgb (11.2-15.7) gm/dl Hct (34.1-44.9) % MCV (79.4-94.8) fl MCH (25.6-32.2) pg MCHC (32.2-35.5) g/dl RDW Std Deviation (36.4-46.3) fL Plt Count (182-369) K/mm3 MPV (9.4-12.3) fl Neut % (Auto) (34.0-71.1) % Lymph % (Auto) (19.3-51.7) % [place] % (Auto) (4.7-12.5) % Eos % (Auto) (0.7-5.8) Baso % (Auto) (0.1-1.2) % Neut # (Auto) (1.56-6.13) K/mm3 Lymph # (Auto) (1.18-3.74) K/mm3 [place] # (Auto) (0.24-0.36) K/mm3 Eos # (Auto) (0.04-0.36) K/mm3 Baso # (Auto) (0.01-0.08) K/mm3 Manual Slide Review Sodium (136-145) mEq/L Potassium (3.5-5.1) mEq/L Chloride (98-107) mEq/L Carbon Dioxide (21-32) mEq/L Anion Gap (5-15) BUN (7-18) mg/dL Creatinine (0.55-1.02) mg/dL Est Cr Clr Drug Dosing mL/min Estimated GFR (MDRD) (>60) mL/min BUN/Creatinine Ratio (14-18) Glucose (80-115) mg/dL POC Glucose 146 H (80-115) mg/dL Calcium (8.5-10.1) mg/dL Phosphorus (2.6-4.7) mg/dL Magnesium (1.8-2.4) mg/dl Procalcitonin (<0.10) ng/mL - Exam General: Reports: Alert, Oriented, Cooperative, Other (Sitting up in chair) HEENT: Reports: Pupils Equal, Pupils Reactive, EOMI Lungs: Reports: Clear to Auscultation, Normal Respiratory Effort. Denies: Rales, Rhonchi, Rub Cardiovascular: Reports: Regular Rate, Regular Rhythm. Denies: Murmurs, Rubs GI/Abdominal Exam: Other (hypoactive bowel sounds. Mid abdomen there is intertrigo, does not appear infected at this point, just slightyly erythematous, no warmth. ) Extremities: Non-Tender, No Pedal Edema, Normal Capillary Refill Skin: Reports: Warm, Dry, Intact Neurological: Reports: No New Focal Deficit, Other (Patient is much more alert. She follows commands well. Slurred speech is less. No facial drooping. Pt able to puff out cheeks, raise eyebrows bilaterally. 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
[2020-05-11 16:37] VITALS: BP 142/92; PULSE 72
== END 2020-05-11 13:45 ==
LOC: JD.ED 15:13 → JD.MS 21:17
PROVIDERS: ADMIT Internal Medicine; ATTEND Internal Medicine
DX: N17.9 Acute kidney failure, unspecified (principal); E87.1 Hypo-osmolality and hyponatremia; D72.829 Elevated white blood cell count, unspecified; E86.0 Dehydration; E78.00 Pure hypercholesterolemia, unspecified; K21.9 Gastro-esophageal reflux disease without esophagitis; F41.9 Anxiety disorder, unspecified; F32.9 Major depressive disorder, single episode, unspecified; D50.9 Iron deficiency anemia, unspecified; E83.39 Other disorders of phosphorus metabolism; I25.10 Atherosclerotic heart disease of native coronary artery without angina pectoris; R47.01 Aphasia; E11.22 Type 2 diabetes mellitus with diabetic chronic kidney disease; I12.9 Hypertensive chronic kidney disease with stage 1 through stage 4 chronic kidney disease, or unspecified chronic kidney disease; N18.9 Chronic kidney disease, unspecified; Z20.828 Contact with and (suspected) exposure to other viral communicable diseases; Z66 Do not resuscitate; Z88.8 Allergy status to other drugs, medicaments and biological substances; Z79.899 Other long term (current) drug therapy; Z79.4 Long term (current) use of insulin; Z95.1 Presence of aortocoronary bypass graft; Z86.73 Personal history of transient ischemic attack (TIA), and cerebral infarction without residual deficits; Z79.82 Long term (current) use of aspirin; Z87.19 Personal history of other diseases of the digestive system
CPT/HCPCS: 36415; 70450; 71045; 80048; 80053; 81001; 82962; 83605; 83735; 84100; 84145; 84484; 85007; 85014; 85018; 85025; 85027; 87040; 87635; 87641; 96360; 96361; 99285; A9270; G0378; J1815; J7030; 99284; U0002

== ENCOUNTER 2020-11-07 17:36 | Emergency (ER) | payer MEDICAID ==
[2020-11-07] MEDS ORDERED: Dextrose 5%-0.9% NaCl 1,000 ML IV SCH (17:45)
--- NOTE | 2020-11-07 17:47 | EDM.PDOC ---
<Mustapha Guzmán Milla - Last Filed: 11/07/20 20:18> ED HPI GENERAL MEDICAL PROBLEM - General Chief Complaint: Neuro Symptoms/Deficits Stated Complaint: [facility] Time Seen by Provider: 11/07/20 17:39 - Related Data Allergies Allergy/AdvReac Type Severity Reaction Status Date / Time adhesive tape Allergy Rash Verified 11/07/20 18:34 simvastatin [From Zocor] AdvReac Muscle Verified 11/07/20 18:34 Aches Jsekzas-Fhe-Tog Reductase AdvReac Muscle Verified 11/07/20 18:34 Inhibitor Aches Home Meds: Home Meds Pravastatin [Pravachol] 20 mg PO QPM 07/21/18 [History] carvediloL [Carvedilol] 25 mg PO BID 07/21/18 [History] Acetaminophen [Tylenol Arthritis] 650 mg PO QID 05/02/20 [History] Escitalopram Oxalate [Lexapro] 20 mg PO DAILY 05/02/20 [History] Insulin Aspart [NovoLOG] 6 unit SUBCUT TID 05/02/20 [History] Insulin Glargine,Hum.Rec.Anlog [Lantus Solostar] 4 units SUBCUT BEDTIME 05/02/20 [History] Solifenacin Succinate 10 mg PO QPM 05/02/20 [History] traMADol [Ultram] 50 mg PO TID 05/02/20 [History] Aspirin [Halfprin] 81 mg PO DAILY 05/09/20 [History] Insulin Glarg,Human.Rec.Analog [Lantus Solostar] 10 unit SUBCUT DAILY #2 pen 05/11/20 [Rx] lisinopriL [Prinivil] 10 mg PO DAILY 30 Days #30 tab 05/11/20 [Rx] amLODIPine [Norvasc] 2.5 mg PO DAILY 11/07/20 [History] Course - Re-Assessments/Exams Free Text/Narrative Re-Assessment/Exam: 11/07/20 20:18 Assumed care at change of shift from Dr. Bains. Patient is feeling well at this time we will recheck a blood sugar and see how she is doing before letting her go back to the senior living. 11/07/20 20:23 Patient's blood sugar on Accu-Chek is 308 a few minutes ago however will let this come down on its own. Departure - Departure Time of Disposition: 20:23 Disposition: DC/Tfer to [facility] Clinical Impression: Hypoglycemic episode in patient with diabetes mellitus, Insulin reaction - Discharge Information Instructions: Hypoglycemia Referrals: PCP,Unknown [Ordering Only Provider] - Forms: ED Department Discharge Additional Instructions: Return to the emergency room with any questions problems or worsening symptoms. Continue routine medications. Her blood sugar is a little high leaving the emergency department but once everything stabilizes and she gets back on her routine meds this should improve. Be certain to feed very soon after receiving insulin. <Mani Sims - Last Filed: 11/08/20 07:09> ED HPI GENERAL MEDICAL PROBLEM - General Source of Information: Reports: Patient, EMS, Long Term Records History Limitations: Reports: Altered Mental Status (Paramedics indicated the patient was very confused and almost acting postictal when she started to come around. She is speaking much better apparently when she reached the emergency room. She reports she has been diabetic for greater than 10 years. She did receive insulin before supper but had not eaten any supper yet.) - History of Present Illness INITIAL COMMENTS - FREE TEXT/NARRATIVE: 60-year-old female who is a resident of [facility] presents to the ED per [facility]. They were summoned to the facility after the patient apparently went unresponsive after receiving insulin injection for supper meal. Unfortunately she never got to eat her supper meal as it did not arrive in time. The thinking is that she developed a severe hypoglycemic event precipitating unresponsiveness and it is unclear whether or not there was any seizure activity. She had received several doses of glucagon and oral glucose at the senior living and was starting to arouse once the paramedics got there. Apparently her blood sugar initially was reportedly 57. Upon arrival in the ED it was 173. Her speech has slowly improved and the patient is now alert and answers questions appropriately. She does seem to hold her left hand on her abdomen suspicious for left sided weakness or hemiparesis. 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 She also underwent a triple bypass in June 2018. She reports she has been diabetic for greater than 15 years. She used to be controlled with oral medications but now is controlled with orals and insulin. Her medics never did give her any D50. The medication notes indicate the patient usually receives 6 units of regular insulin subcu 3 times daily before each meal. She receives long-acting Lantus insulin 4 units at bedtime. Onset: Today, Sudden Onset Date: 11/07/20 Onset Time: 17:00 Duration: Minutes:, Improving (Cognitive function is improving in route to hospital as she was hardly able to) Location: Reports: Generalized ( speak and make sense at all according to paramedics and now is able to speak in full sentences and answer questions appropriately. Apparently loss of consciousness believed to be secondary to an insulin reaction at the senior living with a blood sugar reported to be 57. After glucose and other meds were given to her her blood sugar came up to around 173 according to the paramedics upon arrival in the ED. She did not receive any dextrose by the paramedics.) Quality: Reports: Other (Fairly found unresponsive after receiving insulin injection prior to arrival of her supper meal. It is unclear whether or not there was any seizure activity.) Severity: Severe Improves with: Reports: Other (Improved with oral glucose given to the patient prior to arrival of paramedics.) Worsens with: Reports: None Context: Reports: Other (Insulin reaction at the senior living. She was given subcu insulin before her supper meal and had not yet been able to eat.). 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 Insulin given subcu prior to) Past Medical History HEENT History: Reports: Cataract, Impaired Vision Other HEENT History: patient states wears glasses but not here Cardiovascular History: Reports: Bypass (She had triple bypass in June 2018), CAD, Heart Failure, High Cholesterol, Hypertension, Other (See Below). Denies: Cardiomyopathy, Heart Murmur Other Cardiovascular History: Left Carotid Artery is occluded. Respiratory History: Reports: None Gastrointestinal History: Reports: Chronic Diarrhea, GERD Other Gastrointestinal History: per prior hospital H&P/SNF diagnosis list Genitourinary History: Reports: Chronic Renal Insuffiency, Urinary Incontinence, Other (See Below) Other Genitourinary History: states kidneys are failing MATH AND PHYSICS INSTRUCTOR History: Reports: None Musculoskeletal History: Reports: Arthritis, Other (See Below) Other Musculoskeletal History: generalized muscle weakness, unsteadiness on feet, pain in R knee, pain in R shoulder, displaced bicondylar fracture of right tibia Neurological History: Reports: CVA (Clinically the patient has a left-sided hemiparesis I believe is a residual of failed left carotid endarterectomy in 2018.) Psychiatric History: Reports: Anxiety, Depression, Mood Swings, Other (See Below) Other Psychiatric History: "amnesia, memory deficit." Endocrine/Metabolic History: Reports: Diabetes, Type I, Diabetes, Type II Hematologic History: Reports: Iron Deficiency Immunologic History: Reports: None Oncologic (Cancer) History: Reports: None - Infectious Disease History Infectious Disease History: Reports: Chicken Pox, Measles, Mumps Other Infectious Disease History: from prior admit hx - Past Surgical History HEENT Surgical History: Reports: Cataract Surgery GI Surgical History: Reports: Bariatric Procedure, Cholecystectomy, Other (See Below) Dermatological Surgical History: Reports: Plastic Surgical Reconstruction/Repair Social & Family History - Family History Family Medical History: No Pertinent Family History - Caffeine Use Caffeine Use: Reports: Coffee - Living Situation & Occupation Living situation: Reports: Single, Extended Care Facility (Currently residing at [facility]) Occupation: Disabled ED ROS GENERAL - Review of Systems Review Of Systems: See Below Constitutional: Reports: Malaise, Weakness, Fatigue. Denies: Fever, Chills HEENT: Reports: Glasses Respiratory: Reports: No Symptoms Cardiovascular: Reports: Blood Pressure Problem, Edema. Denies: Claudication, Orthopnea Endocrine: Reports: Fatigue GI/Abdominal: Reports: Constipation : Reports: Frequency, Incontinence (General stress components.), Other (She has a spastic bladder and takes solifenacin to help with urinary incontinence.) Musculoskeletal: Reports: Other (I believe she is exhibiting left-sided hemiparesis is unclear whether this is acute or chronic. She appears to have flexion contracture of the left foot and left knee is held primarily in extension. She prefers to hold her left hand mid chest.) Skin: Reports: No Symptoms Neurological: Reports: Dizziness (Occasional dizziness.) Psychiatric: Reports: No Symptoms Hematologic/Lymphatic: Reports: No Symptoms Immunologic: Reports: No Symptoms ED EXAM, NEURO - Physical Exam Exam: See Below Exam Limited By: No Limitations (She was starting to speak in full sentences and could answer questions appropriately once she arrived in the ED with her blood sugar elevated at 173. Apparently her speech was very dysarthric and hard to understand according to paramedics when they first picked her up at the senior living.) General Appearance: No Apparent Distress, Lethargic (Late lethargic.), Other (Temperature is 36.4 and her skin actually feels quite cool to touch. Heart rate was 77 and sinus respiratory is 14 with O2 sats of 99% room air BP slightly elevated at 142/66.) Eye Exam: Bilateral Eye: Normal Inspection, PERRL Throat/Mouth: Normal Inspection, Normal Lips, Normal Oropharynx, Other Head Exam: Atraumatic (No signs that she has bitten her tongue.), Normocephalic, Other Neck: Normal Inspection, Non-Tender, Full Range of Motion, Other (Anterior carotid endarterectomy scar). No: Lymphadenopathy (L), Lymphadenopathy (R) Respiratory/Chest: No Respiratory Distress, Lungs Clear, Normal Breath Sounds, Decreased Breath Sounds (Lungs are diminished to both lung lino by about 25%. Shallow respirations. No splinting). No: Respiratory Distress, Rales, Rhonchi, Wheezing Cardiovascular: Regular Rate, Rhythm, No Edema, No Gallop, No Murmur, No Rub, Other (Well-healed midline sternotomy incision.). No: Normal Peripheral Pulses GI/Abdominal: Normal Bowel Sounds, Soft, Non-Tender, No Organomegaly, No Mass, Pelvis Stable Neurological: CN II-XII Intact (LAD affect), Babinski (Right side left arm she prefers to hold it on her chest with her right arm. Definite weakness in the left upper extremity appreciated), Other (Is a flexion contracture of her left ankle and foot. She had increased spasticity left lower extremity with a prominent upgoing toe. She has a positive Babinski sign on the right side.). No: Normal Reflexes, Oriented x 3 (To time and place) DTR: 0: Tricep (R), Patella (L), Achilles (R), Achilles (L), 1+: Patella (R), 2+: Bicep (R) Extremities: Other (And contracture of the left foot and ankle appreciated.). No: Normal Inspection, Normal Range of Motion Psychiatric: Flat Affect Skin Exam: Warm, Dry, Intact, Normal Color, No Rash #1 Interpretation EKG Date: 11/07/20 Time: 18:17 Rhythm: NSR Rate (Beats/Min): 67 [place]: Normal P-Wave: Present QRS: Other (Q waves in V1 and V2 suggestive of old anteroseptal myocardial infarction. There is also decreased voltage in the limb leads.) ST-T: Other (T wave flattening in leads V1, V5, V6, 1, 3, aVF and mildly inverted in lead aVL. These by themselves are nonspecific but would advise electrolyte evaluation.) QT: Prolonged (Mildly prolonged) Course - Vital Signs Last Recorded V/S: Last Vital Signs Temp 36.8 C 11/07/20 22:15 Pulse 71 11/07/20 22:15 Resp 18 11/07/20 22:15 BP 145/76 H 11/07/20 22:15 Pulse Ox 96 11/07/20 22:15 - Orders/Labs/Meds Orders: Active Orders 24 hr Category Date Time Status Chest 1V Frontal [CR] Stat Exams 11/07/20 17:40 Taken Labs: Laboratory Tests 11/07/20 11/07/20 11/07/20 Range/Units 17:41 18:25 18:38 WBC 12.92 H (3.98-10.04) K/mm3 RBC 3.67 L (3.98-5.22) M/mm3 Hgb 8.8 L (11.2-15.7) gm/dl Hct 30.6 L (34.1-44.9) % MCV 83.4 D (79.4-94.8) fl MCH 24.0 L (25.6-32.2) pg MCHC 28.8 L (32.2-35.5) g/dl RDW Std Deviation 53.7 H (36.4-46.3) fL Plt Count 393 H (182-369) K/mm3 MPV 9.2 L (9.4-12.3) fl Neut % (Auto) 86.4 H (34.0-71.1) % Lymph % (Auto) 8.5 L (19.3-51.7) % [place] % (Auto) 4.2 L (4.7-12.5) % Eos % (Auto) 0.6 L (0.7-5.8) Baso % (Auto) 0.1 (0.1-1.2) % Neut # (Auto) 11.16 H (1.56-6.13) K/mm3 Lymph # (Auto) 1.10 L (1.18-3.74) K/mm3 [place] # (Auto) 0.54 H (0.24-0.36) K/mm3 Eos # (Auto) 0.08 (0.04-0.36) K/mm3 Baso # (Auto) 0.01 (0.01-0.08) K/mm3 Manual Slide Review Abnormal smear PT (9.7-12.0) SECONDS INR APTT (21.7-31.4) SECONDS D-Dimer, Quantitative (0.19-0.50) mg/L Sodium (136-145) mEq/L Potassium (3.5-5.1) mEq/L Chloride (98-107) mEq/L Carbon Dioxide (21-32) mEq/L Anion Gap (5-15) BUN (7-18) mg/dL Creatinine (0.55-1.02) mg/dL Est Cr Clr Drug Dosing mL/min Estimated GFR (MDRD) (>60) mL/min BUN/Creatinine Ratio (14-18) Glucose (80-115) mg/dL POC Glucose 193 H 235 H (80-115) mg/dL Hemoglobin A1c ( - 5.6) % Calcium (8.5-10.1) mg/dL Magnesium (1.8-2.4) mg/dl Total Bilirubin (0.2-1.0) mg/dL AST (15-37) U/L ALT (14-59) U/L Alkaline Phosphatase (46-116) U/L Troponin I (0.00-0.056) ng/mL C-Reactive Protein (<1.0) mg/dL NT-Pro-B Natriuret Pep (0-125) pg/mL Total Protein (6.4-8.2) g/dl Albumin (3.4-5.0) g/dl Globulin gm/dL Albumin/Globulin Ratio (1-2) Urine Color (Yellow) Urine Appearance (Clear) Urine pH (5.0-8.0) Ur Specific [place] (1.005-1.030) Urine Protein (Negative) Urine Glucose (UA) (Negative) Urine Ketones (Negative) Urine Occult Blood (Negative) Urine Nitrite (Negative) Urine Bilirubin (Negative) Urine Urobilinogen (0.2-1.0) Ur Leukocyte Esterase (Negative) Urine RBC (0-5) /hpf Urine WBC (0-5) /hpf Ur Squamous Epith Cells (0-5) /hpf Urine Bacteria (FEW) /hpf Urine Mucus (FEW) /hpf 11/07/20 11/07/20 11/07/20 Range/Units 18:38 18:38 18:38 WBC (3.98-10.04) K/mm3 RBC (3.98-5.22) M/mm3 Hgb (11.2-15.7) gm/dl Hct (34.1-44.9) % MCV (79.4-94.8) fl MCH (25.6-32.2) pg MCHC (32.2-35.5) g/dl RDW Std Deviation (36.4-46.3) fL Plt Count (182-369) K/mm3 MPV (9.4-12.3) fl Neut % (Auto) (34.0-71.1) % Lymph % (Auto) (19.3-51.7) % [place] % (Auto) (4.7-12.5) % Eos % (Auto) (0.7-5.8) Baso % (Auto) (0.1-1.2) % Neut # (Auto) (1.56-6.13) K/mm3 Lymph # (Auto) (1.18-3.74) K/mm3 [place] # (Auto) (0.24-0.36) K/mm3 Eos # (Auto) (0.04-0.36) K/mm3 Baso # (Auto) (0.01-0.08) K/mm3 Manual Slide Review PT 10.7 (9.7-12.0) SECONDS INR 1.00 APTT 25.9 (21.7-31.4) SECONDS D-Dimer, Quantitative 0.26 (0.19-0.50) mg/L Sodium 140 (136-145) mEq/L Potassium 4.2 (3.5-5.1) mEq/L Chloride 107 (98-107) mEq/L Carbon Dioxide 23 (21-32) mEq/L Anion Gap 14.2 (5-15) BUN 39 H (7-18) mg/dL Creatinine 1.3 H (0.55-1.02) mg/dL Est Cr Clr Drug Dosing 32.23 mL/min Estimated GFR (MDRD) 42 (>60) mL/min BUN/Creatinine Ratio 30.0 H (14-18) Glucose 214 H (80-115) mg/dL POC Glucose (80-115) mg/dL Hemoglobin A1c ( - 5.6) % Calcium 8.4 L (8.5-10.1) mg/dL Magnesium 2.2 (1.8-2.4) mg/dl Total Bilirubin 0.2 (0.2-1.0) mg/dL AST 22 (15-37) U/L ALT 31 (14-59) U/L Alkaline Phosphatase 100 (46-116) U/L Troponin I < 0.017 (0.00-0.056) ng/mL C-Reactive Protein 0.9 (<1.0) mg/dL NT-Pro-B Natriuret Pep 638 H (0-125) pg/mL Total Protein 6.3 L (6.4-8.2) g/dl Albumin 2.8 L (3.4-5.0) g/dl Globulin 3.5 gm/dL Albumin/Globulin Ratio 0.8 L (1-2) Urine Color (Yellow) Urine Appearance (Clear) Urine pH (5.0-8.0) Ur Specific [place] (1.005-1.030) Urine Protein (Negative) Urine Glucose (UA) (Negative) Urine Ketones (Negative) Urine Occult Blood (Negative) Urine Nitrite (Negative) Urine Bilirubin (Negative) Urine Urobilinogen (0.2-1.0) Ur Leukocyte Esterase (Negative) Urine RBC (0-5) /hpf Urine WBC (0-5) /hpf Ur Squamous Epith Cells (0-5) /hpf Urine Bacteria (FEW) /hpf Urine Mucus (FEW) /hpf 11/07/20 11/07/20 11/07/20 Range/Units 18:38 18:50 18:58 WBC (3.98-10.04) K/mm3 RBC (3.98-5.22) M/mm3 Hgb (11.2-15.7) gm/dl Hct (34.1-44.9) % MCV (79.4-94.8) fl MCH (25.6-32.2) pg MCHC (32.2-35.5) g/dl RDW Std Deviation (36.4-46.3) fL Plt Count (182-369) K/mm3 MPV (9.4-12.3) fl Neut % (Auto) (34.0-71.1) % Lymph % (Auto) (19.3-51.7) % [place] % (Auto) (4.7-12.5) % Eos % (Auto) (0.7-5.8) Baso % (Auto) (0.1-1.2) % Neut # (Auto) (1.56-6.13) K/mm3 Lymph # (Auto) (1.18-3.74) K/mm3 [place] # (Auto) (0.24-0.36) K/mm3 Eos # (Auto) (0.04-0.36) K/mm3 Baso # (Auto) (0.01-0.08) K/mm3 Manual Slide Review PT (9.7-12.0) SECONDS INR APTT (21.7-31.4) SECONDS D-Dimer, Quantitative (0.19-0.50) mg/L Sodium (136-145) mEq/L Potassium (3.5-5.1) mEq/L Chloride (98-107) mEq/L Carbon Dioxide (21-32) mEq/L Anion Gap (5-15) BUN (7-18) mg/dL Creatinine (0.55-1.02) mg/dL Est Cr Clr Drug Dosing mL/min Estimated GFR (MDRD) (>60) mL/min BUN/Creatinine Ratio (14-18) Glucose (80-115) mg/dL POC Glucose 291 H (80-115) mg/dL Hemoglobin A1c 7.8 H ( - 5.6) % Calcium (8.5-10.1) mg/dL Magnesium (1.8-2.4) mg/dl Total Bilirubin (0.2-1.0) mg/dL AST (15-37) U/L ALT (14-59) U/L Alkaline Phosphatase (46-116) U/L Troponin I (0.00-0.056) ng/mL C-Reactive Protein (<1.0) mg/dL NT-Pro-B Natriuret Pep (0-125) pg/mL Total Protein (6.4-8.2) g/dl Albumin (3.4-5.0) g/dl Globulin gm/dL Albumin/Globulin Ratio (1-2) Urine Color Yellow (Yellow) Urine Appearance Clear (Clear) Urine pH 5.5 (5.0-8.0) Ur Specific [place] 1.020 (1.005-1.030) Urine Protein Negative (Negative) Urine Glucose (UA) Negative (Negative) Urine Ketones Negative (Negative) Urine Occult Blood Negative (Negative) Urine Nitrite Positive H (Negative) Urine Bilirubin Negative (Negative) Urine Urobilinogen 0.2 (0.2-1.0) Ur Leukocyte Esterase Negative (Negative) Urine RBC 0-5 (0-5) /hpf Urine WBC 0-5 (0-5) /hpf Ur Squamous Epith Cells 5-10 H (0-5) /hpf Urine Bacteria Many H (FEW) /hpf Urine Mucus Not seen (FEW) /hpf 11/07/20 Range/Units 20:15 WBC (3.98-10.04) K/mm3 RBC (3.98-5.22) M/mm3 Hgb (11.2-15.7) gm/dl Hct (34.1-44.9) % MCV (79.4-94.8) fl MCH (25.6-32.2) pg MCHC (32.2-35.5) g/dl RDW Std Deviation (36.4-46.3) fL Plt Count (182-369) K/mm3 MPV (9.4-12.3) fl Neut % (Auto) (34.0-71.1) % Lymph % (Auto) (19.3-51.7) % [place] % (Auto) (4.7-12.5) % Eos % (Auto) (0.7-5.8) Baso % (Auto) (0.1-1.2) % Neut # (Auto) (1.56-6.13) K/mm3 Lymph # (Auto) (1.18-3.74) K/mm3 [place] # (Auto) (0.24-0.36) K/mm3 Eos # (Auto) (0.04-0.36) K/mm3 Baso # (Auto) (0.01-0.08) K/mm3 Manual Slide Review PT (9.7-12.0) SECONDS INR APTT (21.7-31.4) SECONDS D-Dimer, Quantitative (0.19-0.50) mg/L Sodium (136-145) mEq/L Potassium (3.5-5.1) mEq/L Chloride (98-107) mEq/L Carbon Dioxide (21-32) mEq/L Anion Gap (5-15) BUN (7-18) mg/dL Creatinine (0.55-1.02) mg/dL Est Cr Clr Drug Dosing mL/min Estimated GFR (MDRD) (>60) mL/min BUN/Creatinine Ratio (14-18) Glucose (80-115) mg/dL POC Glucose 308 H (80-115) mg/dL Hemoglobin A1c ( - 5.6) % Calcium (8.5-10.1) mg/dL Magnesium (1.8-2.4) mg/dl Total Bilirubin (0.2-1.0) mg/dL AST (15-37) U/L ALT (14-59) U/L Alkaline Phosphatase (46-116) U/L Troponin I (0.00-0.056) ng/mL C-Reactive Protein (<1.0) mg/dL NT-Pro-B Natriuret Pep (0-125) pg/mL Total Protein (6.4-8.2) g/dl Albumin (3.4-5.0) g/dl Globulin gm/dL Albumin/Globulin Ratio (1-2) Urine Color (Yellow) Urine Appearance (Clear) Urine pH (5.0-8.0) Ur Specific [place] (1.005-1.030) Urine Protein (Negative) Urine Glucose (UA) (Negative) Urine Ketones (Negative) Urine Occult Blood (Negative) Urine Nitrite (Negative) Urine Bilirubin (Negative) Urine Urobilinogen (0.2-1.0) Ur Leukocyte Esterase (Negative) Urine RBC (0-5) /hpf Urine WBC (0-5) /hpf Ur Squamous Epith Cells (0-5) /hpf Urine Bacteria (FEW) /hpf Urine Mucus (FEW) /hpf Meds: Medications Discontinued Medications Generic Name Dose Route Start Last Admin Trade Name Freq PRN Reason Stop Dose Admin Dextrose/Sodium Chloride 1,000 mls @ 150 mls/hr 11/07/20 17:45 11/07/20 17:57 Dextrose 5%-Normal Saline IV 150 mls/hr ASDIRECTED CUATE Administration - Radiology Interpretation Free Text/Narrative:: 60-year-old female who is a known diabetic for greater than 15 years presented to the ED with what sounds like a insulin reaction. She is a resident of [facility]. She states that she did receive her insulin for her supper meal which is usually 6 units of regular insulin but she had not yet been able to eat. Apparently the patient was found unresponsive cool and clammy and was suspected to have a having an insulin reaction. Initial blood sugar reported was 53 or 57. They managed to get some oral glucose into her then by the time the paramedics arrived she was starting to slowly come around. Paramedics did not administer any medications. Blood sugar upon arrival in the ED was 173 and the patient was now becoming much more alert and her dysarthria was improved where her speech was now discernible and she could answer my questions appropriately. She has had a previous CVA in the old notes and I suspect left-sided hemiparesis and she is unlikely to be able to walk as she has severe flexion contracture deformity of her left foot and ankle. She has a Babinski reflex on both sides. IV will be D5 normal saline at 150 mils per hour. Blood sugars to be checked on the hour for 3 consecutive hours starting at [address] head will be done so that I can ascertain what form of neurolo gical insult she has had in the past. ECG routine labs to be performed as well. - Re-Assessments/Exams Free Text/Narrative Re-Assessment/Exam: 11/07/20 18:10: 1800 blood sugar was 235. Looking for food for her i.e. diabetic diet at this time. CT of the brain has been completed without contrast. Ventricles along with both basal cisterns and sulci over the convexities are moderately prominent. There is an old infarct noted within the upper right anterior parietal region. No other abnormal parenchymal densities are seen. No evidence of intracranial hemorrhage. No midline shift or mass- effect appreciated. Bone window settings were reviewed. Atherosclerotic calcification is seen within the vertebral vessels and the carotid siphon. Visualized paranasal sinuses show nothing acute. Mastoid sinuses show nothing acute. There is no acute calvarial abnormality noted. Old infarct within the posterior right parietal region which is stable from prior head CT study. The site of her infarct correlates with her left-sided neurological deficit apparent clinically. Noted atrophy is seen which includes the cerebellum. 11/07/20 19:06 blood sugar is currently 291. Hematology is back revealing a slightly elevated white count of 12.92 with 86.4% neutrophils. Infection needs to be ruled out but concern would be that she may have suffered a hypoglycemic seizure. Hemoglobin remains low at 8.8 with hematocrit of 30.6. Platelet count is normal at 393,000. Electrolytes are pending. Dr. Guzmán will take over care of this patient as it is change of shift. If her electrolytes are normal she will be transferred back to [facility]. Departure - Discharge Information *PRESCRIPTION DRUG MONITORING PROGRAM REVIEWED*: Not Applicable *COPY OF PRESCRIPTION DRUG MONITORING REPORT IN PATIENT AXEL: Not Applicable Sepsis Event Note (ED) - Evaluation Sepsis Screening Result: No Definite Risk - Focused Exam Vital Signs: Vital Signs Temp Pulse Resp BP Pulse Ox 11/07/20 22:15 36.8 C 71 18 145/76 H 96 - My Orders Last 24 Hours: My Active Orders 11/07/20 17:40 Chest 1V Frontal [CR] Stat - Assessment/Plan Last 24 Hours: My Active Orders 11/07/20 17:40 Chest 1V Frontal [CR] Stat
--- NOTE | 2020-11-07 18:18 | CT ---
Head CT Technique: Multiple axial sections through the brain were obtained. Intravenous contrast was not utilized. Reconstructed coronal and sagittal images were obtained. Comparison: Prior head CT study of 05/09/20. Findings: Ventricles along with basal cisterns and sulci of the convexities are moderately prominent. Old infarct is noted within the upper right anterior parietal region. No other abnormal parenchymal densities are seen. No evidence of intracranial hemorrhage. No midline shift or mass-effect is appreciated. Bone window settings were reviewed. Atherosclerotic calcification is seen within the vertebral vessels and carotid siphon. Visualized paranasal sinuses show nothing acute. Visualized mastoid sinuses show nothing acute. No acute calvarial abnormality is appreciated. Impression: 1. Old infarct within the posterior right parietal region which is stable from prior head CT study. 2. Atrophy is seen which includes the cerebellum. 3. Nothing acute is appreciated on noncontrast head CT exam. Diagnostic code #2
[2020-11-07 18:59] LABS: HEMOGLOBIN A1C 7.8 %
[2020-11-07 22:17] VITALS: BP 145/76; PULSE 71
--- NOTE | 2020-11-08 07:41 | CR ---
Chest: Portable view of the chest is obtained. Comparison: Prior chest x-ray of 05/09/20. Heart size and mediastinum are normal. Sternotomy wires are noted for prosthetic heart valve. Two surgical clips are seen presumably from prior cholecystectomy. Lungs are clear with no acute parenchymal change. Bony structures are grossly intact. Impression: 1. Nothing acute is seen on chest x-ray. Diagnostic code #2
== END 2020-11-07 21:00 ==
LOC: JD.ED 17:36
DX: E13.649 Other specified diabetes mellitus with hypoglycemia without coma (principal); T38.3X5A Adverse effect of insulin and oral hypoglycemic [antidiabetic] drugs, initial encounter; I13.0 Hypertensive heart and chronic kidney disease with heart failure and stage 1 through stage 4 chronic kidney disease, or unspecified chronic kidney disease; E13.22 Other specified diabetes mellitus with diabetic chronic kidney disease; N18.9 Chronic kidney disease, unspecified; I50.9 Heart failure, unspecified; I25.10 Atherosclerotic heart disease of native coronary artery without angina pectoris; E78.00 Pure hypercholesterolemia, unspecified; M19.90 Unspecified osteoarthritis, unspecified site; Z91.048 Other nonmedicinal substance allergy status; Z79.82 Long term (current) use of aspirin; Z79.899 Other long term (current) drug therapy; R55 Syncope and collapse
CPT/HCPCS: 36415; 70450; 71045; 80053; 81001; 82962; 83036; 83735; 83880; 84484; 85025; 85379; 85610; 85730; 86140; 93005; 99285; J7042; 93010

== ENCOUNTER 2021-08-23 09:03 | Emergency (ER) | payer MEDICARE, MEDICAID ==
[2021-08-23 09:33] VITALS: BP 102/57; PULSE 74
[2021-08-23] MEDS ORDERED: Sodium Chloride 0.9% 10 ML Syringe FLUSH PRN (09:40)
[2021-08-23] MEDS ORDERED: HYDROmorphone 0.5 MG/0.5 ML Syringe IVPUSH ONE (09:43)
[2021-08-23] MEDS ORDERED: Ondansetron 4 MG/2 ML SDV IVPUSH ONE (09:43)
--- NOTE | 2021-08-23 10:09 | EDM.PDOC ---
ED HPI GENERAL MEDICAL PROBLEM - General Chief Complaint: Lower Extremity Injury/Pain Stated Complaint: SENT BY [facility]/RT FOOT PAIN Time Seen by Provider: 08/23/21 09:31 Source of Information: Reports: Patient, RN History Limitations: Reports: No Limitations - History of Present Illness INITIAL COMMENTS - FREE TEXT/NARRATIVE: 61-year-old female presents to the emergency department today from [facility] with complaints of a right lower extremity fracture. Patient is a resident of [facility]. Apparently the patient had an unwitnessed fall at the [facility] on [facility] August 2021. She was sent to the clinic today to be evaluated due to pain, swelling and bruising to the lower extremity. X- rays at [facility] did confirm a tib-fib fracture and the patient was sent here to this emergency department. Right Lower Leg Pain Score (Numeric/FACES): 6 - Related Data Allergies Allergy/AdvReac Type Severity Reaction Status Date / Time adhesive tape Allergy Rash Verified 11/07/20 18:34 simvastatin [From Zocor] AdvReac Muscle Verified 11/07/20 18:34 Aches Zjgrtms-FNA-HlJ Reductase AdvReac Muscle Verified 11/07/20 18:34 Inhibitor Aches [Uwilnri-Owh-Uvr Reductase Inhibitor] Home Meds: Home Meds Pravastatin [Pravachol] 20 mg PO QPM 07/21/18 [History] carvediloL [Carvedilol] 25 mg PO BID 07/21/18 [History] Acetaminophen [Tylenol Arthritis] 650 mg PO QID 05/02/20 [History] Escitalopram Oxalate [Lexapro] 20 mg PO DAILY 05/02/20 [History] Insulin Aspart [NovoLOG] 6 unit SUBCUT TID 05/02/20 [History] Insulin Glargine,Hum.Rec.Anlog [Lantus Solostar] 4 units SUBCUT BEDTIME 05/02/20 [History] Solifenacin Succinate 10 mg PO QPM 05/02/20 [History] traMADol [Ultram] 50 mg PO TID 05/02/20 [History] Aspirin [Halfprin] 81 mg PO DAILY 05/09/20 [History] Insulin Glarg,Human.Rec.Analog [Lantus Solostar] 10 unit SUBCUT DAILY #2 pen 05/11/20 [Rx] lisinopriL [Prinivil] 10 mg PO DAILY 30 Days #30 tab 05/11/20 [Rx] amLODIPine [Norvasc] 2.5 mg PO DAILY 11/07/20 [History] Past Medical History HEENT History: Reports: Cataract, Impaired Vision Other HEENT History: patient states wears glasses but not here Cardiovascular History: Reports: Bypass, CAD, Heart Failure, High Cholesterol, Hypertension, Other (See Below) Other Cardiovascular History: Left Carotid Artery is occluded. 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 Musculoskeletal History: Reports: Arthritis, Other (See Below) Other Musculoskeletal History: generalized muscle weakness, unsteadiness on feet, pain in R knee, pain in R shoulder, displaced bicondylar fracture of right tibia Neurological History: Reports: CVA Psychiatric History: Reports: Anxiety, Depression, Mood Swings, Other (See Below) Other Psychiatric History: "amnesia, memory deficit." Endocrine/Metabolic History: Reports: Diabetes, Type II Hematologic History: Reports: Iron Deficiency Immunologic History: Reports: None Oncologic (Cancer) History: Reports: None - Infectious Disease History Infectious Disease History: Reports: Chicken Pox, Measles, Mumps Other Infectious Disease History: from prior admit hx - Past Surgical History HEENT Surgical History: Reports: Cataract Surgery Other HEENT Surgeries/Procedures: unspecified visual disturbance Cardiovascular Surgical History: Reports: Coronary Artery Bypass Other Cardiovascular Surgeries/Procedures: Per SNF diagnosis list GI Surgical History: Reports: Bariatric Procedure, Cholecystectomy, Other (See Below) Musculoskeletal Surgical History: Reports: Other (See Below) Other Musculoskeletal Surgeries/Procedures:: rt wrist fracture & Rt tibia fracture Dermatological Surgical History: Reports: Plastic Surgical Reconstruction/Repair Social & Family History - Family History Family Medical History: No Pertinent Family History - Caffeine Use Caffeine Use: Reports: Coffee - Living Situation & Occupation Living situation: Reports: Single, Extended Care Facility (Currently residing at [facility]) Occupation: Disabled Review of Systems - Review of Systems Review Of Systems: Comprehensive ROS is negative, except as noted in HPI. ED EXAM, GENERAL - Physical Exam Exam: See Below Exam Limited By: No Limitations General Appearance: Alert, WD/WN, Mild Distress Ears: Normal External Exam, Hearing Grossly Normal Nose: Normal Inspection Throat/Mouth: Normal Inspection, Normal Lips, Normal Voice, No Airway Compromise Head: Atraumatic Neck: Normal Inspection, Supple Respiratory/Chest: No Respiratory Distress, Lungs Clear, Normal Breath Sounds, No Accessory Muscle Use, Chest Non-Tender Cardiovascular: Normal Peripheral Pulses, Regular Rate, Rhythm, No Edema, No Murmur Peripheral Pulses: 2+: Radial (L), Radial (R), Dorsalis Pedis (L), Dorsalis Pedis (R) (doppled) GI/Abdominal: Normal Bowel Sounds, Soft, Non-Tender, No Distention (Female) Exam: Deferred Rectal (Female) Exam: Deferred Back Exam: Normal Inspection Extremities: Normal Inspection, Normal Range of Motion, Non-Tender, No Pedal Edema, Normal Capillary Refill Neurological: Alert, Oriented, Normal Cognition Psychiatric: Normal Affect, Normal Mood Skin Exam: Warm, Dry, Intact, Normal Color, No Rash Lymphatic: No Adenopathy ED TRAUMA EXTREMITY PROCEDURES - Splinting Right Lower Extremity Splint Site: right lower extremity Pre-Procedure NV Status: Normal Post-Procedure NV Status: Normal Splint Material: Fiberglass Splint Design: Stirrup, Posterior Applied & Form Fitted By: Provider, Nurse Provider Post-Splint Application NV Check: NV Status Normal, Good Position Complications: No #1 Interpretation EKG Date: 08/23/21 Time: 09:54 Rhythm: NSR Rate (Beats/Min): 76 Ponce: Normal P-Wave: Present QRS: Normal ST-T: Normal QT: Normal EKG Interpretation Comments: Per Dr. Guzmán interpretation: Sinus rhythm at 76 bpm with a PAC, normal axis with no ischemia Course - Vital Signs Text/Narrative:: As stated above, patient presents with right lower extremity tib-fib fracture. Physical exam reveals swelling, bruising and pain noted to the right distal tib- fib area as well as the right foot. CMS is intact and patient is able to wiggle her toes. Right pedal pulse was doppled. Waiting to review x-ray that was sent over from [facility]. Patient at this time is slightly hypotensive with systolic blood pressures in the upper 90s however she is not symptomatic. Will obtain EKG, lab studies to include a CBC, CMP, magnesium, PT/INR and PTT preemptively in case patient will need surgery. We will also have nursing staff place a saline lock and medicate the patient with Dilaudid and Zofran. Last Recorded V/S: Last Vital Signs Temp 98.4 F 08/23/21 09:29 Pulse 74 08/23/21 09:29 Resp 14 08/23/21 09:29 BP 102/57 L 08/23/21 09:29 Pulse Ox 100 08/23/21 09:29 - Orders/Labs/Meds Orders: Active Orders 24 hr Category Date Time Status Sodium Chloride 0.9% [Saline Flush] Med 08/23/21 09:40 Active 10 ml FLUSH ASDIRECTED PRN Saline Lock Insert [OM.PC] Stat Oth 08/23/21 09:40 Ordered Medication Orders Sodium Chloride (Sodium Chloride 0.9% 10 Ml Syringe) 10 ml FLUSH ASDIRECTED PRN PRN Reason: Keep Vein Open Last Admin: 08/23/21 10:15 Dose: 10 ml Documented by: [id number] Labs: Laboratory Tests 08/23/21 08/23/21 08/23/21 Range/Units 10:06 10:06 10:06 WBC 9.87 (3.98-10.04) K/mm3 RBC 3.41 L (3.98-5.22) M/mm3 Hgb 10.2 L (11.2-15.7) gm/dl Hct 33.1 L (34.1-44.9) % MCV 97.1 H D (79.4-94.8) fl MCH 29.9 (25.6-32.2) pg MCHC 30.8 L (32.2-35.5) g/dl RDW Std Deviation 46.2 (36.4-46.3) fL Plt Count 293 D (182-369) K/mm3 MPV 10.4 (9.4-12.3) fl Neut % (Auto) 79.7 H (34.0-71.1) % Lymph % (Auto) 10.2 L (19.3-51.7) % [place] % (Auto) 8.7 (4.7-12.5) % Eos % (Auto) 1.1 (0.7-5.8) Baso % (Auto) 0.1 (0.1-1.2) % Neut # (Auto) 7.86 H (1.56-6.13) K/mm3 Lymph # (Auto) 1.01 L (1.18-3.74) K/mm3 [place] # (Auto) 0.86 H (0.24-0.36) K/mm3 Eos # (Auto) 0.11 (0.04-0.36) K/mm3 Baso # (Auto) 0.01 (0.01-0.08) K/mm3 PT (9.7-12.0) SECONDS INR APTT 27.3 (21.7-31.4) SECONDS Sodium (136-145) mEq/L Potassium (3.5-5.1) mEq/L Chloride (98-107) mEq/L Carbon Dioxide (21-32) mEq/L Anion Gap (5-15) BUN (7-18) mg/dL Creatinine (0.55-1.02) mg/dL Est Cr Clr Drug Dosing Estimated GFR (MDRD) (>60) mL/min BUN/Creatinine Ratio (14-18) Glucose (70-99) mg/dL Calcium (8.5-10.1) mg/dL Magnesium (1.8-2.4) mg/dL Total Bilirubin (0.2-1.0) mg/dL AST (15-37) U/L ALT (14-59) U/L Alkaline Phosphatase (46-116) U/L Total Protein (6.4-8.2) g/dl Albumin (3.4-5.0) g/dl Globulin gm/dL Albumin/Globulin Ratio (1-2) SARS-CoV-2 RNA (SARAH) Negative (NEGATIVE) 08/23/21 08/23/21 Range/Units 10:06 10:06 WBC (3.98-10.04) K/mm3 RBC (3.98-5.22) M/mm3 Hgb (11.2-15.7) gm/dl Hct (34.1-44.9) % MCV (79.4-94.8) fl MCH (25.6-32.2) pg MCHC (32.2-35.5) g/dl RDW Std Deviation (36.4-46.3) fL Plt Count (182-369) K/mm3 MPV (9.4-12.3) fl Neut % (Auto) (34.0-71.1) % Lymph % (Auto) (19.3-51.7) % [place] % (Auto) (4.7-12.5) % Eos % (Auto) (0.7-5.8) Baso % (Auto) (0.1-1.2) % Neut # (Auto) (1.56-6.13) K/mm3 Lymph # (Auto) (1.18-3.74) K/mm3 [place] # (Auto) (0.24-0.36) K/mm3 Eos # (Auto) (0.04-0.36) K/mm3 Baso # (Auto) (0.01-0.08) K/mm3 PT 10.4 (9.7-12.0) SECONDS INR 0.93 APTT (21.7-31.4) SECONDS Sodium 144 (136-145) mEq/L Potassium 4.9 (3.5-5.1) mEq/L Chloride 109 H (98-107) mEq/L Carbon Dioxide 25 (21-32) mEq/L Anion Gap 14.9 (5-15) BUN 35 H (7-18) mg/dL Creatinine 1.3 H (0.55-1.02) mg/dL Est Cr Clr Drug Dosing TNP Estimated GFR (MDRD) 41 (>60) mL/min BUN/Creatinine Ratio 26.9 H (14-18) Glucose 212 H (70-99) mg/dL Calcium 8.1 L (8.5-10.1) mg/dL Magnesium 2.1 (1.8-2.4) mg/dL Total Bilirubin 0.6 (0.2-1.0) mg/dL AST 29 (15-37) U/L ALT 42 (14-59) U/L Alkaline Phosphatase 94 (46-116) U/L Total Protein 6.0 L (6.4-8.2) g/dl Albumin 3.3 L (3.4-5.0) g/dl Globulin 2.7 gm/dL Albumin/Globulin Ratio 1.2 (1-2) SARS-CoV-2 RNA (SARAH) (NEGATIVE) Meds: Medications Generic Name Dose Route Start Last Admin Trade Name Freq PRN Reason Stop Dose Admin Sodium Chloride 10 ml 08/23/21 09:40 08/23/21 10:15 Sodium Chloride 0.9% 10 Ml Syringe FLUSH 10 ml ASDIRECTED PRN Administration Keep Vein Open Discontinued Medications Generic Name Dose Route Start Last Admin Trade Name Corrina PRN Reason Stop Dose Admin Hydromorphone HCl 0.25 mg 08/23/21 09:43 08/23/21 10:11 Hydromorphone 0.5 Mg/0.5 Ml Syringe IVPUSH 08/23/21 09:44 0.25 mg ONETIME ONE Administration Ondansetron HCl 4 mg 08/23/21 09:43 08/23/21 10:10 Ondansetron 4 Mg/2 Ml Sdv IVPUSH 08/23/21 09:44 4 mg ONETIME ONE Administration - Radiology Interpretation Free Text/Narrative:: X-ray of right lower extremity from [facility] were reviewed and distal fractures noted to tib-fib. - Re-Assessments/Exams Free Text/Narrative Re-Assessment/Exam: 08/23/21 11:21 Dr. Matos, orthopedic surgeon, was consulted regarding the patient's fracture. Recommends splinting and to follow-up with him on Friday. Appointment has been scheduled with his office for 9:30 AM on August 27. 08/23/21 11:48 Patient will be discharged to [facility]. Recommend that she take Tylenol for the discomfort. Departure - Departure Time of Disposition: 11:50 Disposition: DC/Tfer to [facility] 61 Condition: Good Clinical Impression: Tibia/fibula fracture Qualifiers: Encounter type: initial encounter Fracture type: closed Laterality: right Qualified Code(s): S82.201A - Unspecified fracture of shaft of right tibia, in itial encounter for closed fracture; S82.401A - Unspecified fracture of shaft of right fibula, initial encounter for closed fracture - Discharge Information Referrals: Estrada Marinelli MD [Primary Care Provider] - Forms: ED Department Discharge Additional Instructions: Lynnette seen in the emergency department today for a fracture to her right lower extremity. X-rays were reviewed and fracture is noted to the tibia and fibula on the right leg. Dr. Matos, orthopedic surgeon was consulted and recommended a splint be placed. She has a follow-up appointment scheduled with him at [facility] on August 27 at 9:30 AM where she will have a permanent cast placed at that time. Recommend Tylenol 650 mg every 4 hours as needed for discomfort. Recommend ice 30 minutes at a time every 3 hours while awake. Elevate the right leg on pillows as much as possible. Do not get the splint wet and do not remove the splint. Sepsis Event Note (ED) - Evaluation Sepsis Screening Result: No Definite Risk - Focused Exam Vital Signs: Vital Signs Temp Pulse Resp BP Pulse Ox 08/23/21 09:29 98.4 F 74 14 102/57 L 100 - My Orders Last 24 Hours: My Active Orders 08/23/21 09:40 Sodium Chloride 0.9% [Saline Flush] 10 ml FLUSH ASDIRECTED PRN Saline Lock Insert [OM.PC] Stat - Assessment/Plan Last 24 Hours: My Active Orders 08/23/21 09:40 Sodium Chloride 0.9% [Saline Flush] 10 ml FLUSH ASDIRECTED PRN Saline Lock Insert [OM.PC] Stat
== END 2021-08-23 12:19 ==
LOC: JD.ED 09:03
DX: S82.201A Unspecified fracture of shaft of right tibia, initial encounter for closed fracture (principal); S82.401A Unspecified fracture of shaft of right fibula, initial encounter for closed fracture; I25.10 Atherosclerotic heart disease of native coronary artery without angina pectoris; I11.0 Hypertensive heart disease with heart failure; I50.9 Heart failure, unspecified; E78.00 Pure hypercholesterolemia, unspecified; K21.9 Gastro-esophageal reflux disease without esophagitis; E11.9 Type 2 diabetes mellitus without complications; Z86.73 Personal history of transient ischemic attack (TIA), and cerebral infarction without residual deficits; Z91.048 Other nonmedicinal substance allergy status; Z88.8 Allergy status to other drugs, medicaments and biological substances; Z79.82 Long term (current) use of aspirin; Z79.4 Long term (current) use of insulin; Z79.899 Other long term (current) drug therapy; Z20.822 Contact with and (suspected) exposure to COVID-19; W18.30XA Fall on same level, unspecified, initial encounter; Y92.129 Unspecified place in nursing home as the place of occurrence of the external cause
CPT/HCPCS: 29125; 36415; 80053; 83735; 85025; 85610; 85730; 93005; 96374; 96375; 99283; J1170; J2405; U0002

== ENCOUNTER 2021-08-25 17:33 | Emergency (ER) | payer MEDICARE, MEDICAID ==
[2021-08-25 18:10] VITALS: BP 173/82; PULSE 93
--- NOTE | 2021-08-25 18:44 | EDM.PDOC ---
ED HPI GENERAL MEDICAL PROBLEM - General Chief Complaint: Behavioral/Psych Stated Complaint: [facility] Time Seen by Provider: 08/25/21 18:27 Source of Information: Reports: Patient, RN Notes Reviewed History Limitations: Reports: No Limitations - History of Present Illness INITIAL COMMENTS - FREE TEXT/NARRATIVE: Patient is a 61-year-old female who presents to the ER via [facility] for an emotional outburst earlier today. Patient resides at [facility], it was reported by the charge nurse at [facility] that the patient was being very aggressive with them and it is not typical for her behaviors. Patient's not been known to have any sick-like symptoms fevers chills cough shortness of breath anything like that. She does have a foot that has been broken recently. When I go in and talk with the patient she states that the staff try to move her earlier this afternoon, shut the TV off and did not turn back on, when she wanted to listen to the TV. She states a few hours later they come back in to move her and she asked for the TV again but they said she could not so she became angry with them. Not having any pain anywhere. Patient has been nothing but appropriate when answering all questions asked. 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 SPECIALIST: Reports: Other Medication(s) Other 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 SPECIALIST: Ativan - Related Data Allergies Allergy/AdvReac Type Severity Reaction Status Date / Time adhesive tape Allergy Rash Verified 11/07/20 18:34 simvastatin [From Zocor] AdvReac Muscle Verified 11/07/20 18:34 Aches Hnjlaoh-ANM-GzQ Reductase AdvReac Muscle Verified 11/07/20 18:34 Inhibitor Aches [Kuvlqso-Wdr-Ywr Reductase Inhibitor] Home Meds: Home Meds Pravastatin [Pravachol] 20 mg PO QPM 07/21/18 [History] carvediloL [Carvedilol] 25 mg PO BID 07/21/18 [History] Acetaminophen [Tylenol Arthritis] 650 mg PO QID 05/02/20 [History] Escitalopram Oxalate [Lexapro] 20 mg PO DAILY 05/02/20 [History] Insulin Aspart [NovoLOG] 6 unit SUBCUT TID 05/02/20 [History] Insulin Glargine,Hum.Rec.Anlog [Lantus Solostar] 4 units SUBCUT BEDTIME 08/11/20 [History] Solifenacin Succinate 10 mg PO QPM 05/02/20 [History] traMADol [Ultram] 50 mg PO TID 05/02/20 [History] Aspirin [Halfprin] 81 mg PO DAILY 05/09/20 [History] Insulin Glarg,Human.Rec.Analog [Lantus Solostar] 10 unit SUBCUT DAILY #2 pen 05/11/20 [Rx] lisinopriL [Prinivil] 10 mg PO DAILY 30 Days #30 tab 05/11/20 [Rx] amLODIPine [Norvasc] 2.5 mg PO DAILY 11/07/20 [History] Past Medical History HEENT History: Reports: Cataract, Impaired Vision Other HEENT History: patient states wears glasses but not here Cardiovascular History: Reports: Bypass, CAD, Heart Failure, High Cholesterol, Hypertension, Other (See Below) Other Cardiovascular History: Left Carotid Artery is occluded. 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 Musculoskeletal History: Reports: Arthritis, Other (See Below) Other Musculoskeletal History: generalized muscle weakness, unsteadiness on feet, pain in R knee, pain in R shoulder, displaced bicondylar fracture of right tibia Neurological History: Reports: CVA Psychiatric History: Reports: Anxiety, Depression, Mood Swings, Other (See Below) Other Psychiatric History: "amnesia, memory deficit." Endocrine/Metabolic History: Reports: Diabetes, Type II Hematologic History: Reports: Iron Deficiency Immunologic History: Reports: None Oncologic (Cancer) History: Reports: None - Infectious Disease History Infectious Disease History: Reports: Chicken Pox, Measles, Mumps Other Infectious Disease History: from prior admit hx - Past Surgical History HEENT Surgical History: Reports: Cataract Surgery Other HEENT Surgeries/Procedures: unspecified visual disturbance Cardiovascular Surgical History: Reports: Coronary Artery Bypass Other Cardiovascular Surgeries/Procedures: Per SNF diagnosis list GI Surgical History: Reports: Bariatric Procedure, Cholecystectomy, Other (See Below) Musculoskeletal Surgical History: Reports: Other (See Below) Other Musculoskeletal Surgeries/Procedures:: rt wrist fracture & Rt tibia fracture Dermatological Surgical History: Reports: Plastic Surgical Reconstruction/Repair Social & Family History - Family History Family Medical History: No Pertinent Family History - Tobacco Use Tobacco Use Status *Q: Never Tobacco User Second Hand Smoke Exposure: No - Caffeine Use Caffeine Use: Reports: None - Recreational Drug Use Recreational Drug Use: No - Living Situation & Occupation Living situation: Reports: Single, Extended Care Facility (Currently residing at [facility]) Occupation: Disabled ED ROS GENERAL - Review of Systems Review Of Systems: Comprehensive ROS is negative, except as noted in HPI. ED EXAM, GENERAL - Physical Exam Exam: See Below Exam Limited By: No Limitations General Appearance: Alert, WD/WN, No Apparent Distress Respiratory/Chest: No Respiratory Distress, Lungs Clear, Normal Breath Sounds, No Accessory Muscle Use, Chest Non-Tender Cardiovascular: Normal Peripheral Pulses, Regular Rate, Rhythm, No Edema Peripheral Pulses: 2+: Radial (L), Radial (R) Extremities: Normal Inspection, Normal Capillary Refill Neurological: Alert, Oriented, Normal Cognition, No Motor/Sensory Deficits Psychiatric: Normal Affect, Normal Mood Skin Exam: Warm, Dry, Intact, Normal Color, No Rash Course - Vital Signs Last Recorded V/S: Last Vital Signs Temp 97.7 F 08/25/21 17:41 Pulse 93 08/25/21 17:41 Resp 14 08/25/21 17:41 BP 173/82 H 08/25/21 17:41 Pulse Ox 98 08/25/21 17:41 - Re-Assessments/Exams Free Text/Narrative Re-Assessment/Exam: 08/25/21 18:39 Patient presents to the ER for her emotional outburst earlier today. Patient states she feels fine and is talking with me appropriately, not threatening or not aggressive at all. Sounds like it was a misunderstanding been to the staff and her and we will have her discharged home with general recommendations. Departure - Departure Time of Disposition: 18:44 Disposition: Home, Self-Care 01 Condition: Good Clinical Impression: Emotional crisis, acute reaction to stress - Discharge Information *PRESCRIPTION DRUG MONITORING PROGRAM REVIEWED*: No *COPY OF PRESCRIPTION DRUG MONITORING REPORT IN PATIENT AXEL: No Referrals: PCP,None [Primary Care Provider] - Additional Instructions: You were evaluated in the ER today for your aggressive behaviors earlier today. This was thought to be a misunderstanding between you and staff. You have no sick-like symptoms to suggest any infectious process of be causing these issues. Continue all other medications as previously prescribed by your regular provider and follow-up with them this week some time for ongoing medication management if warranted. Do not hesitate to return to the ER at any time if symptoms change or worsen. Sepsis Event Note (ED) - Evaluation Sepsis Screening Result: No Definite Risk - Focused Exam Vital Signs: Vital Signs Temp Pulse Resp BP Pulse Ox 08/25/21 17:41 97.7 F 93 14 173/82 H 98
== END 2021-08-25 20:11 | disposition home or self-care (01) ==
LOC: JD.ED 17:33
DX: F43.0 Acute stress reaction (principal); F93.9 Childhood emotional disorder, unspecified; E11.9 Type 2 diabetes mellitus without complications; I25.10 Atherosclerotic heart disease of native coronary artery without angina pectoris; I11.0 Hypertensive heart disease with heart failure; I50.9 Heart failure, unspecified; E78.00 Pure hypercholesterolemia, unspecified; K21.9 Gastro-esophageal reflux disease without esophagitis; Z95.1 Presence of aortocoronary bypass graft; Z86.73 Personal history of transient ischemic attack (TIA), and cerebral infarction without residual deficits; Z91.048 Other nonmedicinal substance allergy status; Z88.8 Allergy status to other drugs, medicaments and biological substances; Z79.4 Long term (current) use of insulin; Z79.82 Long term (current) use of aspirin; Z79.899 Other long term (current) drug therapy
CPT/HCPCS: 99285

== ENCOUNTER 2021-11-15 17:37 | Emergency (ER) | payer MEDICARE, MEDICAID ==
[2021-11-15 17:49] VITALS: BP 146/60; PULSE 88
== END 2021-11-15 19:25 ==
LOC: SUPCPDRO 17:37 → JD.ED 17:37
DX: R44.8 Other symptoms and signs involving general sensations and perceptions (principal); I25.10 Atherosclerotic heart disease of native coronary artery without angina pectoris; E78.00 Pure hypercholesterolemia, unspecified; I13.0 Hypertensive heart and chronic kidney disease with heart failure and stage 1 through stage 4 chronic kidney disease, or unspecified chronic kidney disease; E11.22 Type 2 diabetes mellitus with diabetic chronic kidney disease; N18.9 Chronic kidney disease, unspecified; I50.9 Heart failure, unspecified; Z86.73 Personal history of transient ischemic attack (TIA), and cerebral infarction without residual deficits; Z95.1 Presence of aortocoronary bypass graft; Z91.048 Other nonmedicinal substance allergy status; Z88.8 Allergy status to other drugs, medicaments and biological substances; Z79.82 Long term (current) use of aspirin; Z79.4 Long term (current) use of insulin; Z79.899 Other long term (current) drug therapy
CPT/HCPCS: 99283; 99284